=== PATIENT | female | born 1960 | race Caucasian/White ===

== ENCOUNTER 2020-04-16 09:00 | Outpatient (REF) | payer OTHER, SELFPAY ==
[2020-04-16 11:20] LABS: MANUAL DIFF FLAG NO
[2020-04-16 11:26] LABS: Basophils Absolute Auto 0.1 X10*3/uL (0.0-0.2); Basophils Percent Auto 0.8 % (0-2); Eosinophils Absolute Auto 0.2 X10*3/uL (0.0-0.4); Eosinophils Percent Auto 2.2 % (0-4); Hematocrit 44.3 % (37-47); Hemoglobin 14.2 g/dl (12.0-16.0); Imm Gran Abs Auto 0.04 X10*3/uL (0.00-0.03); Imm Gran Pct Auto 0.4 % (0.0-0.4); Lymphocytes Absolute Auto 2.7 X10*3/uL (1.2-4.9); Lymphocytes Percent Auto 29.3 % (20-40); Mean Corpuscular HGB Conc 32.1 g/dl (31.0-35.0); Mean Corpuscular Hemoglobin 29.4 pg (27.0-33.0); Mean Corpuscular Volume 91.7 fL (80-98); Mean Platelet Volume 10.3 fL (9.4-12.3); Monocytes Absolute Auto 0.6 X10*3/uL (0.1-1.2); Monocytes Percent Auto 6.7 % (2-11); Neutrophils Absolute Auto 5.5 X10*3/uL (2.0-8.3); Neutrophils Percent Auto 60.6 % (45-73); Platelet Count 295 X10*3/uL (160-400); Red Blood Count 4.83 X10*6/uL (4.20-5.50); Red Cell Distribution Width 12.7 % (11.0-16.0); White Blood Count 9.1 X10*3/uL (4.8-10.8)
[2020-04-16 11:48] LABS: Alanine Aminotransferase 23 U/L (0-31); Albumin Level 4.2 g/dL (3.5-5.0); Alkaline Phosphatase 85 U/L (39-117); Anion Gap 10 (12-20); Aspartate Amino Transferase 25 U/L (5-31); Bilirubin Total 0.2 mg/dL (0.0-1.0); Blood Urea Nitrogen 17 mg/dL (9-16); Calcium 8.9 mg/dL (8.4-10.2); Carbon Dioxide 33 mmol/L (22-29); Chloride 103 mmol/L (96-108); Estimated Glomerular Filt Rate > 60; Glucose Fasting 92 mg/dL (60-99); Potassium 5.5 mmol/l (3.3-5.1); Sodium 140 mmol/L (135-145); Total Protein 6.7 g/dL (6.5-8.0)
[2020-04-16 12:11] LABS: TSH reflex Free T4 2.29 mIU/mL (0.32-4.0); Vitamin D 25-OH Total 18.3 ng/mL (>30)
[2020-04-16 12:23] LABS: Folate 6.9 ng/mL (> or = 4.0); Vitamin B12 798 pg/mL (200-900)
== END 2020-04-16 09:01 | disposition home or self-care (01) ==
LOC: HO.HMGCLDS 09:00
PROVIDERS: Absent Provider Internal Medicine; PCP Internal Medicine; Visit Provider Internal Medicine
DX: Z20.828 Contact with and (suspected) exposure to other viral communicable diseases (principal); F32.9 Major depressive disorder, single episode, unspecified; R44.0 Auditory hallucinations
CPT/HCPCS: 36415; 80053; 82306; 82607; 82746; 84443; 85025; C9803; U0003

== ENCOUNTER 2020-04-30 11:16 | Outpatient (REF) | payer OTHER, SELFPAY ==
--- NOTE | 2020-04-30 11:53 | MM_ITS ---
EXAMINATION: MM SCREENING DIGITAL BREAST TOMOSYNTHESIS, BILATERAL CLINICAL INFORMATION: Screening. Asymptomatic. The lifetime risk of breast cancer based on the Tyrer-Cuzick Model is 4%. COMPARISON: Mammography: 02/27/2019, 04/15/2017 TECHNIQUE: Digital breast tomosynthesis is performed in both the craniocaudal and mediolateral oblique views along with computer-aided detection (CAD). Synthesized 2D images are generated from the tomosynthesis. FINDINGS: There are scattered areas of fibroglandular density (ACR BI-RADS breast composition Category b). There are no significant masses, abnormal calcifications, or other abnormalities. No significant changes. Small dermal lesion posterior inferior right breast. MM/MM tomosynthesis screening BI IMPRESSION: No significant changes from prior exams. ASSESSMENT: BI-RADS 1: Negative RECOMMENDATION: Routine annual mammography screening. This patient's information was entered into a reminder system with a target due date for their next mammogram.
[2020-04-30 14:20] LABS: Anion Gap 14 (12-20); Carbon Dioxide 26 mmol/L (22-29); Chloride 103 mmol/L (96-108); Potassium 4.5 mmol/l (3.3-5.1); Sodium 138 mmol/L (135-145)
[2020-04-30 15:01] LABS: Vitamin B12 679 pg/mL (200-900)
[2020-05-05 13:38] LABS: Vitamin D 25-OH, D2 <4 ng/mL; Vitamin D 25-OH, D3 53 ng/mL; Vitamin D 25-OH, Total 53 ng/mL (30-100)
== END 2020-04-30 11:17 | disposition home or self-care (01) ==
LOC: HO.MAMMO 11:16
PROVIDERS: PCP Internal Medicine; Visit Provider Internal Medicine
DX: E87.5 Hyperkalemia (principal); R53.83 Other fatigue; Z78.0 Asymptomatic menopausal state; E55.9 Vitamin D deficiency, unspecified
CPT/HCPCS: 77063; 77067; 80051; 82306; 82607

== ENCOUNTER 2020-05-13 15:29 | Outpatient (REF) | payer OTHER, SELFPAY ==
--- NOTE | 2020-05-13 16:00 | MR_ITS ---
EXAMINATION: MR BRAIN WITHOUT CONTRAST CLINICAL INFORMATION: Encephalopathy COMPARISON: None. TECHNIQUE: MRI of the brain was obtained using routine sequences without contrast. FINDINGS: Posterior fossa structures are normal. The craniocervical junction is normal. Midline structures including the posterior pituitary bright spot are normal. There is no intracranial mass, mass effect, or shift of midline structures. No abnormal extra axial fluid collection. The lateral and third ventricles are normal and proportionate to the subarachnoid spaces and there is no evidence of hydrocephalus. There is no acute ischemia. Scattered foci of T2 prolongation present throughout the subcortical and periventricular white matter. No pathological magnetic susceptibility artifact is demonstrated. The intracranial vascular flow voids including the major dural venous sinuses are preserved. Mastoid air cells are clear. Mild mucosal thickening throughout the ethmoid air cells. Globes and orbits are symmetric. MR/MR head/brain wo con IMPRESSION: * No acute or subacute intracranial pathology. * There are scattered nonspecific foci of white matter signal abnormality. 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
== END 2020-05-13 15:30 | disposition home or self-care (01) ==
LOC: HO.MRI 15:29
PROVIDERS: Visit Provider Psychiatry & Neurology Neurology
DX: G93.40 Encephalopathy, unspecified (principal)
CPT/HCPCS: 70551

== ENCOUNTER 2020-07-11 16:22 | Outpatient (REF) | payer OTHER, SELFPAY | END 2020-07-11 16:23 | disposition home or self-care (01) | LOC: HO.LNP 16:22 | PROVIDERS: Visit Provider Hospitalist | DX: J45.21 Mild intermittent asthma with (acute) exacerbation (principal); Z20.822 Contact with and (suspected) exposure to COVID-19 | CPT/HCPCS: U0003; U0005 ==

== ENCOUNTER 2020-07-22 10:01 | Emergency (ER) | payer OTHER, SELFPAY ==
[2020-07-22 10:47] VITALS: PULSE 78; RESP 18; O2SAT 98; BMI 26.2
== END 2020-07-22 14:38 | disposition left against medical advice (07) ==
PROVIDERS: Emergency Provider Emergency Medicine; PCP Internal Medicine
DX: R10.9 Unspecified abdominal pain (principal); R11.0 Nausea
CPT/HCPCS: 99282

== ENCOUNTER 2020-08-26 13:56 | Outpatient (REF) | payer OTHER, SELFPAY ==
[2020-08-26 16:28] LABS: MANUAL DIFF FLAG NO
[2020-08-26 16:34] LABS: Basophils Absolute Auto 0.1 X10*3/uL (0.0-0.2); Basophils Percent Auto 0.9 % (0-2); Eosinophils Absolute Auto 0.1 X10*3/uL (0.0-0.4); Eosinophils Percent Auto 1.5 % (0-4); Hemoglobin 14.4 g/dl (12.0-16.0); Imm Gran Abs Auto 0.03 X10*3/uL (0.00-0.03); Imm Gran Pct Auto 0.4 % (0.0-0.4); Lymphocytes Absolute Auto 2.4 X10*3/uL (1.2-4.9); Lymphocytes Percent Auto 30.5 % (20-40); Mean Corpuscular Hemoglobin 29.3 pg (27.0-33.0); Mean Corpuscular Volume 91.5 fL (80-98); Mean Platelet Volume 10.6 fL (9.4-12.3); Monocytes Absolute Auto 0.5 X10*3/uL (0.1-1.2); Monocytes Percent Auto 5.8 % (2-11); Neutrophils Absolute Auto 4.8 X10*3/uL (2.0-8.3); Neutrophils Percent Auto 60.9 % (45-73); Platelet Count 293 X10*3/uL (160-400); Red Blood Count 4.92 X10*6/uL (4.20-5.50); White Blood Count 7.9 X10*3/uL (4.8-10.8)
[2020-08-26 17:26] LABS: Alanine Aminotransferase 34 U/L (0-31); Anion Gap 15 (12-20); Aspartate Amino Transferase 29 U/L (5-31); Blood Urea Nitrogen 21 mg/dL (9-16); Calcium 9.3 mg/dL (8.4-10.2); Carbon Dioxide 27 mmol/L (22-29); Chloride 101 mmol/L (96-108); Cholesterol 266 mg/dL; Estimated Glomerular Filt Rate > 60; Glucose Fasting 86 mg/dL (60-99); HDL Cholesterol 78 mg/dL; LDL Cholesterol Calculated 166 mg/dl; Potassium 4.1 mmol/L (3.3-5.1); Sodium 139 mmol/L (135-145); Triglycerides 110 mg/dL
[2020-08-26 17:50] LABS: Vitamin D 25-OH Total 34.2 ng/mL (>30)
[2020-08-29 09:01] LABS: HPV 16 RNA NOT DETECTED (NOT DETECTED); HPV mRNA E6/E7 rflx Detected (Not Detected)
== END 2020-08-26 13:57 | disposition home or self-care (01) ==
LOC: HO.HMGCLDS 13:56
PROVIDERS: PCP Internal Medicine; Visit Provider Internal Medicine
DX: Z00.01 Encounter for general adult medical examination with abnormal findings (principal); Z12.4 Encounter for screening for malignant neoplasm of cervix; Z11.51 Encounter for screening for human papillomavirus (HPV); E78.5 Hyperlipidemia, unspecified; F32.9 Major depressive disorder, single episode, unspecified; I10 Essential (primary) hypertension
CPT/HCPCS: 36415; 80048; 80061; 82306; 84450; 84460; 85025; 87624; 87625; 88141; 88142

== ENCOUNTER 2020-11-12 17:13 | Outpatient (REF) | payer OTHER, SELFPAY | END 2020-11-12 17:14 | disposition home or self-care (01) | LOC: HO.LAB 17:13 | PROVIDERS: Visit Provider Nurse Practitioner Family | DX: R05 Cough (principal); Z20.822 Contact with and (suspected) exposure to COVID-19 | CPT/HCPCS: U0003; U0005 ==

== ENCOUNTER 2020-11-13 11:43 | Outpatient (REF) | payer OTHER, SELFPAY ==
--- NOTE | ~2020-11-13 | XR_ITS ---
EXAMINATION: XR CHEST CLINICAL INFORMATION: Cough. COMPARISON: None TECHNIQUE: 2 views of the chest were obtained. FINDINGS: No significant abnormality is noted involving the heart, lungs, mediastinum, bony thorax or soft tissues. XR/XR chest 2V IMPRESSION: Unremarkable chest examination.
== END 2020-11-13 11:44 | disposition home or self-care (01) ==
LOC: HO.HMGCX 11:43
PROVIDERS: PCP Internal Medicine; Visit Provider Internal Medicine
DX: R05 Cough (principal)
CPT/HCPCS: 71046

== ENCOUNTER → 2020-11-28 09:21 | Outpatient (BNVA) | payer OTHER, SELFPAY | PROVIDERS: PCP Internal Medicine; Referring Provider Internal Medicine; Visit Provider Surgery | DX: L72.3 Sebaceous cyst (principal) | CPT/HCPCS: 99202 ==

== ENCOUNTER 2020-12-06 13:40 | Outpatient (REF) | payer OTHER, SELFPAY ==
[2020-12-06 13:44] VITALS: BP 133/75; PULSE 79; RESP 17; TEMP 36.7; O2SAT 98; BMI 27.8
--- NOTE | 2020-12-06 15:29 | P.OP_ITS ---
Operative Note Operative Note Date of Service: 12/06/20 Narrative: Preoperative diagnosis: epidermal inclusion cyst times 4 posterior neck Postoperative diagnosis: same Procedure: excision of epidermal inclusion cyst x4 posterior neck Surgeon: Troy Macias MD Senior Piping Designer: no physician Anesthesia: local Indications for procedure: 60-year-old female with previous history of infected cyst of the posterior neck now presenting with 4 irritating epidermal inclusion cyst of the posterior neck below the hairline. To her located adjacent to each other to the right of midline and 2 are located lateral in the left neck. Operative findings: Epidermal inclusion cyst x4 posterior neck Specimen: epidermal inclusion cyst x4 posterior neck Estimated blood loss: 5 mL Complications: none Procedure details: patient was brought to the minor surgery suite and placed in a prone position. The site of surgery was confirmed by the patient and informed consent confirmed. The patient's neck was prepped with Betadine and draped in a sterile fashion. Local anesthesia consisting of 1% lidocaine with epinephrine was infiltrated around each of the epidermal inclusion cyst. It should be noted that 2 Of the lesions located to the right of midline were directly adjacent to each other were excised with 1 incision. beginning with the 2 lesions on the right neck elliptical incision was created oriented transversely to include both cyst. This was carried out through subcutaneous tissue and around the cyst wall. Sharp dissection was used to excise the cyst completely. This was sent to pathology for further examination. Dermis was reapproximated using interrupted 3-0 Polysorb sutures. Skin was then closed using interrupted 4-0 nylon sutures. Attention was then directed to the medial left neck lesion were again local anesthesia was infiltrated around the lesion and an elliptical incision created with a scalpel. This was carried out through subcutaneous tissue and around the cyst wall. The lesion was excised and sent to pathology for further examination. Skin was then closed using interrupted 4-0 nylon sutures . Attention was then directed to the lateral left neck lesion were again additional local was infiltrated surrounding the lesion. An elliptical incision created in a transverse fashion was then made with a 15 blade. This was carried out through subcutaneous tissue and around the cyst wall. The lesion was completely excised and sent toPathology for further examination. Skin was then closed using interrupted 4-0 nylon sutures. Sterile dressings and paper tape were then applied. The patient tolerated the procedure well. She was discharged to home in stable condition.
== END 2020-12-06 13:41 | disposition home or self-care (01) ==
LOC: HO.MS 13:40
PROVIDERS: PCP Internal Medicine; Visit Provider Surgery
PROC: (CPT 11422; principal; 2020-12-06 13:50)
DX: L72.0 Epidermal cyst (principal); F32.9 Major depressive disorder, single episode, unspecified; Z79.899 Other long term (current) drug therapy
CPT/HCPCS: 11422 ×3; 12041; 88304

== ENCOUNTER → 2020-12-13 10:04 | Outpatient (BNVA) | payer OTHER, SELFPAY | PROVIDERS: PCP Internal Medicine; Referring Provider Internal Medicine; Visit Provider Surgery | DX: Z48.817 Encounter for surgical aftercare following surgery on the skin and subcutaneous tissue (principal); Z87.2 Personal history of diseases of the skin and subcutaneous tissue | CPT/HCPCS: 99212 ==

== ENCOUNTER 2021-07-09 10:44 | Outpatient (REF) | payer OTHER, SELFPAY ==
--- NOTE | ~2021-07-09 | CT_ITS ---
EXAMINATION: CT CHEST SCREENING CLINICAL INFORMATION: Current smoker. 46 pack year history. COMPARISON: Previous chest CT November 2019 TECHNIQUE: Multidetector volumetric CT imaging of the chest is performed without contrast using low dose technique. Additional 2D coronal and sagittal reformatted images and axial 3D maximum intensity projection (MIP) images are generated on the CT workstation. This CT examination was performed using dose optimization techniques as appropriate, variously including the following: *Automated exposure control *Adjustment of mA and/or kV according to patient size (this includes techniques or standardized protocols for targeted exams where dose is matched to indication/reason for exam; i.e. extremities or head) *Use of iterative reconstruction technique DLP: 46 mGy-cm FINDINGS: LUNGS: There is evidence of emphysema. There are 2 new heterogeneous or semisolid left lower lobe nodules measuring 5 mm axial image 384 and 389 series 5. Pulmonary nodules are otherwise stable. The largest previously identified pulmonary nodule is a 4 mm heterogeneous or semisolid right upper lobe nodule axial image 98 series 5. No endobronchial or endotracheal lesion. MEDIASTINUM: The mediastinum is normal. PLEURA: There is no pleural effusion. No pleural mass or thickening. AXILLA: No lymphadenopathy. UPPER ABDOMEN: There is a 1.8 x 2.6 cm low-attenuation lesion in the right lobe of the liver that is stable. OSSEOUS STRUCTURES: There are degenerative changes of the spine.. CT/CT lung screening IMPRESSION: Emphysema. 2 new 5 mm heterogeneous or semisolid left lobe lower lobe nodules. Otherwise pulmonary nodules are stable. ASSESSMENT: Lung-RADS category 2: Benign RECOMMENDATION: Annual low-dose chest CT follow-up recommended.
== END 2021-07-09 10:45 | disposition home or self-care (01) ==
LOC: HO.CT 10:44
PROVIDERS: PCP Internal Medicine; Visit Provider Physician Assistant Medical
DX: Z12.2 Encounter for screening for malignant neoplasm of respiratory organs (principal); F17.200 Nicotine dependence, unspecified, uncomplicated
CPT/HCPCS: 71271

== ENCOUNTER → 2021-09-30 09:59 | Outpatient (BNVA) | payer OTHER, SELFPAY | PROVIDERS: PCP Internal Medicine; Referring Provider Internal Medicine; Visit Provider Surgery | DX: L72.3 Sebaceous cyst (principal) | CPT/HCPCS: 99212 ==

== ENCOUNTER 2021-10-24 | Outpatient (REF) | payer MEDICAID, SELFPAY ==
[2021-10-24 11:13] VITALS: BP 114/63; PULSE 90; RESP 16; TEMP 36.6; O2SAT 95
[2021-10-24 11:22] VITALS: BMI 29.2
--- NOTE | 2021-10-24 12:30 | W.PM.OPN ---
Operative Note Operative Note Date of Service: 10/24/21 Narrative: Preoperative diagnosis:Epidermal inclusion cyst x4 posterior neck, x1 left axilla, x1 left chest Postoperative diagnosis: same Procedure: excision of epidermal inclusion cyst x4 posterior neck, x1 left axilla, x1 left chest Surgeon: Troy Macias MD Director General: none Anesthesia: local Indications for procedure: 60-year-old female with history of multiple infected skin cyst presenting for excision of previously infected skin cyst of the posterior neck, left axilla, and left chest Operative findings: multiple skin cysts including posterior neck measuring 0.5, 1 cm, 0.5, 0.75 cm in diameter; left axilla measuring 1 cm diameter, left chest measuring 1 cm diameter Specimen: epidermal inclusion cyst as noted above Estimated blood loss: 2 mL Complications: none Procedure details: patient was brought to the minor surgery suite and placed in a prone position. The site of surgery was identified by the patient including 4 cysts located in the posterior neck, located in the left axilla, and 1 located below the left breast the left chest. After assuring informed consent the skin was prepped with Betadine and draped in a sterile fashion. Local anesthesia consisting of 1% lidocaine with epinephrine was then infiltrated around each of the 4 cysts. The 4 inclusion cyst of the posterior neck were excised using a 15 blade scalpel, creating an elliptical incision oriented transversely to excise the entire cyst down into the subcutaneous tissue. Each lesion was then passed off table and sent to pathology for further examination. The skin incisions were then closed using interrupted 4-0 nylon sutures. Sterile dressings consisting of 4 x 4 gauze and paper tape were then applied. Attention was then directed to the left axilla. She was placed in a supine position. Left arm was placed over her head. Skin was then prepped with Betadine and draped in a sterile fashion. Local anesthesia was then infiltrated around the cyst as previously marked. Elliptical incision was then made with a scalpel carried out through subcutaneous tissue and around the cyst wall. Cyst was then excised and sent to pathology for further examination. Skin was then closed using interrupted 4-0 nylon sutures. 2 x 2 gauze and Paper tape were then applied. Attention was then directed to the left chest cyst. This was an obviously infected cyst in could not be excised. The skin was prepped with Betadine and draped in a sterile fashion. Local anesthesia consisting of 1% lidocaine with epinephrine was then infiltrated surrounding the wound. This was then incised drained of a small purulent collection. The cyst wall was then excised with a scalpel. Wounds were then irrigated with saline solution. Wounds were then covered with dry sterile dressing and paper tape.
== END 2021-10-24 00:01 | disposition home or self-care (01) ==
LOC: HO.MS
PROVIDERS: PCP Internal Medicine; Visit Provider Surgery
PROC: (CPT 11423; principal; 2021-10-24 11:00)
DX: L72.0 Epidermal cyst (principal)
CPT/HCPCS: 11423; 11401 ×2; 88304

== ENCOUNTER → 2021-11-04 10:56 | Outpatient (BNVA) | payer MEDICARE, MEDICAID, SELFPAY | PROVIDERS: PCP Internal Medicine; Referring Provider Internal Medicine; Visit Provider Surgery | DX: Z13.89 Encounter for screening for other disorder (principal) ==

== ENCOUNTER 2021-12-10 07:34 | Outpatient (REF) | payer MEDICARE, MEDICAID, SELFPAY ==
--- NOTE | 2021-12-09 09:40 | P.CONAN_ITS ---
Documented by User: Tory Corona NP 12/09/21 09:41 HPI - Anesthesia Eval Consult details Narrative: 61yo F for Bilateral Excision Multiple Cyst groin and buttocks PMFSH Active Problems Active Problems: All Active Problems (Updated 10/24/21 @ 12:28 by Troy Macias MD) Folliculitis barbae (Acute) Hemorrhoids (Acute) Depression, major, recurrent (Acute) COVID-19 vaccination declined (Acute) Sebaceous cyst (Acute) Dyslipidemia (Acute) Vitamin D deficiency (Acute) Menopause (Acute) Refused influenza vaccine (Acute) Past Medical History Medical History Auditory hallucinations COVID-19 vaccination declined Depression, major, recurrent Dyslipidemia Refused influenza vaccine Family History Family History Father Substance use disorder Mother Lung cancer Substance use disorder Maternal Grandmother Diabetes mellitus Brother Lung cancer Substance use disorder Mental health disorder Brother Substance use disorder Brother Substance use disorder Brother Substance use disorder Brother Substance use disorder Sister Substance use disorder Mental health disorder Son No problems noted. Surgical History Surgical History H/O oophorectomy History of excision of epidermal inclusion cyst (10/24/21) Social History Social History Housing: Condominium Alcohol intake: current Alcohol intake frequency: does not drink Patient Tobacco Use Status: Current everyday Tobacco user e-Cigarette/Vaping Use: Never Used Are you DNR?: No Advance Directives: No Advance Directives Information Provided: Yes Recently lost weight without trying: No Nutrition Risks: No Nutritional Risk Patient : No service: No Current occupational status: unemployed Cognitive needs: No Hearing needs: No Vision needs: No Meds Allergies Allergy/AdvReac Type Severity Reaction Status Date / Time adhesive tape Allergy Intermediate BLISTER Verified 11/04/21 11:06 eggs Allergy Unknown nausea Verified 11/04/21 11:06 lorazepam AdvReac Unknown increased Verified 11/04/21 11:06 anxiety & anger Home Medications Medication Instructions Recorded Confirmed Last Taken Type atomoxetine 100 mg capsule 100 mg PO DAILY 08/27/21 11/04/21 12/10/21 History Exam Exam Date and Time: December 09, 2021 0940 Assessment and Plan Assessment Anesthesia Assessment: Chart Reviewed Documented by User: Annabel Fairchild MD 12/10/21 09:34 [facility] Past Medical History Medical History Auditory hallucinations COVID-19 vaccination declined Depression, major, recurrent Dyslipidemia Refused influenza vaccine Functional capacity: independent ambulation Patient : No Family History Family History Father Substance use disorder Mother Lung cancer Substance use disorder Maternal Grandmother Diabetes mellitus Brother Lung cancer Substance use disorder Mental health disorder Brother Substance use disorder Brother Substance use disorder Brother Substance use disorder Brother Substance use disorder Sister Substance use disorder Mental health disorder Son No problems noted. Family history of problems with anesthesia: No Surgical History Surgical History H/O oophorectomy History of excision of epidermal inclusion cyst (10/24/21) History of Problems with Anesthesia: No Social History Social History Housing: Condominium Alcohol intake: current Alcohol intake frequency: does not drink Patient Tobacco Use Status: Current everyday Tobacco user e-Cigarette/Vaping Use: Never Used Are you DNR?: No Advance Directives: No Advance Directives Information Provided: Yes Recently lost weight without trying: No Nutrition Risks: No Nutritional Risk Patient : No service: No Current occupational status: unemployed Cognitive needs: No Hearing needs: No Vision needs: No Meds Allergies Allergy/AdvReac Type Severity Reaction Status Date / Time adhesive tape Allergy Intermediate BLISTER Verified 11/04/21 11:06 eggs Allergy Unknown nausea Verified 11/04/21 11:06 lorazepam AdvReac Unknown increased Verified 11/04/21 11:06 anxiety & anger Home Medications Medication Instructions Recorded Confirmed Last Taken Type atomoxetine 100 mg capsule 100 mg PO DAILY 08/27/21 11/04/21 12/10/21 History Exam Airway Mallampati Class: II TM Dist: >3cm Neck ROM: Full Heart: RRR Lungs: CTA Assessment and Plan Final Anesthetic Review Family History of Problems with Anesthesia: No History of Problems with Anesthesia: No ASA Class: II Final Preanesthetic Review: No Changes in Pt Med Stat, Meds/Allgs Chart Reviewed, Consent Obtained/Reviewed and Anes Risks/Benef Reviewed Patient Risk: Low Procedure Risk: Low Anesthetic Plan Anesthetic Plan: GA Disposition: Standard PACU
[2021-12-10] VITALS (7 sets, daily range): BP systolic 103–130; BP diastolic 44–77; PULSE 71–88; RESP 16–18; TEMP 36.4–36.6; O2SAT 94–97; BMI 29.0
[2021-12-10] MEDS: Lactated Ringers 1,000 ML 100 ML IVCONT (07:59)
--- NOTE | 2021-12-10 08:54 | MHC.SHP ---
Pre-Procedural Eval Section A Date of Service: 12/10/21 The patient is an INPATIENT: No Changes since office visit: Yes Patient answered all questions; No Cold of Flu in the past 2 weeks, No New Medical Problems and No Changes in Medication The History & Physical has been completed within 30 days and I have reviewed it.: Yes Section B Chief Complaint: Other specified follicular disorders Allergies: Allergies Allergy/AdvReac Type Severity Reaction Status Date / Time adhesive tape Allergy Intermediate BLISTER Verified 11/04/21 11:06 eggs Allergy Unknown nausea Verified 11/04/21 11:06 lorazepam AdvReac Unknown increased Verified 11/04/21 11:06 anxiety & anger Plan Diagnosis/Plan: Unchanged I have reviewed the history and physical and performed a pertinent physical examination on my patient. No changes have occurred unless specified.
--- NOTE | 2021-12-10 10:14 | P.OP_ITS ---
Operative Note Operative Note Date of Service: 12/10/21 Narrative: Preoperative diagnosis: Bilateral groin cyst x3, left buttock cyst Postoperative diagnosis: same Procedure: excision of bilateral groin cyst 3 left buttock cyst 1 Surgeon: Troy Macias MD Taxation Accountant: no physician Anesthesia: general Indications for procedure: 61 old female with a previous history skin cyst with chronic infection presenting with 3 chronically draining cyst located in the pubis as well as the left buttock Operative findings: chronically inflamed draining epidermal inclusion cysts involving bilateral groins including 1 on the right 2 on left and 1 on the left buttock near the perianal skin each measures 1.5 cm in diameter. Lesions extend approximately 1.5 cm into the subcutaneous tissue. No abscess was encountered any of the cysts. Specimen: epidermal inclusion cyst x3 groins, x1 of buttock Estimated blood loss: 5 mL Complications: none Procedure details: patient was brought to the OR placed in a supine position. After administering general anesthesia she was placed in a frogleg position. A surgical time-out was called the consent confirmed. Patient received preoperative antibiotics and Venodyne boots were in place. Beginning on the right groin elliptical incision was made around the previously not cyst. This was carried out through subcutaneous tissue purulent trocars then used to dissect the lesion off the subcutaneous tissue. This was passed off the table and sent to pathology for further examination. Skin was then closed using interrupted 3-0 nylon sutures. Attention was then directed to the left groin where 2 cysts were identified 1 in the upper and the 2nd in the lower groin. Both lesions were X size with an elliptical incision down to subcutaneous tissue. Lesion with as excised off the subcutaneous tissue with electrocautery. Hemostasis was assured using electrocautery. Both lesions were then closed using interrupted 3-0 nylon sutures. Attention was then directed to the left buttock wound which was also reached 3 frog-leg position. Elliptical incision was made around this lesion and carried out through subcutaneous tissue. Lesion was excised using electrocautery. All 4 lesions were sent to pathology for further examination. Skin was closed using interrupted 3-0 nylon sutures. Sterile dressings consisting of fluff gauze were then applied. The patient tolerated the procedure well. Sponge, instrument, and needle counts reported as correct. The patient was transferred to PACU in stable condition.
[2021-12-10] MEDS: Acetaminophen 325 MG TABLET 975 MG PO (11:12)
--- NOTE | 2021-12-10 14:23 | HO.POSTANES ---
Post Anesthesia Evaluation Post Anesthesia Evaluation Vital Signs: Vital Signs Temp Pulse Resp BP Pulse Ox O2 Del Method O2 Flow Rate 12/10/21 11:12 97.9 F 83 16 107/58 L 95 Room Air 12/10/21 10:57 75 16 120/44 L 95 Room Air 12/10/21 10:42 76 16 114/45 L 94 Room Air 12/10/21 10:37 71 16 119/63 94 Room Air 12/10/21 10:32 72 16 113/77 94 Room Air 12/10/21 10:27 97.6 F 79 16 103/44 L 96 Nasal Cannula 2 12/10/21 07:40 98 F 88 18 130/75 97 Room Air Anesthesia: General LMA and General Mental Status: Awake Pain Control: Satisfactory Nausea/Vomiting: None Hydration: Adequate Anesthesia-Related Issues: No Anes. Related Issues
== END 2021-12-10 11:55 | disposition home or self-care (01) ==
LOC: HO.MS 07:34
PROVIDERS: PCP Internal Medicine; Visit Provider Surgery
PROC: (CPT 11402; principal; 2021-12-10 09:10)
DX: L72.0 Epidermal cyst (principal); L82.1 Other seborrheic keratosis
CPT/HCPCS: 11402 ×3; 88305; J0690; J1100; J2250; J2405; J2795; J3010

== ENCOUNTER → 2022-01-06 10:02 | Outpatient (BNVA) | payer MEDICARE, MEDICAID, SELFPAY | PROVIDERS: PCP Internal Medicine; Visit Provider Surgery | DX: L72.3 Sebaceous cyst (principal); Z79.899 Other long term (current) drug therapy | CPT/HCPCS: 99212 ==

== ENCOUNTER 2022-01-12 11:48 | Outpatient (REF) | payer MEDICARE, MEDICAID, SELFPAY ==
[2022-01-12 12:18] LABS: MANUAL DIFF FLAG NO
[2022-01-12 12:47] LABS: Basophils Absolute Auto 0.1 X10*3/uL (0.0-0.2); Eosinophils Absolute Auto 0.2 X10*3/uL (0.0-0.4); Eosinophils Percent Auto 2.4 % (0-4); Hematocrit 41.6 % (37.0-47.0); Hemoglobin 13.7 g/dl (12.0-16.0); Imm Gran Abs Auto 0.02 X10*3/uL (0.00-0.03); Imm Gran Pct Auto 0.3 % (0.0-0.4); Lymphocytes Absolute Auto 2.6 X10*3/uL (1.2-4.9); Lymphocytes Percent Auto 36.7 % (20-40); Mean Corpuscular HGB Conc 32.9 g/dl (31.0-35.0); Mean Corpuscular Hemoglobin 28.9 pg (27.0-33.0); Mean Corpuscular Volume 87.8 fL (80.0-98.0); Monocytes Absolute Auto 0.5 X10*3/uL (0.1-1.2); Monocytes Percent Auto 7.6 % (2-11); Neutrophils Absolute Auto 3.7 x10*3/uL (2.0-8.3); Platelet Count 288 X10*3/uL (160-400); Red Blood Count 4.74 X10*6/uL (4.20-5.50); Red Cell Distribution Width 12.7 % (11.0-16.0); White Blood Count 7.1 X10*3/uL (4.8-10.8)
[2022-01-12 13:09] LABS: Alanine Aminotransferase 28 U/L (0-31); Albumin Level 4.2 g/dL (3.5-5.0); Alkaline Phosphatase 89 U/L (39-117); Anion Gap 13 (12-20); Aspartate Amino Transferase 23 U/L (5-31); Bilirubin Total 0.3 mg/dL (0.0-1.0); Blood Urea Nitrogen 11 mg/dL (9-16); Calcium 9.2 mg/dL (8.4-10.2); Carbon Dioxide 29 mmol/L (22-29); Chloride 102 mmol/L (96-108); Cholesterol 243 mg/dL; Estimated Glomerular Filt Rate > 60; Glucose Random 83 mg/dL (60-115); HDL Cholesterol 57 mg/dL; LDL Cholesterol Calculated 165 mg/dl; Potassium 5.2 mmol/L (3.3-5.1); Sodium 139 mmol/L (135-145); Total Protein 6.9 g/dL (6.5-8.0); Triglycerides 109 mg/dL
[2022-01-12 13:31] LABS: TSH reflex Free T4 2.82 uIU/mL (0.32-4.0); Vitamin D 25-OH Total 29.7 ng/mL (>30)
[2022-01-13 04:57] LABS: CT PCR NOT DETECTED (Not Detect.); NG PCR NOT DETECTED (Not Detect.)
[2022-01-17 06:12] LABS: HPV mRNA E6/E7 rflx Not Detected (Not Detected)
== END 2022-01-12 11:49 | disposition home or self-care (01) ==
LOC: HO.LAB 11:48
PROVIDERS: PCP Internal Medicine; Visit Provider Advanced Practice Midwife
DX: Z01.419 Encounter for gynecological examination (general) (routine) without abnormal findings (principal); E87.5 Hyperkalemia; K52.9 Noninfective gastroenteritis and colitis, unspecified; E78.5 Hyperlipidemia, unspecified; E55.9 Vitamin D deficiency, unspecified; F32.9 Major depressive disorder, single episode, unspecified; Z78.0 Asymptomatic menopausal state; Z11.3 Encounter for screening for infections with a predominantly sexual mode of transmission; Z11.51 Encounter for screening for human papillomavirus (HPV)
CPT/HCPCS: 36415; 80053; 80061; 82306; 84443; 85025; 87491; 87591; 87624; 88142

== ENCOUNTER 2022-01-13 12:25 | Outpatient (REF) | payer MEDICARE, MEDICAID, SELFPAY ==
[2022-01-13 17:34] LABS: E. coli EAEC Not Detected (Not Detect.); E. coli EPEC Not Detected (Not Detect.); E. coli ETEC Not Detected (Not Detect.); Plesiomonas shigelloides Not Detected (Not Detect.); Salmonella Not Detected (Not Detect.); Vibrio Not Detected (Not Detect.); Vibrio Cholerae Not Detected (Not Detect.); Yersinia enterocolitica Not Detected (Not Detect.)
[2022-01-13 17:35] LABS: Adenovirus F 40/41 Not Detected (Not Detect.); Astrovirus Not Detected (Not Detect.); Cryptosporidium Not Detected (Not Detect.); Cyclospora cayetanensis Not Detected (Not Detect.); E. coli STEC Not Detected (Not Detect.); Entamoeba histolytica Not Detected (Not Detect.); Giardia lamblia Not Detected (Not Detect.); Norovirus GI/GII Not Detected (Not Detect.); Rotavirus A Not Detected (Not Detect.); Sapovirus Not Detected (Not Detect.); Shigella sp./EIEC Not Detected (Not Detect.)
[2022-01-13 17:39] LABS: Campylobacter Detected (Not Detect.)
== END 2022-01-13 12:26 | disposition home or self-care (01) ==
LOC: HO.HMGCLDS 12:25
PROVIDERS: PCP Internal Medicine; Visit Provider Internal Medicine
DX: K52.9 Noninfective gastroenteritis and colitis, unspecified (principal)
CPT/HCPCS: 36415; 87177; 87209; 87507

== ENCOUNTER 2022-02-10 10:51 | Outpatient (REF) | payer MEDICARE, MEDICAID, SELFPAY ==
[2022-02-10 11:00] VITALS: BP 131/65; PULSE 89; RESP 18; TEMP 36.7; O2SAT 99
--- NOTE | 2022-02-10 12:17 | W.PM.OPN ---
Operative Note Operative Note Date of Service: 02/10/22 Narrative: Preoperative diagnosis: Epidermal inclusion cyst right axilla and right breast Postoperative diagnosis: Same Procedure: Excision of epidermal inclusion cyst right axilla and right breast Surgeon: Troy Macias MD Supercalender Operator Helper: No physician Anesthesia: Local 2% lidocaine with epinephrine Indications for procedure: Painful epidermal inclusion cyst of right axilla and right breast Operative findings: Right axillary epidermal inclusion cyst measuring approximately 2 cm in diameter. Epidermal inclusion cyst of the right breast in the nipple-areolar complex measuring approximately 1 cm in diameter Specimen: Epidermal inclusion cyst right axilla and right breast Estimated blood loss: 2 mL Complications: None Procedure details: Patient was brought to the minor surgery suite and placed in a supine position. Site of surgery was confirmed by the patient. After assuring informed consent the skin was prepped with Betadine and draped in a sterile fashion. Local anesthesia was infiltrated around both lesions. Starting in the axilla an elliptical incision was created oriented in a transverse fashion around the palpable cyst. This was carried out through subcutaneous tissue around the cyst wall. This was passed off the table and sent to pathology for further examination. After assuring adequate hemostasis with light pressure the skin was closed using interrupted 4-0 nylon sutures. Attention was then directed to the right breast with lesion located in the 2 o'clock position in the nipple-areolar complex was also anesthetized with local anesthesia. Elliptical incision was then created in a radial fashion from the nipple. This was carried out through subcutaneous tissue and around the cyst wall. Once again this was passed off the table and sent to pathology for further examination. Skin was then closed using interrupted 4-0 nylon sutures. Sterile dressings consisting of 2 x 2 gauze and Tegaderm were then applied. The patient tolerated the procedure well. Sponge, instrument, and needle counts reported as correct. The patient was transferred to PACU in stable condition.
== END 2022-02-10 10:52 | disposition home or self-care (01) ==
LOC: HO.MS 10:51
PROVIDERS: PCP Internal Medicine; Visit Provider Surgery
PROC: (CPT 11602; principal; 2022-02-10 11:00)
PROC: (CPT 11602; 2022-02-10 11:00)
DX: C44.521 Squamous cell carcinoma of skin of breast (principal)
CPT/HCPCS: 11602; 11601; 88304; 88305

== ENCOUNTER → 2022-02-17 14:00 | Outpatient (BNVA) | payer MEDICARE, MEDICAID, SELFPAY | PROVIDERS: PCP Internal Medicine; Referring Provider Internal Medicine; Visit Provider Surgery | DX: Z08 Encounter for follow-up examination after completed treatment for malignant neoplasm (principal); C44.521 Squamous cell carcinoma of skin of breast; L72.3 Sebaceous cyst | CPT/HCPCS: 99212 ==

== ENCOUNTER 2022-03-02 14:23 | Outpatient (REF) | payer OTHER, SELFPAY ==
--- NOTE | ~2022-03-02 | MM_ITS ---
EXAMINATION: MM SCREENING DIGITAL BREAST TOMOSYNTHESIS, BILATERAL CLINICAL INFORMATION: Screening. Asymptomatic. History squamous cell cancer right areola border. The lifetime risk of breast cancer based on the Tyrer-Cuzick Model is 4%. COMPARISON: Mammography: 04/30/2020, 02/27/2019, 04/15/2017 TECHNIQUE: Digital breast tomosynthesis is performed in both the craniocaudal and mediolateral oblique views along with computer-aided detection (CAD). Synthesized 2D images are generated from the tomosynthesis. FINDINGS: There are scattered areas of fibroglandular density (ACR BI-RADS breast composition Category b). There are no significant masses, abnormal calcifications, or other abnormalities. Parenchymal pattern is similar to prior studies. There is no developing density or architectural abnormality. The axilla and skin contours are unremarkable. No significant changes. MM/MM tomosynthesis screening BI IMPRESSION: No mammographic evidence of malignancy. ASSESSMENT: BI-RADS 1: Negative RECOMMENDATION: Routine annual mammography screening. This patient's information was entered into a reminder system with a target due date for their next mammogram.
== END 2022-03-02 14:24 | disposition home or self-care (01) ==
LOC: HO.MAMMO 14:23
PROVIDERS: PCP Internal Medicine; Visit Provider Advanced Practice Midwife
DX: Z12.31 Encounter for screening mammogram for malignant neoplasm of breast (principal)
CPT/HCPCS: 77063; 77067

== ENCOUNTER 2022-09-02 12:31 | Outpatient (AMB) | payer OTHER, SELFPAY ==
--- OUTSIDE RECORDS SUMMARY | 2022-09-02 12:33 | XMS_ITS | Continuity of Care Document ---
Author Name Unknown Organization [facility] Address [address] [place] [address]- Care Team Providers Care Human Services Manager Name Role Phone Mikaela NASH, Leda Lee Primary Care Physician [place] [facility] [place] - 02/06/[address] [address]- Encounter Diagnosis Major depressive disorder, recurrent, moderate(Final) - Discharge Disposition: A-D/C Home Attending Physician: Sincere Perry MD Admitting Physician: Sincere Perry MD Referring Physician: Not on Staff, Referring MD Allergies, Adverse Reactions, Alerts No Known Medication Allergies Immunizations Not Given Vaccine Date Status Refusal Reason pneumococcal 23-valent vaccine 07/10/14 Not Given Patient Refuses influenza virus vaccine, inactivated 07/10/14 Not Given Patient Refuses Medications duloxetine 20 mg oral enteric coated capsule See Instructions, 1 capsule By Mouth for 5 days then 1 cap bid for 5 days then 2 caps qam, 1 cap qhs, # 30 capsule, 0 Refills, Maintenance, 05/20/20 12:56:00 EST, [facility]/pharmacy #[id number], Partial fill upon patient request if the prescription is for a sched... Start Date: 05/20/20 Status: Ordered hydrOXYzine hydrochloride 10 mg oral tablet 2 tablet = 20 mg, By Mouth, 4 times a day, PRN for anxiety, 0 Refills, Maintenance, 05/07/20 15:24:00 EST, Tablet, Partial fill upon patient request if the prescription is for a schedule II opioid drug. Start Date: 05/07/20 Status: Ordered SEROquel 25 mg oral tablet 25 mg, 1, tablet, By Mouth, Daily at bedtime, Refills 0, Maintenance, 05/07/20 15:21:00 EST, Partial fill upon patient request if the prescription is for a schedule II opioid drug. Start Date: 05/07/20 Status: Ordered sertraline 100 mg oral tablet 2 tablet = 200 mg, By Mouth, Daily, # 90 tablet, 0 Refills, Maintenance, 05/07/20 15:22:00 EST, Tablet, Partial fill upon patient request if the prescription is for a schedule II opioid drug. Start Date: 05/07/20 Status: Ordered traZODone 50 mg oral tablet 50 mg, 1, tablet, By Mouth, Daily at bedtime, Refills 0, Maintenance, 05/07/20 15:22:00 EST, Partial fill upon patient request if the prescription is for a schedule II opioid drug. Start Date: 05/07/20 Status: Ordered Problem List Condition Effective Dates Status Health Status Inform ant Anxiety(Confirmed) Active H/O osteomyelitis(Confirmed) Active H/O hidradenitis suppurativa(Confirmed) Active C6-C7 Cervical disc herniation(Confirmed) Active Social History Social History Type Response Smoking Status Former smoker; Tobac co user in household: No; Type: Cigarettes entered on: 07/09/14 Sex
[2022-09-02 12:55] VITALS: BP 100/70; PULSE 79; O2SAT 98; BMI 28.4
--- NOTE | 2022-09-02 12:55 | MHC.PC.OV ---
Vital Signs 09/02/22 12:55 Height 5 ft 2 in Weight 155 lb 6 oz BMI 28.4 BP 100/70 Blood Pressure Location Lt brachial Position Sitting Pulse 79 Pulse Source Pulse Oximeter Pulse Oximetry (%) 98 Oxygen Delivery Method Room Air Intake Visit Reasons: PE Intake Note: Pt is here today for PE Allergies adhesive tape Allergy (Intermediate, Verified 05/02/23 23:58) Blister egg Allergy (Unknown, Verified 05/02/23 23:58) Nausea lorazepam Adverse Reaction (Unknown, Verified 05/02/23 23:58) increased anxiety & anger Medication List - Last Reconciled 09/02/22 by Leda Al MD albuterol sulfate 90 mcg/actuation (ProAir HFA) 2 puffs inhalation Q4-6H PRN atomoxetine 100 mg PO DAILY clonazepam 0.25 mg PO DAILY PRN omega 1-vch-pgk-fish oil 1,000 mg (120 mg-180 mg) (Fish Oil) 1 cap PO DAILY quetiapine 25 mg PO BID Tobacco use date assessed: 09/02/22 HPI PE HPI Details 61-year-old lady here today for physical exam. Currently being seen by Psychiatry for treatment of depression/anxiety, ADD, currently doing well on present treatment> she is currently up-to-date with her cervical cancer screening and breast cancer screening, sees [facility] [place] [facility]. She had a screening colonoscopy done [address] Duffy, which only showed presence of hemorrhoids. She however has been complaining of feeling that something is present in her rectal area, interferes with her defecation, and notices occasional blood tinged stool. [facility] Medical History (Updated 04/29/23 @ 15:24 by Leda Al MD) Cough due to bronchospasm No vaccination-pt refuse Hemorrhoids with complication Erythema intertrigo Hemorrhoid thrombosis Anxiety ADHD Depression, major, recurrent COVID-19 vaccination declined Dyslipidemia Refused influenza vaccine Auditory hallucinations Surgical History History of hemorrhoidectomy History of excision of epidermal inclusion cyst (10/24/21) H/O oophorectomy Family History Father Substance use disorder Mother Lung cancer Substance use disorder Maternal Grandmother Diabetes mellitus Brother Lung cancer Substance use disorder Mental health disorder Brother Substance use disorder Brother Substance use disorder Brother Substance use disorder Brother Substance use disorder Sister Substance use disorder Mental health disorder Son No problems noted. Social History Housing: Condominium Alcohol intake: current Alcohol intake frequency: holidays/special occasions only Patient Tobacco Use Status: Current everyday Tobacco user Tobacco use type: Cigarette Cigarette Packs Per Day: 0.5 Cigarettes Per Day: 7 e-Cigarette/Vaping Use: Never Used Second Hand Smoke Exposure: No service: No Current occupational status: unemployed Cognitive needs: No Hearing needs: No Vision needs: No Female Reproductive History Menstrual Age of Menarche: 16 Questionnaire PHQ-9 Over the last 2 weeks, how often have you been bothered by any of the following problems? 1. Little interest or pleasure in doing things: several days 2. Feeling down, depressed, or hopeless: several days 3. Trouble falling or staying asleep, or sleeping too much: several days 4. Feeling tired or having little energy: several days 5. Poor appetite or overeating: several days 6. Feeling bad about yourself - or that you are a failure or have let yourself or your family down: more than half the days 7. Trouble concentrating on things, such as reading the newspaper or watching television: nearly every day 8. Moving or speaking so slowly that other people could have noticed. Or the opposite - being so fidgety or restless that you have been moving around a lot more than usual: several days Depression Screening Interpretation: Positive Depression Screening Follow-up: Existing condition, In treatment and Community Mental Health Worker F/U (Followed by psychiatry) 87157 - PHQ-9 Billing: Yes Source: Developed by Drs. Bahman Titus, Gena Martinez, Sergio Ching and colleagues, with an educational radha from [employer]. Thrive Questionnaire Declines Thrive assessment: No Date Thrive assessed: 09/02/22 I am a: Patient What is your living situation today?: I have a steady place to live Within the past 12 months, did the food you bought not last and you didn't have the money to get more?: Never true Within the past 12 months, did you worry whether your food would run out before you got money to buy more?: Never true Do you have trouble getting transportation to medical appointments?: No Do you have trouble with day-to-day activities such as bathing, preparing meals, shopping, managing finances, etc.?: No Are you currently unemployed and looking for a job?: Yes Are you interested in more education?: Yes Please select the resources that you would like help with: Job search/training and Education AUDIT C Alcohol Use Questionnaire (AUDIT-C) 1. How often do you have a drink containing alcohol?: Never Total Score: 0 ARCELIA-7 AMB Questionnaire ARCELIA-7 Date ARCELIA - 7 assessed: 09/02/22 Feeling nervous, anxious, or on edge: 1 = Several days Not being able to stop or control worryin = Several days Worrying too much about different things: 1 = Several days Trouble relaxin = Several days Being so restless that it is hard to sit still: 1 = Several days Becoming easily annoyed or irritable: 1 = Several days Feeling afraid as if something awful might happen: 1 = Several days Total ARCELIA-7 score (0-4 normal; 5-9 mild; 10-14 moderate; 15-21 severe): 7 Source: Developed by Drs. Bahman Titus, Gena Martinez, Sergio Ching and colleagues, with an educational radha from [employer]. ARCELIA-7 Assessment Billing ARCELIA-7 Assessment Tool: ARCELIA-7 Assessment 45783 Review of Systems Const Denies chills and Denies fever(s) Eyes Denies change in vision ENT Reports no additional complaints Card Denies chest pain, Denies dyspnea and Denies dyspnea on exertion Resp Denies cough, Denies dyspnea and Denies dyspnea on exertion GI Reports as per HPI, Denies hematochezia and Denies change in bowel habits Denies hematuria, Denies difficulty voiding, Denies urinary incontinence, Denies urinary hesitancy, Denies urinary urgency and Denies vaginal discharge Musc Denies back pain and Denies limited range of motion Skin/Breast Denies breast pain and Denies breast mass Neuro Denies focal weakness and Denies convulsions Psych Denies depression and Denies mood swings Endo Reports no additional complaints Lefty/Lymph Reports no additional complaints Aller/Immun Reports no additional complaints Physical exam (Primary Care) Vital Signs: Last Vital Signs Pulse 79 09/02/22 12:55 BP 100/70 09/02/22 12:55 Pulse Ox 98 09/02/22 12:55 Oxygen Delivery Method Room Air 09/02/22 12:55 BMI result Body Mass Index 28.4 Tobacco/Smoking Status: Tobacco use Status Tobacco use date assessed 09/02/22 09/02/22 13:12 Patient Tobacco Use Status Current everyday Tobacco 09/02/22 13:12 e-Cigarette/Vaping Use Never Used 09/02/22 13:12 Are you ready to quit: No Depression Screening Interpretation: Positive Depression Screening Follow-up: Existing condition, In treatment and Community Mental Health Worker F/U (Followed by psychiatry) Thrive Assessment: Date of Thrive Assessment Date Thrive assessed 09/02/22 09/02/22 13:12 Const Other: Alert oriented x3, no acute distress noted, normal gait Orientation/consciousness: patient oriented x3 HENMT Head: Yes normocephalic and Yes atraumatic Ears: hearing grossly normal bilaterally, TM's normal bilaterally and EAC's normal General nose exam: Normal external nose present and No nasal discharge present Face and sinus: Yes face symmetric Mouth: Normal oral and palatal mucosa present and moist mucous membranes Eyes General: appearance normal, both eyes and all related structures Neck Neck: Yes full ROM, Yes no lymphadenopathy and Yes supple Chest Breast/axilla palpation: normal palpation of the breasts Resp Auscultation: clear to auscultation bilaterally Cardio Rate: regular rate Rhythm: regular rhythm Heart sounds: S1 normal heart sound present and S2 normal heart sound present GI Palpation (GI): Soft to palpation, nontender, no guarding and no masses Rectal Exam - Female: hemorrhoids (Thrombosed, no active bleeding) Back/Spine/Pelvis Back: No back tenderness Skin Other: hyper pigmentation noted under both breasts and axillary area Neuro General: patient oriented x3, gait normal, moves all extremities, Normal light touch and pain sensation, no focal motor deficits and CN's II-XI intact bilaterally Extrem General: Yes full ROM, Yes no joint enlargement, Yes no pedal edema and Yes normal gait Psych Appearance: grossly normal Mental Status: mental status grossly normal Speech and movement: Normal speech and movement present Affect: normal affect Attitude: cooperative Thought process: Normal thought process present Thought content: Normal thought content present Assessment and Plan Assessment & Plan (1) Annual visit for general adult medical examination with abnormal findings: Code(s): Z00.01 - Encounter for general adult medical examination with abnormal findings Plan: Will check appropriate labs. Recommended dental visit every 6 months and regular eye exams, at least every 2 years. Take adequate calcium in diet and vitamin-D 3 at 2000 IU per cap once a day, in addition to weight-bearing exercises to help maintain good muscle tone and weight control. Instructed to do self-breast exam, and can not to get yearly mammogram. Up-to-date with her cervical cancer screening, goes to [facility] [place] [facility] for her routine Pap and pelvic exam. Up-to-date with her screening colonoscopy, but declines getting any vaccines (2) Dyslipidemia: Code(s): E78.5 - Hyperlipidemia, unspecified Plan: fasting lipid profile ordered . Continue with taking Crane 3 fatty acid supplements , in addition to adherence to low-cholesterol diet and regular exercise, at least 30 minutes 3 to 4 times a week. Advised patient to make healthy food choices, eat more fruits, vegetables, whole grains, wild caught fish and low-fat dairy. Limit amount of meat and fried or fatty food products, as well as processed foods and fast foods. (3) Hemorrhoid thrombosis: Code(s): K64.5 - Perianal venous thrombosis Plan: Surgical consult ordered (4) COVID-19 vaccination declined: Code(s): Z28.21 - Immunization not carried out because of patient refusal (5) Depression, major, recurrent: Code(s): F33.9 - Major depressive disorder, recurrent, unspecified Plan: Currently followed by psychiatry (6) Refused influenza vaccine: Code(s): Z28.21 - Immunization not carried out because of patient refusal (7) Erythema intertrigo: Code(s): L30.4 - Erythema intertrigo Plan: Prescription sent for nystatin , with directions on a proper use. Keep areas under breasts dry and clean at all time Orders: Orders Alanine Aminotransferase 09/02/22 Z00.01 - Encounter for general adult medical examination with abnormal findings, Z78.0 - Asymptomatic menopausal state, E55.9 - Vitamin D deficiency, unspecified, E78.5 - Hyperlipidemia, unspecified Complete Blood Count Auto Diff 09/02/22 Z00. - Encounter for general adult medical examination with abnormal findings, K64.5 - Perianal venous thrombosis Aspartate Amino Transferase 09/02/22 Z00.01 - Encounter for general adult medical examination with abnormal findings, Z78.0 - Asymptomatic menopausal state, E55.9 - Vitamin D deficiency, unspecified, E78.5 - Hyperlipidemia, unspecified Lipid Panel 09/02/22 Z00.01 - Encounter for general adult medical examination with abnormal findings, Z78.0 - Asymptomatic menopausal state, E55.9 - Vitamin D deficiency, unspecified, E78.5 - Hyperlipidemia, unspecified Vitamin D 25-OH Total 09/02/22 Z00.01 - Encounter for general adult medical examination with abnormal findings, Z78.0 - Asymptomatic menopausal state, E55.9 - Vitamin D deficiency, unspecified, E78.5 - Hyperlipidemia, unspecified Referrals General Surgery Referral K64.5 - Perianal venous thrombosis Medications: New nystatin 1 appl topical BID PRN 30 grams 3RF rash Coding Level of Care Code Est Pt Prev Care 40-64y(80848) Diagnoses Annual visit for general adult medical examination with abnormal findings Z00.01 Dyslipidemia E78.5 Hemorrhoid thrombosis K64.5 COVID-19 vaccination declined Z28.21 Depression, major, recurrent F33.9 Refused influenza vaccine Z28.21 Erythema intertrigo L30.4 Additional Codes ARCELIA-7 Assessment Billing - ARCELIA-7 Assessment Tool: ARCELIA-7 Assessment [id number] ([id number])
== END 2022-09-02 14:21 | disposition home or self-care (01) ==
LOC: HO.HMGC 12:31
PROVIDERS: PCP Internal Medicine; Visit Provider Internal Medicine
DX: Z00.01 Encounter for general adult medical examination with abnormal findings (principal); E78.5 Hyperlipidemia, unspecified; K64.5 Perianal venous thrombosis; F33.9 Major depressive disorder, recurrent, unspecified; Z28.21 Immunization not carried out because of patient refusal; L30.4 Erythema intertrigo
CPT/HCPCS: 99396

== ENCOUNTER 2022-09-02 13:53 | Outpatient (REF) | payer OTHER, SELFPAY ==
[2022-09-02 17:00] LABS: MANUAL DIFF FLAG NO
[2022-09-02 17:17] LABS: Basophils Absolute Auto 0.1 X10*3/uL (0.0-0.2); Basophils Percent Auto 1.1 % (0-2); Eosinophils Absolute Auto 0.2 X10*3/uL (0.0-0.4); Eosinophils Percent Auto 2.6 % (0-4); Hematocrit 42.8 % (37.0-47.0); Hemoglobin 14.1 g/dl (12.0-16.0); Imm Gran Abs Auto 0.04 X10*3/uL (0.00-0.03); Imm Gran Pct Auto 0.6 % (0.0-0.4); Lymphocytes Absolute Auto 2.5 X10*3/uL (1.2-4.9); Lymphocytes Percent Auto 38.2 % (20-40); Mean Corpuscular HGB Conc 32.9 g/dl (31.0-35.0); Mean Corpuscular Hemoglobin 29.8 pg (27.0-33.0); Mean Corpuscular Volume 90.5 fL (80.0-98.0); Mean Platelet Volume 10.4 fL (9.4-12.3); Monocytes Absolute Auto 0.5 X10*3/uL (0.1-1.2); Neutrophils Absolute Auto 3.3 x10*3/uL (2.0-8.3); Neutrophils Percent Auto 49.5 % (45-73); Platelet Count 277 X10*3/uL (160-400); Red Blood Count 4.73 X10*6/uL (4.20-5.50); Red Cell Distribution Width 13.1 % (11.0-16.0); White Blood Count 6.7 X10*3/uL (4.8-10.8)
[2022-09-02 17:32] LABS: Alanine Aminotransferase 32 U/L (0-31); Aspartate Amino Transferase 26 U/L (5-31); Cholesterol 254 mg/dL; HDL Cholesterol 63 mg/dL; LDL Cholesterol Calculated 172 mg/dl; Triglycerides 96 mg/dL
[2022-09-02 17:46] LABS: Vitamin D 25-OH Total 29.3 ng/mL (>30)
== END 2022-09-02 13:54 | disposition home or self-care (01) ==
LOC: HO.HMGCLDS 13:53
PROVIDERS: PCP Internal Medicine; Visit Provider Internal Medicine
DX: Z00.01 Encounter for general adult medical examination with abnormal findings (principal); E55.9 Vitamin D deficiency, unspecified; E78.5 Hyperlipidemia, unspecified; K64.5 Perianal venous thrombosis; Z78.0 Asymptomatic menopausal state
CPT/HCPCS: 36415; 80061; 82306; 84450; 84460; 85025

== ENCOUNTER 2022-09-03 09:16 | Outpatient (REF) | payer OTHER, SELFPAY ==
--- NOTE | ~2022-09-03 | CT_ITS ---
EXAMINATION: CT CHEST SCREENING CLINICAL INFORMATION: 46 pack year history. Current smoker. COMPARISON: Previous CT scans most recent July 2021 TECHNIQUE: Multidetector volumetric CT imaging of the chest is performed without contrast using low dose technique. Additional 2D coronal and sagittal reformatted images and axial 3D maximum intensity projection (MIP) images are generated on the CT workstation. This CT examination was performed using dose optimization techniques as appropriate, variously including the following: *Automated exposure control *Adjustment of mA and/or kV according to patient size (this includes techniques or standardized protocols for targeted exams where dose is matched to indication/reason for exam; i.e. extremities or head) *Use of iterative reconstruction technique DLP: 45 mGy-cm FINDINGS: LUNGS: Mild paraseptal emphysema. The two 5 mm semisolid left lower lobe pulmonary nodules that were new on July 2021 exam are no longer seen. Small pulmonary nodules are otherwise stable. MEDIASTINUM: The mediastinum is normal. CORONARY ARTERY CALCIFICATION: None visualized on this study. PLEURA: There is no pleural effusion. No pleural mass or thickening. AXILLA: No lymphadenopathy. UPPER ABDOMEN: Stable low-attenuation liver and right renal lesions probably representing cysts. Stable low-attenuation left adrenal lesion suggestive of a benign lipid rich adenoma. OSSEOUS STRUCTURES: Degenerative changes of the spine. CT/CT lung screening IMPRESSION: Emphysema. Previously identified 5 mm semisolid left lower lobe nodules that were new on July 2021 exam no longer seen. Otherwise pulmonary nodules are stable. ASSESSMENT: Lung-RADS category 2: Benign RECOMMENDATION: Annual low-dose chest CT follow-up recommended
== END 2022-09-03 09:17 | disposition home or self-care (01) ==
LOC: HO.CT 09:16
PROVIDERS: PCP Internal Medicine; Visit Provider Physician Assistant Medical
DX: Z12.2 Encounter for screening for malignant neoplasm of respiratory organs (principal); F17.210 Nicotine dependence, cigarettes, uncomplicated
CPT/HCPCS: 71271

== ENCOUNTER → 2022-09-17 11:31 | Outpatient (BNVA) | payer OTHER, SELFPAY | PROVIDERS: PCP Internal Medicine; Referring Provider Internal Medicine; Visit Provider Surgery | DX: K64.8 Other hemorrhoids (principal) | CPT/HCPCS: 46600; 99212 ==

== ENCOUNTER 2022-10-20 06:44 | Day surgery (SDC) | payer OTHER, SELFPAY ==
[2022-10-20] VITALS (7 sets, daily range): BP systolic 108–139; BP diastolic 56–89; PULSE 83–91; RESP 16–18; TEMP 36.2–36.8; O2SAT 94–99; BMI 28.2
[2022-10-20] MEDS: Lactated Ringers 1,000 ML 100 ML IVCONT (07:45)
--- NOTE | 2022-10-20 08:03 | MHC.SHP ---
Pre-Procedural Eval Section A Date of Service: 10/20/22 Section B Chief Complaint: Other hemorrhoids Details of Present Illness: Has history of perianal comfort, along with chronic pain and discomfort with her hemorrhoids Relevant Family History (Specify if Yes): No Relevant Social History: None Present Medications: see Short Stay Collaborative assessment Medical History: Significant History ( depression, vitamin-D deficiency) Allergies: Allergies Allergy/AdvReac Type Severity Reaction Status Date / Time adhesive tape Allergy Intermediate Blister Verified 09/17/22 11:38 egg Allergy Unknown Nausea Verified 09/17/22 11:38 lorazepam AdvReac Unknown increased Verified 09/17/22 11:38 anxiety & anger Review of Systems Sugical H&P ROS: Negative: Constitution, Cardiovascular, Respiratory, Neurological, Psychiatric, Hem-Onc, Allergic/Immunologic, Gastrointestinal, Genitourinary, Musculoskeletal, Integumentary, Endocrine and Eyes/Ears/Nose/Throat Exam Surgical H&P Exam: Normal: HEENT, Normal: Heart, Normal: Lungs, Normal: Extremities, Normal: Abdomen, Normal: Skin and Normal: Neurological Plan Diagnosis/Plan: Unchanged I have reviewed the history and physical and performed a pertinent physical examination on my patient. No changes have occurred unless specified. Time Spent With Patient Time: Total time managing care of this patient today ____ minutes.
--- NOTE | 2022-10-20 08:20 | HO.ANESPROP2 ---
Documented by User: Tory Corona NP 10/19/22 10:25 HPI - Anesthesia Eval Consult details Narrative: 61yo F for EUA,Hemorrhoidectomy s/p cyst excision 11/2021 with GA-LMA 4 PMFSH Active Problems Active Problems: All Active Problems (Updated 09/17/22 @ 12:02 by Robbie Rai MD) Hemorrhoids with complication (Acute) Erythema intertrigo (Acute) Hemorrhoid thrombosis (Acute) Squamous cell carcinoma of right breast (Acute) Depression, major, recurrent (Acute) COVID-19 vaccination declined (Acute) Dyslipidemia (Acute) Vitamin D deficiency (Acute) Menopause (Acute) Refused influenza vaccine (Acute) Past Medical History Medical History ADHD Anxiety Auditory hallucinations COVID-19 vaccination declined Depression, major, recurrent Dyslipidemia Erythema intertrigo Hemorrhoid thrombosis Hemorrhoids with complication Refused influenza vaccine Family History Family History Father Substance use disorder Mother Lung cancer Substance use disorder Maternal Grandmother Diabetes mellitus Brother Lung cancer Substance use disorder Mental health disorder Brother Substance use disorder Brother Substance use disorder Brother Substance use disorder Brother Substance use disorder Sister Substance use disorder Mental health disorder Son No problems noted. Family history of problems with anesthesia: No Surgical History Surgical History H/O oophorectomy History of excision of epidermal inclusion cyst (10/24/21) History of Problems with Anesthesia: No Social History Social History Housing: Condominium Alcohol intake: current Alcohol intake frequency: holidays/special occasions only Patient Tobacco Use Status: Current everyday Tobacco user Tobacco use type: Cigarette Cigarette Packs Per Day: 0.5 Cigarettes Per Day: 10.0 e-Cigarette/Vaping Use: Never Used Second Hand Smoke Exposure: No Use of substances other than those prescribed or required for medical reasons: No Are you DNR?: No Advance Directives: No Advance Directives Information Provided: Yes Advance Directives on File: No service: No Current occupational status: unemployed Cognitive needs: No Hearing needs: No Vision needs: No Meds Allergies Allergy/AdvReac Type Severity Reaction Status Date / Time adhesive tape Allergy Intermediate Blister Verified 09/17/22 11:38 egg Allergy Unknown Nausea Verified 09/17/22 11:38 lorazepam AdvReac Unknown increased Verified 09/17/22 11:38 anxiety & anger Home Medications Medication Instructions Recorded Confirmed Last Taken Type atomoxetine 100 mg capsule 100 mg PO DAILY 08/27/21 09/17/22 12/10/21 History clonazepam 0.5 mg tablet 0.25 mg PO DAILY PRN 09/02/22 09/17/22 Unknown History omega 3-lho-kbw-fish oil 1,000 mg 1 cap PO DAILY 09/02/22 09/17/22 Unknown History (120 mg-180 mg) capsule (Fish Oil) quetiapine 25 mg tablet 25 mg PO BID 09/02/22 09/17/22 Unknown History Exam Exam Date and Time: October 19, 2022 1023 Pertinent Lab Results Pertinent Lab Results: Laboratory Tests 09/02/22 13:57 WBC 6.7 Hgb 14.1 Hct 42.8 Plt Count 277 Assessment and Plan Assessment Anesthesia Assessment: Chart Reviewed Final Anesthetic Review Family History of Problems with Anesthesia: No History of Problems with Anesthesia: No Documented by User: Aby Beach DO 10/20/22 08:20 [facility] Past Medical History Medical History ADHD Anxiety Auditory hallucinations COVID-19 vaccination declined Depression, major, recurrent Dyslipidemia Erythema intertrigo Hemorrhoid thrombosis Hemorrhoids with complication Refused influenza vaccine Family History Family History Father Substance use disorder Mother Lung cancer Substance use disorder Maternal Grandmother Diabetes mellitus Brother Lung cancer Substance use disorder Mental health disorder Brother Substance use disorder Brother Substance use disorder Brother Substance use disorder Brother Substance use disorder Sister Substance use disorder Mental health disorder Son No problems noted. Family history of problems with anesthesia: No Surgical History Surgical History H/O oophorectomy History of excision of epidermal inclusion cyst (10/24/21) History of Problems with Anesthesia: No Social History Social History Housing: Condominium Alcohol intake: current Alcohol intake frequency: holidays/special occasions only Patient Tobacco Use Status: Current everyday Tobacco user Tobacco use type: Cigarette Cigarette Packs Per Day: 0.5 Cigarettes Per Day: 10.0 e-Cigarette/Vaping Use: Never Used Second Hand Smoke Exposure: No Use of substances other than those prescribed or required for medical reasons: No Are you DNR?: No Advance Directives: No Advance Directives Information Provided: Yes Advance Directives on File: No service: No Current occupational status: unemployed Cognitive needs: No Hearing needs: No Vision needs: No Meds Allergies Allergy/AdvReac Type Severity Reaction Status Date / Time adhesive tape Allergy Intermediate Blister Verified 09/17/22 11:38 egg Allergy Unknown Nausea Verified 09/17/22 11:38 lorazepam AdvReac Unknown increased Verified 09/17/22 11:38 anxiety & anger Home Medications Medication Instructions Recorded Confirmed Last Taken Type atomoxetine 100 mg capsule 100 mg PO DAILY 08/27/21 09/17/22 12/10/21 History clonazepam 0.5 mg tablet 0.25 mg PO DAILY PRN 09/02/22 09/17/22 Unknown History omega 0-keu-vzy-fish oil 1,000 mg 1 cap PO DAILY 09/02/22 09/17/22 Unknown History (120 mg-180 mg) capsule (Fish Oil) quetiapine 25 mg tablet 25 mg PO BID 09/02/22 09/17/22 Unknown History Exam Exam Date and Time: October 20, 2022 0815 Height,Weight and Vital Signs: Vital Signs Temperature 98.2 F 10/20/22 07:43 Pulse Rate 87 10/20/22 07:43 Respiratory Rate 18 10/20/22 07:43 Blood Pressure 126/73 10/20/22 07:43 Pulse Oximetry 97 10/20/22 07:43 Oxygen Delivery Method Room Air 10/20/22 07:43 Temperature 98.2 F 10/20/22 07:43 Pulse Rate 87 10/20/22 07:43 Respiratory Rate 18 10/20/22 07:43 Blood Pressure 126/73 10/20/22 07:43 Pulse Oximetry 97 10/20/22 07:43 Oxygen Delivery Method Room Air 10/20/22 07:43 Height 5 ft 2 in Weight 69.853 kg Airway Mallampati Class: I TM Dist: >3cm Neck ROM: Full Loose/Missing/Broken Teeth: No Heart: S1S2 Lungs: CTAB Assessment and Plan Assessment Anesthesia Assessment: Anesthesia Plan Discussed and Chart Reviewed Final Anesthetic Review Family History of Problems with Anesthesia: No History of Problems with Anesthesia: No NPO: Yes ASA Class: II Final Preanesthetic Review: No Changes in Pt Med Stat, Meds/Allgs Chart Reviewed, Consent Obtained/Reviewed and Anes Risks/Benef Reviewed Patient Risk: Low Procedure Risk: Low Anesthetic Plan Anesthetic Plan: GA and Agree w/ Assess. and Plan Disposition: Standard PACU
[2022-10-20 08:26] LABS: Anion Gap 13 (12-20); Blood Urea Nitrogen 17 mg/dL (9-16); Calcium 8.7 mg/dL (8.4-10.2); Carbon Dioxide 26 mmol/L (22-29); Chloride 109 mmol/L (96-108); Creatinine Clr Calc Pharmacy 86.6; Estimated Glomerular Filt Rate > 60; Glucose Fasting 92 mg/dL (60-99); Potassium 4.1 mmol/L (3.3-5.1); Sodium 144 mmol/L (135-145)
--- NOTE | 2022-10-20 09:23 | W.PM.OPN ---
Operative Note Operative Note Date of Service: 10/20/22 Narrative: Preop diagnosis: Hemorrhoids with pain and discomfort Postop exam diagnosis: Internal and external hemorrhoids with pain and discomfort Procedure: Exam under anesthesia,hemorrhoidectomy x2 columns Surgeon: Robbie Rai MD The patient is a 61 year old female with a long history of pain and discomfort with her hemorrhoids. She wanted to proceed with hemorrhoidectomy. She understood the technique of hemorrhoidectomy. She was aware of the risks, benefits, and alternatives. She was brought to the operating room. She was placed in prone best-knife position under general anesthesia via endotracheal tube. The buttocks were retracted with wide tape laterally. The perianal area was prepped and draped in the usual sterile fashion. A surgical time-out was done. The patient received Cefotan 2 g IV preoperatively Examination of the anal orifice revealed scattered discoloration with hyper pigmentation of the skin. There were external hemorrhoids on the right anterior at the left lateral areas . I inserted the Fortino Hapr retractor and examined the anal canal circumferentially. These hemorrhoidal columns were seen and were a mix of internal external. There were no lesions. There was no fissure. There were no ulcers in the anal canal. I applied a Patino grasper on the hemorrhoidal column on the right anterior. I made a figure of 8 stitch at its pedicle just proximal to the dentate line using a chromic 3-0. I made an incision around this hemorrhoidal column to the perianal skin using blade 15. I included hyperpigmented skin with the specimen. I excised this hemorrhoidal column above the plane of the sphincters using scissors. I closed the incision with a running chromic 3-0 stitch. I placed additional hemostatic [id number] sutures for oozing areas. I proceeded to repeat this procedure on the hemorrhoidal column on the left. This was retracted with Patino graspers. I excise this about the plane sphincters using blade 15. And scissors. The incision was closed with a running chromic 3-0 stitch with additional hemostatic sutures being placed. I then observed for hemostasis. Once hemostasis was confirmed, I proceeded to then position a rolled Gelfoam into the anal canal for additional postop hemostasis. I infiltrated the perianal area with Marcaine 0.5% for postop analgesia. The procedures was then completed. The patient tolerated the procedure well. There were no immediate complications. Initial and final counts of sponges and instruments were correct. Estimated blood loss about 20 cc. The patient was extubated without difficulty and transferred to the recovery room with stable vital signs.
[2022-10-20] MEDS: Acetaminophen 325 MG TABLET 650 MG PO (10:01)
[2022-10-20] MEDS: oxyCODONE HCl Immed Release 5 MG TABLET PO (10:01)
== END 2022-10-20 10:47 | disposition home or self-care (01) ==
PROVIDERS: Nurse Practitioner; PCP Internal Medicine; Visit Provider Surgery
PROC: (CPT 46260; principal; 2022-10-20 08:30)
DX: K64.8 Other hemorrhoids (principal); K64.4 Residual hemorrhoidal skin tags; E78.5 Hyperlipidemia, unspecified; F90.9 Attention-deficit hyperactivity disorder, unspecified type; F33.9 Major depressive disorder, recurrent, unspecified; F41.1 Generalized anxiety disorder; R44.0 Auditory hallucinations; L30.4 Erythema intertrigo; L23.1 Allergic contact dermatitis due to adhesives; Z79.899 Other long term (current) drug therapy; Z88.8 Allergy status to other drugs, medicaments and biological substances; F17.210 Nicotine dependence, cigarettes, uncomplicated
CPT/HCPCS: 46260; 36415; 80048; 88304; J0330; J2250; J2795; J3010

== ENCOUNTER → 2022-11-02 14:17 | Outpatient (BNVA) | payer OTHER, SELFPAY | PROVIDERS: PCP Internal Medicine; Visit Provider Surgery | DX: Z48.815 Encounter for surgical aftercare following surgery on the digestive system (principal); Z87.19 Personal history of other diseases of the digestive system | CPT/HCPCS: 99212 ==

== ENCOUNTER 2022-12-17 10:48 | Outpatient (AMB) | payer OTHER, SELFPAY ==
--- NOTE | 2022-12-17 10:49 | A.OFFVIS_ITS ---
Intake Vital Signs 12/17/22 10:53 BP 134/76 Blood Pressure Location Rt brachial Position Sitting Pulse 92 Intake Visit Reasons: 1 mth follow up hemorrhoidectomy Intake Note: This patient presents for a one month follow-up assessment status post hemorrhoidectomy. Patient denies complaints at this time. 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 She says she feels well and denies any significant complaints. She is happy with the outcome. [facility] Medical History ADHD Anxiety Auditory hallucinations COVID-19 vaccination declined Depression, major, recurrent Dyslipidemia Erythema intertrigo Hemorrhoid thrombosis Hemorrhoids with complication Refused influenza vaccine Surgical History H/O oophorectomy History of excision of epidermal inclusion cyst (10/24/21) History of hemorrhoidectomy Family History Father Substance use disorder Mother Lung cancer Substance use disorder Maternal Grandmother Diabetes mellitus Brother Lung cancer Substance use disorder Mental health disorder Brother Substance use disorder Brother Substance use disorder Brother Substance use disorder Brother Substance use disorder Sister Substance use disorder Mental health disorder Son No problems noted. Social History Housing: Condominium Alcohol intake: current Alcohol intake frequency: holidays/special occasions only Patient Tobacco Use Status: Current everyday Tobacco user Tobacco use type: Cigarette Cigarette Packs Per Day: 0.5 Cigarettes Per Day: 10.0 e-Cigarette/Vaping Use: Never Used Second Hand Smoke Exposure: No service: No Current occupational status: unemployed Cognitive needs: No Hearing needs: No Vision needs: No Female Reproductive History Menstrual Age of Menarche: 16 Review of Systems Const Denies chills and Denies fever(s) GI Denies abdominal pain and Denies hematochezia Physical Exam Vital Signs: Last Vital Signs Pulse 92 12/17/22 10:53 BP 134/76 12/17/22 10:53 Const General: comfortable and no acute distress GI Other: Rectal exam shows the hemorrhoidectomy sites to be well healed, nontender, non indurated, no discharge Assessment & Plan Assessment & Plan (1) Hemorrhoids with complication: Code(s): K64.8 - Other hemorrhoids Plan: Status post hemorrhoidectomy. Her hemorrhoidectomy sites are well healed. She feels well and is happy with the outcome. She can therefore follow up on a p.r.n. basis. Coding Level of Care Code Global (48219) Diagnoses Hemorrhoids with complication K64.8
[2022-12-17 10:53] VITALS: BP 134/76; PULSE 92
== END 2022-12-17 10:58 | disposition home or self-care (01) ==
PROVIDERS: PCP Internal Medicine; Visit Provider Surgery
DX: K64.8 Other hemorrhoids (principal)
CPT/HCPCS: 99024

== ENCOUNTER → 2022-12-17 10:48 | Outpatient (BNVA) | payer OTHER, SELFPAY | PROVIDERS: PCP Internal Medicine; Visit Provider Surgery ==

== ENCOUNTER 2023-03-08 08:17 | Outpatient (AMB) | payer OTHER, SELFPAY ==
--- NOTE | 2023-03-08 08:29 | A.OFFPC_ITS ---
Vital Signs 03/08/23 08:30 Height 5 ft 2 in Weight 164 lb BMI 30.0 BP 132/86 Blood Pressure Location Rt brachial Position Sitting Pulse 81 Pulse Source Pulse Oximeter Temp 98.2 F Temp Source Oral Pulse Oximetry (%) 98 Oxygen Delivery Method Room Air Intake Visit Reasons: ?Sinus Infection (masked) Intake Note: Pt is here today c/o Rt side of sinus area pain x2days Allergies adhesive tape Allergy (Intermediate, Verified 07/13/23 10:55) Blister egg Allergy (Unknown, Verified 07/13/23 10:55) Nausea lorazepam Adverse Reaction (Unknown, Verified 07/13/23 10:55) increased anxiety & anger Medication List - Last Reconciled 03/08/23 by Leda Al MD albuterol sulfate 90 mcg/actuation (ProAir HFA) 2 puffs inhalation Q4-6H PRN cariprazine (Vraylar) 1.5 mg PO DAILY clonazepam 0.25 mg PO DAILY PRN doxepin 10 mg PO BEDTIME mupirocin 2% 1 appl topical BID 5 days nystatin 1 appl topical BID PRN Tobacco use date assessed: 03/08/23 Dental Screening Dental Screen Date: 03/08/23 Did you have a dental visit in the last 12 months?: Yes Did you have a dental problem in the last 6 months where you did not have access to dental care?: No Was dental information given to patient?: Patient has dentist HPI ?Sinus Infection (masked) HPI Details 63-year-old lady here today complaining of frontal headache and facial pain , nasal congestion and nasal discharge consisting of purulent yellow-green fluid, present for the last 2-3 days. Denies any accompanying fever but complains of generalized fatigue and malaise has been taking [id number] cough and cold medication which has not afforded any relief. [facility] Medical History (Updated 07/13/23 @ 14:42 by Leda Al MD) Generalized anxiety disorder Cigarette smoker motivated to quit Hidradenitis suppurativa of multiple sites Hx of major depression Cough due to bronchospasm No vaccination-pt refuse Hemorrhoids with complication Erythema intertrigo Hemorrhoid thrombosis ADHD Depression, major, recurrent COVID-19 vaccination declined Dyslipidemia Refused influenza vaccine Auditory hallucinations Surgical History History of hemorrhoidectomy History of excision of epidermal inclusion cyst (10/24/21) H/O oophorectomy Family History Father Substance use disorder Mother Lung cancer Substance use disorder Maternal Grandmother Diabetes mellitus Brother Lung cancer Substance use disorder Mental health disorder Brother Substance use disorder Brother Substance use disorder Brother Substance use disorder Brother Substance use disorder Sister Substance use disorder Mental health disorder Son No problems noted. Social History Housing: Condominium Alcohol intake: current Alcohol intake frequency: holidays/special occasions only Patient Tobacco Use Status: Current everyday Tobacco user Tobacco use type: Cigarette Cigarette Packs Per Day: 0.5 Cigarettes Per Day: 7 e-Cigarette/Vaping Use: Never Used Second Hand Smoke Exposure: No service: No Current occupational status: unemployed Cognitive needs: No Hearing needs: No Vision needs: No Female Reproductive History Menstrual Age of Menarche: 16 Questionnaire Thrive Questionnaire Date Thrive assessed: 09/02/22 ARCELIA-7 AMB Questionnaire ARCELIA-7 Date ARCELIA - 7 assessed: 09/02/22 Source: Developed by Drs. Bahman Titus, Gena Martinez, Sergio Ching and colleagues, with an educational radha from [employer]. Review of Systems Const All systems reviewed & are unremarkable except as noted in HPI and below Physical exam (Primary Care) Vital Signs: Last Vital Signs Temp 98.2 F 03/08/23 08:30 Pulse 81 03/08/23 08:30 BP 132/86 03/08/23 08:30 Pulse Ox 98 03/08/23 08:30 Oxygen Delivery Method Room Air 03/08/23 08:30 BMI result Body Mass Index 30.0 Tobacco/Smoking Status: Tobacco use Status Tobacco use date assessed 03/08/23 03/08/23 08:36 Patient Tobacco Use Status Current everyday Tobacco 03/08/23 08:36 Tobacco use type Cigarette 03/08/23 08:36 e-Cigarette/Vaping Use Never Used 03/08/23 08:36 Are you ready to quit: No Thrive Assessment: Date of Thrive Assessment Date Thrive assessed 09/02/22 03/08/23 08:36 Const Other: Alert oriented x3, no acute distress noted, normal gait Orientation/consciousness: patient oriented x3 HENMT Head: Yes normocephalic Ears: hearing grossly normal bilaterally, TM's normal bilaterally and EAC's normal General nose exam: Abnormal mucous membranes and turbinates present erythematous Face and sinus: Yes face symmetric and Yes sinus tenderness (left maxillary) Mouth: Normal oral and palatal mucosa present and moist mucous membranes Eyes General: appearance normal, both eyes and all related structures Neck Neck: Yes full ROM, Yes no lymphadenopathy and Yes supple Resp Auscultation: clear to auscultation bilaterally Cardio Rate: regular rate Rhythm: regular rhythm Heart sounds: S1 normal heart sound present and S2 normal heart sound present Skin Other: hyper pigmentation noted under both breasts and axillary area Neuro General: patient oriented x3, gait normal, moves all extremities, Normal light touch and pain sensation, no focal motor deficits and CN's II-XI intact bilaterally Assessment and Plan Assessment & Plan (1) Acute sinusitis: Code(s): J01.90 - Acute sinusitis, unspecified (2) Fatigue: Code(s): R53.83 - Other fatigue Qualifiers: Fatigue type: chronic, unspecified Qualified Code(s): R53.82 - Chronic fatigue, unspecified (3) No vaccination-pt refuse: Code(s): Z28.21 - Immunization not carried out because of patient refusal Plan Prescription sent for amoxicillin 875 mg per tablet to take 1 every 12 hours for 10 days. Labs ordered to check CBC with differential, B12 folate level vitamin- D level and TSH with reflex free T4 with results still pending Orders: Orders Complete Blood Count Auto Diff 03/08/23 R53.83 - Other fatigue, E55.9 - Vitamin D deficiency, unspecified, Z78.0 - Asymptomatic menopausal state Vitamin B12 and Folate 03/08/23 R53.83 - Other fatigue, E55.9 - Vitamin D deficiency, unspecified, Z78.0 - Asymptomatic menopausal state Vitamin D 25-OH Total 03/08/23 R53.83 - Other fatigue, E55.9 - Vitamin D deficiency, unspecified, Z78.0 - Asymptomatic menopausal state TSH reflex Free T4 03/08/23 R53.83 - Other fatigue, E55.9 - Vitamin D deficiency, unspecified, Z78.0 - Asymptomatic menopausal state Medications: New amoxicillin 875 mg PO Q12H 20 tabs 0RF Coding Level of Care Code Est Pt Level 3 (79364) Diagnoses Acute sinusitis J01.90 Chronic fatigue R53.82 Fatigue type: chronic, unspecified No vaccination-pt refuse Z28.21
[2023-03-08 08:30] VITALS: BP 132/86; PULSE 81; TEMP 36.8; O2SAT 98
== END 2023-03-08 09:34 | disposition home or self-care (01) ==
LOC: HO.HMGC 08:17
PROVIDERS: PCP Internal Medicine; Visit Provider Internal Medicine
DX: J01.90 Acute sinusitis, unspecified (principal); R53.82 Chronic fatigue, unspecified; Z28.21 Immunization not carried out because of patient refusal
CPT/HCPCS: 99499

== ENCOUNTER 2023-03-08 08:51 | Outpatient (REF) | payer OTHER, SELFPAY ==
[2023-03-08 10:54] LABS: MANUAL DIFF FLAG NO
[2023-03-08 11:05] LABS: Basophils Absolute Auto 0.1 X10*3/uL (0.0-0.2); Basophils Percent Auto 1.3 % (0-2); Eosinophils Absolute Auto 0.3 X10*3/uL (0.0-0.4); Eosinophils Percent Auto 3.1 % (0-4); Hematocrit 42.8 % (37.0-47.0); Hemoglobin 14.3 g/dl (12.0-16.0); Imm Gran Abs Auto 0.03 X10*3/uL (0.00-0.03); Imm Gran Pct Auto 0.4 % (0.0-0.4); Lymphocytes Absolute Auto 2.5 X10*3/uL (1.2-4.9); Lymphocytes Percent Auto 31.3 % (20-40); Mean Corpuscular HGB Conc 33.4 g/dl (31.0-35.0); Mean Corpuscular Hemoglobin 29.7 pg (27.0-33.0); Mean Platelet Volume 10.6 fL (9.4-12.3); Monocytes Absolute Auto 0.6 X10*3/uL (0.1-1.2); Monocytes Percent Auto 7.3 % (2-11); Neutrophils Absolute Auto 4.5 x10*3/uL (2.0-8.3); Neutrophils Percent Auto 56.6 % (45-73); Platelet Count 311 X10*3/uL (160-400); Red Blood Count 4.81 X10*6/uL (4.20-5.50); Red Cell Distribution Width 13.4 % (11.0-16.0)
== END 2023-03-08 08:52 | disposition home or self-care (01) ==
LOC: HO.HMGCLDS 08:51
PROVIDERS: PCP Internal Medicine; Visit Provider Internal Medicine
DX: R53.83 Other fatigue (principal); E55.9 Vitamin D deficiency, unspecified; Z78.0 Asymptomatic menopausal state
CPT/HCPCS: 36415; 82306; 82607; 82746; 84443; 85025

== ENCOUNTER 2023-04-19 16:00 | Outpatient (AMB) | payer OTHER, SELFPAY ==
--- NOTE | 2023-04-19 16:29 | AM.OFFWIN_ITS ---
Intake Vital Signs 04/19/23 16:30 Height 5 ft 2 in Weight 165 lb BMI 30.2 BP 124/70 Blood Pressure Location Rt brachial Position Sitting Pulse 87 Pulse Source Pulse Oximeter Temp 98.2 F Temp Source Temporal Artery Scan Pulse Oximetry (%) 97 Intake Visit Reasons: EP, cough, congestion (masked) Intake Note: pt is here for c/o cough, congestion Patient Tobacco Use Status: Current everyday Tobacco user Allergies adhesive tape Allergy (Intermediate, Verified 04/22/23 16:48) Blister egg Allergy (Unknown, Verified 04/22/23 16:48) Nausea lorazepam Adverse Reaction (Unknown, Verified 04/22/23 16:48) increased anxiety & anger Do you need a note to return to daycare/school/sports/work: Yes HPI EP, cough, congestion (masked) HPI Details 62-year-old female presents to [facility] for a sick visit. Reporting symptoms of sinus congestion, sore throat and difficulty swallowing. Low-grade fever. No family member is sick. No recent travel. Patient reports symptoms of malaise and fatigue. [facility] Medical History No vaccination-pt refuse Hemorrhoids with complication Erythema intertrigo Hemorrhoid thrombosis Anxiety ADHD Depression, major, recurrent COVID-19 vaccination declined Dyslipidemia Refused influenza vaccine Auditory hallucinations Surgical History History of hemorrhoidectomy History of excision of epidermal inclusion cyst (10/24/21) H/O oophorectomy Family History Father Substance use disorder Mother Lung cancer Substance use disorder Maternal Grandmother Diabetes mellitus Brother Lung cancer Substance use disorder Mental health disorder Brother Substance use disorder Brother Substance use disorder Brother Substance use disorder Brother Substance use disorder Sister Substance use disorder Mental health disorder Son No problems noted. Housing: Condominium Alcohol intake: current Alcohol intake frequency: holidays/special occasions only Patient Tobacco Use Status: Current everyday Tobacco user Tobacco use type: Cigarette Cigarette Packs Per Day: 0.5 Cigarettes Per Day: 10.0 e-Cigarette/Vaping Use: Never Used Second Hand Smoke Exposure: No service: No Current occupational status: unemployed Cognitive needs: No Hearing needs: No Vision needs: No Female Reproductive History Menstrual Age of Menarche: 16 Physical Exam Vital Signs: Last Vital Signs Temp 98.2 F 04/19/23 16:30 Pulse 87 04/19/23 16:30 BP 124/70 04/19/23 16:30 Pulse Ox 97 04/19/23 16:30 BMI result Body Mass Index 30.2 Const General: cooperative and healthy appearing Nutritional Appearance: well nourished Orientation/consciousness: patient oriented x3 Limitations: no limitations HEENT Head: Yes normal to inspection Eyes General: appearance normal, both eyes and all related structures Neck Neck: Yes normal visual inspection Chest Chest palpation & inspection: normal palpation of entire chest wall Resp Effort & Inspection: normal respiratory effort Neuro General: patient oriented x3 Assessment & Plan Assessment & Plan (1) Upper respiratory tract infection: Code(s): J06.9 - Acute upper respiratory infection, unspecified Plan: Antibiotics ordered. Increase fluid intake. Tylenol for aches and pains. If symptoms worsen, follow-up here for a recheck. Medications: New azithromycin take 500 mg today (day 1), then 250 mg for 4 days (days 2-5) PO 6 tabs 0RF prednisone 60 mg (3 x 20 mg) PO DAILY 9 tabs 0RF Coding Level of Care Code Est Pt Level 3 (85753) Diagnoses Upper respiratory tract infection J06.9
[2023-04-19 16:30] VITALS: BP 124/70; PULSE 87; TEMP 36.8; O2SAT 97; BMI 30.2
== END 2023-04-20 11:26 | disposition home or self-care (01) ==
PROVIDERS: PCP Internal Medicine; Visit Provider Internal Medicine
DX: J06.9 Acute upper respiratory infection, unspecified (principal)
CPT/HCPCS: 99213

== ENCOUNTER 2023-04-29 14:39 | Outpatient (AMB) | payer OTHER, SELFPAY ==
--- NOTE | 2023-04-29 14:43 | A.OFFPC_ITS ---
<Statement entered by Leda Al MD - 07/01/25 23:43> This note has been administratively?closed. Vital Signs 04/29/23 14:45 Height 5 ft 2 in Weight 165 lb BMI 30.2 BP 110/70 Blood Pressure Location Rt brachial Position Sitting Pulse 124 H Pulse Source Pulse Oximeter Pulse Oximetry (%) 95 Oxygen Delivery Method Room Air Intake Visit Reasons: Leg weakness Intake Note: Pt is here for leg weakness and Sob pt was seen for a sinus infection and felt better and pt says she now that she stopped the antibiotics and steroids she has Sob and leg weakness and she thinks it may be her psych meds her psych MD told her to see her PCP Allergies adhesive tape Allergy (Intermediate, Verified 06/27/25 13:29) Blister egg Allergy (Mild, Verified 06/27/25 13:29) Nausea lorazepam Adverse Reaction (Intermediate, Verified 06/27/25 13:29) increased anxiety & anger Tobacco use date assessed: 04/29/23 Dental Screening Did you have a dental visit in the last 12 months?: Yes Did you have a dental problem in the last 6 months where you did not have access to dental care?: No Was dental information given to patient?: Patient has dentist [facility] Medical History Costochondritis Depression Nicotine dependence, cigarettes, uncomplicated Mixed urge and stress incontinence Generalized anxiety disorder Hidradenitis suppurativa of multiple sites ADHD Dyslipidemia Surgical History History of excision of epidermal inclusion cyst (12/25/24) Hx of excision of epidermal inclusion cyst (09/19/24) History of excision of epidermal inclusion cyst (07/24/24) H/O Spinal surgery History of hemorrhoidectomy History of excision of epidermal inclusion cyst (10/24/21) H/O oophorectomy Family History Father Substance use disorder Mother Lung cancer Substance use disorder Maternal Grandmother Diabetes mellitus Brother Lung cancer Substance use disorder Mental health disorder Brother Substance use disorder Brother Substance use disorder Brother Substance use disorder Brother Substance use disorder Sister Substance use disorder Mental health disorder Son No problems noted. Social History Housing: Condominium Are you a primary wound care coordinator to a significant other at home: No Do you presently have visiting nurse or other home services: No Alcohol intake: current Alcohol intake frequency: does not drink Patient Tobacco Use Status: Current everyday Tobacco user Tobacco use type: Cigarette Cigarette Packs Per Day: 0.5 Cigarettes Per Day: 7 e-Cigarette/Vaping Use: Never Used Second Hand Smoke Exposure: No service: No Current occupational status: unemployed Cognitive needs: No Hearing needs: No Vision needs: No Female Reproductive History Menstrual Age of Menarche: 16 Questionnaire Thrive Questionnaire Date Thrive assessed: 09/02/22 ARCELIA-7 AMB Questionnaire ARCELIA-7 Date ARCELIA - 7 assessed: 09/02/22 Source: Developed by Drs. Bahman Titus, Gena Martinez, Sergio Ching and colleagues, with an educational radha from [employer]. Physical exam (Primary Care) Vital Signs: Last Vital Signs Pulse 124 H 04/29/23 14:45 BP 110/70 04/29/23 14:45 Pulse Ox 95 04/29/23 14:45 Oxygen Delivery Method Room Air 04/29/23 14:45 BMI result Body Mass Index 30.2 Tobacco/Smoking Status: Tobacco use Status Tobacco use date assessed 04/29/23 04/29/23 14:58 Patient Tobacco Use Status Current everyday Tobacco 04/29/23 14:44 Tobacco use type Cigarette 04/29/23 14:44 e-Cigarette/Vaping Use Never Used 04/29/23 14:44 Thrive Assessment: Date of Thrive Assessment Date Thrive assessed 09/02/22 04/29/23 14:44 Coding Level of Care Code Admin Sign Off/No Billing Diagnoses Palpitations R00.2
[2023-04-29 14:45] VITALS: BP 110/70; PULSE 124; O2SAT 95; BMI 30.2
== END 2023-04-29 15:50 | disposition home or self-care (01) ==
PROVIDERS: PCP Internal Medicine; Visit Provider Internal Medicine
DX: R00.2 Palpitations (principal)
CPT/HCPCS: 99499

== ENCOUNTER 2023-07-13 10:41 | Outpatient (AMB) | payer OTHER, SELFPAY ==
--- NOTE | 2023-07-13 10:41 | MHC.PC.OV ---
Intake Visit Reasons: f/u smoking cessation I phone [phone] Allergies adhesive tape Allergy (Intermediate, Verified 07/13/23 10:55) Blister egg Allergy (Unknown, Verified 07/13/23 10:55) Nausea lorazepam Adverse Reaction (Unknown, Verified 07/13/23 10:55) increased anxiety & anger Medication List - Last Reconciled 07/13/23 by Leda Al MD albuterol sulfate 90 mcg/actuation (ProAir HFA) 2 puffs inhalation Q4-6H PRN clonazepam 0.25 mg PO DAILY PRN fluticasone propionate 110 mcg/actuation (Flovent HFA) 1 puff inhalation Q12H hydrocortisone-pramoxine 1-1 % 1 appl SD QID PRN mupirocin 2% 1 appl topical BID 5 days nicotine 1 patch transdermal DAILY nystatin 1 appl topical BID PRN Tobacco use date assessed: 07/13/23 Dental Screening Dental Screen Date: 07/13/23 Did you have a dental visit in the last 12 months?: Yes Did you have a dental problem in the last 6 months where you did not have access to dental care?: No Was dental information given to patient?: Patient has dentist HPI f/u smoking cessation I phone [phone] HPI Details Tele Health visit made with 8-year-old lady here today for follow-up regarding smoking cessation. Started on nicotine patch 28 mg per patch 4 weeks ago. Patient states that it has been cutting her cravings for nicotine but there are times that she still lytes of a cigarette every now and then, does not finish to stick. She states that she has cut down to about 3-4 cigarettes a day and removes the patch when she smokes. Has not had any adverse effects from it. Would like to continue. She just needs something to occupy her mouth with not smoking. She also has been noticing recurrences of raced nodular mass appearing in her armpits, groin area which has started to become a little painful. No active drainage, no fever, reported [facility] Medical History (Updated 07/13/23 @ 14:42 by Leda Al MD) Generalized anxiety disorder Cigarette smoker motivated to quit Hidradenitis suppurativa of multiple sites Hx of major depression Cough due to bronchospasm No vaccination-pt refuse Hemorrhoids with complication Erythema intertrigo Hemorrhoid thrombosis ADHD Depression, major, recurrent COVID-19 vaccination declined Dyslipidemia Refused influenza vaccine Auditory hallucinations Surgical History History of hemorrhoidectomy History of excision of epidermal inclusion cyst (10/24/21) H/O oophorectomy Family History Father Substance use disorder Mother Lung cancer Substance use disorder Maternal Grandmother Diabetes mellitus Brother Lung cancer Substance use disorder Mental health disorder Brother Substance use disorder Brother Substance use disorder Brother Substance use disorder Brother Substance use disorder Sister Substance use disorder Mental health disorder Son No problems noted. Social History Housing: Condominium Alcohol intake: current Alcohol intake frequency: holidays/special occasions only Patient Tobacco Use Status: Current everyday Tobacco user Tobacco use type: Cigarette Cigarette Packs Per Day: 0.5 Cigarettes Per Day: 7 e-Cigarette/Vaping Use: Never Used Second Hand Smoke Exposure: No service: No Current occupational status: unemployed Cognitive needs: No Hearing needs: No Vision needs: No Female Reproductive History Menstrual Age of Menarche: 16 Questionnaire PHQ-9 Over the last 2 weeks, how often have you been bothered by any of the following problems? 1. Little interest or pleasure in doing things: several days 2. Feeling down, depressed, or hopeless: several days 3. Trouble falling or staying asleep, or sleeping too much: not at all 4. Feeling tired or having little energy: not at all 5. Poor appetite or overeating: not at all 6. Feeling bad about yourself - or that you are a failure or have let yourself or your family down: not at all 7. Trouble concentrating on things, such as reading the newspaper or watching television: not at all 8. Moving or speaking so slowly that other people could have noticed. Or the opposite - being so fidgety or restless that you have been moving around a lot more than usual: not at all 9. Thoughts that you would be better off or of hurting yourself in some way: not at all Total score: 2 Depression Screening Interpretation: Positive (Currently followed by Suzan Whitehead, patient however stop taking her medications as it was just make her more depressed) Depression Screening Follow-up: Existing condition, In treatment and Community Mental Health Worker F/U Depression Screening Done: Yes Source: Developed by Drs. Bahman Titus, Sergio Devi and colleagues, with an educational radha from [employer]. Thrive Questionnaire Date Thrive assessed: 07/13/23 I am a: Patient What is your living situation today?: I have a steady place to live Within the past 12 months, did the food you bought not last and you didn't have the money to get more?: Never true Within the past 12 months, did you worry whether your food would run out before you got money to buy more?: Never true Do you have trouble paying for medicines?: No Do you have trouble getting transportation to medical appointments?: No Do you have trouble paying your heating and electricity bill?: No Do you have trouble taking care of your child, family member or friend?: No Do you have trouble with day-to-day activities such as bathing, preparing meals, shopping, managing finances, etc.?: No Are you currently unemployed and looking for a job?: No Are you interested in more education?: No THRIVE Score: 0 AUDIT C Alcohol Use Questionnaire (AUDIT-C) 1. How often do you have a drink containing alcohol?: Never Total Score: 0 ARCELIA-7 AMB Questionnaire ARCELIA-7 Date ARCELIA - 7 assessed: 09/02/22 Feeling nervous, anxious, or on edge: 1 = Several days Not being able to stop or control worryin = Several days Worrying too much about different things: 0 = Not at all Trouble relaxin = Several days Being so restless that it is hard to sit still: 1 = Several days Becoming easily annoyed or irritable: 3 = Nearly every day Feeling afraid as if something awful might happen: 1 = Several days Total ARCELIA-7 score (0-4 normal; 5-9 mild; 10-14 moderate; 15-21 severe): 8 Source: Developed by Drs. Bahman Titus, Gena Martinez, Sergio Ching and colleagues, with an educational radha from [employer]. ARCELIA-7 Assessment Billing ARCELIA-7 Assessment Tool: ARCELIA-7 Assessment 48525 Review of Systems Const Denies body aches, Denies chills, Denies fatigue, Denies fever(s), Denies headache(s) and Denies poor appetite ENT Reports no additional complaints and Denies headache(s) Card Denies chest pain, Denies chest pain with activity, Denies rapid heart rate, Denies pedal edema and Denies dyspnea Resp Denies cough and Denies dyspnea GI Reports no additional complaints Musc Reports as per HPI Neuro Denies headache(s) Endo Denies fatigue Physical exam (Primary Care) Tobacco/Smoking Status: Tobacco use Status Tobacco use date assessed 07/13/23 07/13/23 10:46 Patient Tobacco Use Status Current everyday Tobacco 07/13/23 10:46 Tobacco use type Cigarette 07/13/23 10:46 e-Cigarette/Vaping Use Never Used 07/13/23 10:46 PHQ-9: PHQ-9 Score PHQ-9: Total score 2 07/13/23 10:54 Depression Screening Interpretation: Positive (Currently followed by Suzan Whitehead, patient however stop taking her medications as it was just make her more depressed) Depression Screening Follow-up: Existing condition, In treatment and Community Mental Health Worker F/U Thrive Assessment: Date of Thrive Assessment Date Thrive assessed 07/13/23 07/13/23 10:46 Telehealth Telehealth Location of provider rendering services: practice address Location of patient: address on file Patient Identification confirmed using: Name, : Yes Telehealth method: video Patient verbally consented to treatment: Yes Patient verbally consented to billing insurance company: Yes Patient informed of any privacy concerns related to visit: Yes Minutes spent on Phone/Video with Pt.: 15 Assessment and Plan Assessment & Plan (1) Hidradenitis suppurativa of multiple sites: Code(s): L73.2 - Hidradenitis suppurativa Plan: Prescription sent for cephalexin 500 mg per capsule to take 1 every 8 hours for 10 days if symptoms persists ordered lesions do not improve, will refer to surgery for further evaluation refill prescription sent for mupirocin 2% nasal ointment use as directed (2) Cigarette smoker motivated to quit: Code(s): F17.210 - Nicotine dependence, cigarettes, uncomplicated Plan: Patient motivated to quit, will continue on same dose of nicotine patch 21 mg/patch , and again reminded patient that she cannot smoke when using the patch. Remind patient to take patch off at night before sleeping. Continue cutting back on her use of cigarettes, try BP monitor cook occupied by chewing nuts, celery sticks, carrot sticks. See her back for follow-up in 4 weeks Medications: New cephalexin 500 mg PO Q8H 10 days 30 caps 0RF Refilled mupirocin 2% 1 appl topical BID 5 days 22 grams 1RF nicotine 1 patch transdermal DAILY 28 ea 0RF Coding Level of Care Code Tele Est Pt Level 3 (19548) Diagnoses Hidradenitis suppurativa of multiple sites L73.2 Cigarette smoker motivated to quit F17.210 Additional Codes ARCELIA-7 Assessment Billing - ARCELIA-7 Assessment Tool: ARCELIA-7 Assessment 70417 ([id number])
== END 2023-07-13 11:09 | disposition home or self-care (01) ==
LOC: HO.HMGC 10:41
PROVIDERS: PCP Internal Medicine; Visit Provider Internal Medicine
DX: L73.2 Hidradenitis suppurativa (principal); F17.210 Nicotine dependence, cigarettes, uncomplicated
CPT/HCPCS: 99213

== ENCOUNTER 2023-09-10 13:39 | Outpatient (REF) | payer OTHER, SELFPAY ==
--- NOTE | ~2023-09-10 | CT_ITS ---
EXAMINATION: CT LUNG SCREENING CLINICAL INFORMATION: Nicotine dependence. Quit smoking one year ago. Smoked one pack of cigarettes per day for 46 years. COMPARISON: CT lung screening 09/03/2022. TECHNIQUE: Multidetector volumetric CT imaging of the chest is performed without contrast using low dose technique. Additional 2D coronal and sagittal reformatted images and axial 3D maximum intensity projection (MIP) images are generated on the CT workstation. This CT examination was performed using dose optimization techniques as appropriate, variously including the following: *Automated exposure control *Adjustment of mA and/or kV according to patient size (this includes techniques or standardized protocols for targeted exams where dose is matched to indication/reason for exam; i.e. extremities or head) *Use of iterative reconstruction technique DLP: 45 mGy-cm. FINDINGS: LUNGS: Some small pulmonary nodules are unchanged includin mm subpleural right upper lobe nodule (5:65 compare prior 5:54). 3 mm subpleural right upper lobe nodule (5:105 compare prior 5:103). Wilson images of all have been saved. Mild emphysematous changes and mild bronchial thickening are again noted. MEDIASTINUM: The mediastinum is normal. CORONARY ARTERY CALCIFICATION: None visualized on this study. PLEURA: There is no pleural effusion. No pleural mass or thickening. AXILLA: No lymphadenopathy. UPPER ABDOMEN: Benign hepatic cyst is seen. A water density benign right renal cyst is partially imaged, which needs no additional imaging or follow-up. Fat density small left adrenal nodule, unchanged, consistent with a benign adenoma. OSSEOUS STRUCTURES: Unremarkable. CT/CT lung screening IMPRESSION: No evidence of malignancy. Emphysema and some nonsuspicious lung nodules, unchanged. ASSESSMENT: Lung-RADS category 2: Benign. RECOMMENDATION: Routine annual low-dose CT screening in 12 months.
== END 2023-09-10 13:40 | disposition home or self-care (01) ==
LOC: HO.CT 13:39
PROVIDERS: PCP Internal Medicine; Visit Provider Nurse Practitioner Family
DX: Z12.2 Encounter for screening for malignant neoplasm of respiratory organs (principal); F17.210 Nicotine dependence, cigarettes, uncomplicated
CPT/HCPCS: 71271

== ENCOUNTER 2023-12-13 12:31 | Outpatient (AMB) | payer OTHER, SELFPAY ==
--- NOTE | 2023-12-13 12:49 | A.OFFPC_ITS ---
Vital Signs 12/13/23 12:50 Height 5 ft 2 in Weight 158 lb BMI 28.9 BP 110/70 Blood Pressure Location Lt brachial Position Sitting Pulse 93 Pulse Source Pulse Oximeter Pulse Oximetry (%) 96 Oxygen Delivery Method Room Air Intake Visit Reasons: PE Intake Note: Patient here for physical exam. pt would like to discuss the following issues: SOB,coughing ear wax, bladder issues and bowel issues and would like to talk about possibly getting on a antidepressant again. Allergies adhesive tape Allergy (Intermediate, Verified 12/13/23 13:15) Blister egg Allergy (Unknown, Verified 12/13/23 13:15) Nausea lorazepam Adverse Reaction (Unknown, Verified 12/13/23 13:15) increased anxiety & anger Medication List - Last Reconciled 12/13/23 by Leda Al MD albuterol sulfate 90 mcg/actuation (ProAir HFA) 2 puffs inhalation Q4-6H PRN ascorbate calcium (vitamin C) 500 mg PO DAILY clonazepam 0.25 mg PO DAILY PRN fluticasone propionate 110 mcg/actuation 1 puff inhalation Q12H hydrocortisone-pramoxine 1-1 % 1 appl NM QID PRN magnesium 200 mg PO DAILY mupirocin 2% 1 appl topical BID 5 days nicotine 1 patch transdermal DAILY nystatin 1 appl topical BID PRN Tobacco use date assessed: 07/13/23 Dental Screening Dental Screen Date: 07/13/23 HPI PE HPI Details 63-year-old lady here today for physical exam time. She is up-to-date with her screening for cervical cancer, last Pap smear was done in 2021 showed atrophic vaginal mucosa with no intraepithelial lesion or malignancy seen. She is overdue for her screening mammogram, last done in 2021. Last screening colonoscopy was done by Dr. Duffy in 2014 which showed only presence of hemorrhoids and diverticulosis, due again in 2024. She goes yearly for low-dose CT scan screening, recently done which showed no evidence of malignancy but did show emphysematous changes in both lung. [facility] Medical History (Updated 12/13/23 @ 13:37 by Leda Al MD) Mixed urge and stress incontinence Generalized anxiety disorder Cigarette smoker motivated to quit Hidradenitis suppurativa of multiple sites Hx of major depression Cough due to bronchospasm No vaccination-pt refuse Hemorrhoids with complication Erythema intertrigo Hemorrhoid thrombosis ADHD Depression, major, recurrent COVID-19 vaccination declined Dyslipidemia Refused influenza vaccine Auditory hallucinations Surgical History History of hemorrhoidectomy History of excision of epidermal inclusion cyst (10/24/21) H/O oophorectomy Family History Father Substance use disorder Mother Lung cancer Substance use disorder Maternal Grandmother Diabetes mellitus Brother Lung cancer Substance use disorder Mental health disorder Brother Substance use disorder Brother Substance use disorder Brother Substance use disorder Brother Substance use disorder Sister Substance use disorder Mental health disorder Son No problems noted. Social History Housing: Condominium Alcohol intake: current Alcohol intake frequency: holidays/special occasions only Patient Tobacco Use Status: Current everyday Tobacco user Tobacco use type: Cigarette Cigarette Packs Per Day: 0.5 Cigarettes Per Day: 7 e-Cigarette/Vaping Use: Never Used Second Hand Smoke Exposure: No service: No Current occupational status: unemployed Cognitive needs: No Hearing needs: No Vision needs: No Female Reproductive History Menstrual Age of Menarche: 16 Questionnaire PHQ-9 Over the last 2 weeks, how often have you been bothered by any of the following problems? 1. Little interest or pleasure in doing things: not at all 2. Feeling down, depressed, or hopeless: not at all 3. Trouble falling or staying asleep, or sleeping too much: several days 4. Feeling tired or having little energy: several days 5. Poor appetite or overeating: not at all 6. Feeling bad about yourself - or that you are a failure or have let yourself or your family down: not at all 7. Trouble concentrating on things, such as reading the newspaper or watching television: not at all 8. Moving or speaking so slowly that other people could have noticed. Or the opposite - being so fidgety or restless that you have been moving around a lot more than usual: not at all 9. Thoughts that you would be better off or of hurting yourself in some way: not at all Total score: 2 Depression Screening Interpretation: Negative Depression Screening Done: Yes 79626 - PHQ-9 Billing: Yes Source: Developed by Drs. Bahman Titus, Gena Martinez, Sergio Ching and colleagues, with an educational radha from [employer]. Thrive Questionnaire Date Thrive assessed: 07/13/23 I am a: Patient What is your living situation today?: I have a steady place to live Within the past 12 months, did the food you bought not last and you didn't have the money to get more?: Never true Within the past 12 months, did you worry whether your food would run out before you got money to buy more?: Never true Do you have trouble paying for medicines?: No Do you have trouble getting transportation to medical appointments?: No Do you have trouble paying your heating and electricity bill?: No Do you have trouble taking care of your child, family member or friend?: No Do you have trouble with day-to-day activities such as bathing, preparing meals, shopping, managing finances, etc.?: No Are you currently unemployed and looking for a job?: No Are you interested in more education?: Yes Please select the resources that you would like help with: Housing/Penitentiary Currently or been in a relationship where the following occur: No concerns reported THRIVE Score: 0 AUDIT C Alcohol Use Questionnaire (AUDIT-C) 1. How often do you have a drink containing alcohol?: Never Total Score: 0 ARCELIA-7 AMB Questionnaire ARCELIA-7 Date ARCELIA - 7 assessed: 09/02/22 Feeling nervous, anxious, or on edge: 2 = More than half the days Not being able to stop or control worryin = More than half the days Worrying too much about different things: 2 = More than half the days Trouble relaxin = More than half the days Being so restless that it is hard to sit still: 1 = Several days Becoming easily annoyed or irritable: 1 = Several days Feeling afraid as if something awful might happen: 1 = Several days Total ARCELIA-7 score (0-4 normal; 5-9 mild; 10-14 moderate; 15-21 severe): 11 Source: Developed by Drs. Bahman Titus, Sergio Devi and colleagues, with an educational radha from [employer]. ARCELIA-7 Assessment Billing ARCELIA-7 Assessment Tool: ARCELIA-7 Assessment 32759 Review of Systems Const Denies body aches, Denies chills, Denies fatigue, Denies fever(s), Denies headache(s) and Denies poor appetite Eyes Denies change in vision ENT Reports no additional complaints and Denies headache(s) Card Denies chest pain, Denies chest pain with activity, Denies rapid heart rate, Denies pedal edema and Denies dyspnea Resp Denies cough and Denies dyspnea GI Reports no additional complaints Reports nocturia, Denies dysuria, Reports urinary incontinence and Reports urinary urgency Musc Reports as per HPI Skin/Breast Denies breast pain, Denies breast mass and Denies rash Neuro Denies headache(s) Psych Reports as per HPI Endo Denies fatigue Lefty/Lymph Reports no additional complaints Aller/Immun Reports no additional complaints Physical exam (Primary Care) Vital Signs: Last Vital Signs Pulse 93 12/13/23 12:50 BP 110/70 12/13/23 12:50 Pulse Ox 96 12/13/23 12:50 Oxygen Delivery Method Room Air 12/13/23 12:50 BMI result Body Mass Index 28.9 Tobacco/Smoking Status: Tobacco use Status Tobacco use date assessed 07/13/23 12/13/23 12:52 Patient Tobacco Use Status Current everyday Tobacco 12/13/23 12:52 Tobacco use type Cigarette 12/13/23 12:52 e-Cigarette/Vaping Use Never Used 12/13/23 12:52 Are you ready to quit: No PHQ-9: PHQ-9 Score PHQ-9: Total score 2 12/13/23 13:16 Depression Screening Interpretation: Negative Thrive Assessment: Date of Thrive Assessment Date Thrive assessed 07/13/23 12/13/23 12:52 Currently or been in a relationship where the following occur: No concerns reported Const Other: Alert oriented x3, no acute distress noted, normal gait Orientation/consciousness: patient oriented x3 HENMT Head: Yes normocephalic Ears: TM's normal bilaterally and EAC's normal Face and sinus: Yes face symmetric Mouth: Normal oral and palatal mucosa present and moist mucous membranes Eyes General: appearance normal, both eyes and all related structures Neck Neck: Yes full ROM, Yes no lymphadenopathy and Yes supple Chest Chest palpation & inspection: normal inspection of the chest Breast/axilla palpation: normal palpation of the breasts Resp Auscultation: clear to auscultation bilaterally Cardio Rate: regular rate Rhythm: regular rhythm Heart sounds: S1 normal heart sound present and S2 normal heart sound present GI Palpation (GI): Soft to palpation, nontender, no guarding and no masses Auscultation: normal bowel sounds General: Yes no CVA tenderness Back/Spine/Pelvis Back: no CVA tenderness and No back tenderness Skin General skin exam: no rashes or lesions noted Neuro General: patient oriented x3, gait normal, moves all extremities, Normal light touch and pain sensation, no focal motor deficits and CN's II-XI intact bilaterally Extrem General: Yes full ROM, Yes no joint enlargement, Yes no clubbing, cyanosis or edema and Yes normal gait Psych Appearance: grossly normal and well kempt Mental Status: mental status grossly normal Speech and movement: Normal speech and movement present Affect: Sad affect present Thought process: Normal thought process present Thought content: Normal thought content present Assessment and Plan Assessment & Plan (1) Annual visit for general adult medical examination with abnormal findings: Code(s): Z00.01 - Encounter for general adult medical examination with abnormal findings Plan: Will check appropriate labs. Continue regular dental visit every 6 months and regular eye exams, at least every 2 years. Take adequate calcium in diet and vitamin-D 3 at 2000 IU per cap once a day, in addition to weight-bearing exercises to help maintain good muscle tone and weight control. Instructed to do self-breast exam, and recommended to get yearly mammogram, ordered. Up-to-date with her cervical cancer screening [place] last done in 2021 which showed atrophic vaginal mucosa. Up-to-date with her screening colonoscopy done by Dr. Duffy, due again in 2024 Patient does not want to get any vaccines. (2) Vitamin D deficiency: Code(s): E55.9 - Vitamin D deficiency, unspecified Plan: Will check vitamin-D level (3) Dyslipidemia: Code(s): E78.5 - Hyperlipidemia, unspecified Plan: Fasting lipid panel ordered. (4) Cigarette smoker motivated to quit: Code(s): F17.210 - Nicotine dependence, cigarettes, uncomplicated Plan: Discussed options for smoking cessation with medications. Pt wishes to try Nicotine patch. Pt advised to apply the nicotine patch as directed on cigarette quit day. Remove patch at night before sleeping. Discussed common side effects and strongly advised not to smoke while using the patch. If developes any adverse effects please call office. Follow up in office 4-weeks .Discussed side effects including but not limited to local erythema, rash, diarrhea, and insomnia., , (5) Generalized anxiety disorder: Code(s): F41.1 - Generalized anxiety disorder Plan: Will start her on sertraline 50 mg per tablet to take once a day. Start initially with half a tablet or 25 mg once a day for the 1st week and then increase it to 50 mg once a day if needed. Will see her back for follow-up week of December (6) Mixed urge and stress incontinence: Code(s): N39.46 - Mixed incontinence Plan: Prescription sent for mirabegron ER 25 mg per tablet take once a day Orders: Orders Aspartate Amino Transferase 12/13/23 E55.9 - Vitamin D deficiency, unspecified, E78.5 - Hyperlipidemia, unspecified, F17.210 - Nicotine dependence, cigarettes, uncomplicated, F41.1 - Generalized anxiety disorder, Z00.01 - Encounter for general adult medical examination with abnormal findings Basic Metabolic Panel Fasting 12/13/23 E55.9 - Vitamin D deficiency, unspecified, E78.5 - Hyperlipidemia, unspecified, F17.210 - Nicotine dependence, cigarettes, uncomplicated, F41.1 - Generalized anxiety disorder, Z00.01 - Encounter for general adult medical examination with abnormal findings Vitamin B12 and Folate 12/13/23 E55.9 - Vitamin D deficiency, unspecified, E78.5 - Hyperlipidemia, unspecified, F17.210 - Nicotine dependence, cigarettes, uncomplicated, F41.1 - Generalized anxiety disorder, Z00.01 - Encounter for [facility] adult medical examination with abnormal findings TSH reflex Free T4 12/13/23 E55.9 - Vitamin D deficiency, unspecified, E78.5 - Hyperlipidemia, unspecified, F17.210 - Nicotine dependence, cigarettes, uncomplicated, F41.1 - Generalized anxiety disorder, Z00.01 - Encounter for general adult medical examination with abnormal findings MM tomosynthesis screening BI 12/13/23 Z12.31 - Encounter for screening mammogram for malignant neoplasm of breast Alanine Aminotransferase 12/13/23 E55.9 - Vitamin D deficiency, unspecified, E78.5 - Hyperlipidemia, unspecified, F17.210 - Nicotine dependence, cigarettes, uncomplicated, F41.1 - Generalized anxiety disorder, Z00.01 - Encounter for general adult medical examination with abnormal findings Lipid Panel 12/13/23 E55.9 - Vitamin D deficiency, unspecified, E78.5 - Hyperlipidemia, unspecified, F17.210 - Nicotine dependence, cigarettes, unco mplicated, F41.1 - Generalized anxiety disorder, Z00.01 - Encounter for general adult medical examination with abnormal findings Vitamin D 25-OH Total 12/13/23 E55.9 - Vitamin D deficiency, unspecified, E78.5 - Hyperlipidemia, unspecified, F17.210 - Nicotine dependence, cigarettes, uncomplicated, F41.1 - Generalized anxiety disorder, Z00.01 - Encounter for general adult medical examination with abnormal findings Medications: New sertraline 50 mg PO DAILY 30 tabs 1RF mirabegron ER (Myrbetriq) 25 mg PO DAILY 30 tabs 0RF N39.46 - Mixed incontinence Refilled nicotine 1 patch transdermal DAILY 28 ea 0RF Coding Level of Care Code Est Pt Prev Care 40-64y(64699) Diagnoses Annual visit for general adult medical examination with abnormal findings Z00.01 Vitamin D deficiency E55.9 Dyslipidemia E78.5 Cigarette smoker motivated to quit F17.210 Generalized anxiety disorder F41.1 Mixed urge and stress incontinence N39.46 Additional Codes ARCELIA-7 Assessment Billing - ARCELIA-7 Assessment Tool: ARCELIA-7 Assessment 61377 ([id number])
[2023-12-13 12:50] VITALS: BP 110/70; PULSE 93; O2SAT 96; BMI 28.9
== END 2023-12-13 14:03 | disposition home or self-care (01) ==
PROVIDERS: PCP Internal Medicine; Visit Provider Internal Medicine
DX: Z00.00 Encounter for general adult medical examination without abnormal findings (principal); E55.9 Vitamin D deficiency, unspecified; E78.5 Hyperlipidemia, unspecified; F17.210 Nicotine dependence, cigarettes, uncomplicated; F41.1 Generalized anxiety disorder; N39.46 Mixed incontinence
CPT/HCPCS: 96127; 99213; 99396

== ENCOUNTER 2023-12-20 07:39 | Outpatient (REF) | payer OTHER, SELFPAY ==
[2023-12-20 10:48] LABS: Alanine Aminotransferase 21 U/L (0-31); Anion Gap 13 (12-20); Aspartate Amino Transferase 20 U/L (5-31); Blood Urea Nitrogen 11 mg/dL (9-16); Calcium 9.8 mg/dL (8.4-10.2); Carbon Dioxide 29 mmol/L (22-29); Chloride 105 mmol/L (96-108); Cholesterol 258 mg/dL (<200); Estimated Glomerular Filt Rate > 60; Glucose Fasting 98 mg/dL (60-99); HDL Cholesterol 53 mg/dL (>40); LDL Cholesterol Calculated 183 mg/dL (<100); Potassium 3.8 mmol/L (3.3-5.1); Sodium 143 mmol/L (135-145); Triglycerides 113 mg/dL (<150)
[2023-12-20 10:49] LABS: TSH reflex Free T4 3.22 uIU/mL (0.32-4.0); Vitamin D 25-OH Total 44.5 ng/mL (>30)
[2023-12-20 13:15] LABS: Folate 9.8 ng/mL (> or = 4.0); Vitamin B12 705 pg/mL (200-900)
== END 2023-12-20 07:40 | disposition home or self-care (01) ==
LOC: HO.HMGCLDS 07:39
PROVIDERS: PCP Internal Medicine; Visit Provider Internal Medicine
DX: Z00.01 Encounter for general adult medical examination with abnormal findings (principal); F41.1 Generalized anxiety disorder; F17.210 Nicotine dependence, cigarettes, uncomplicated; E78.5 Hyperlipidemia, unspecified; E55.9 Vitamin D deficiency, unspecified
CPT/HCPCS: 36415; 80048; 80061; 82306; 82607; 82746; 84443; 84450; 84460

== ENCOUNTER 2023-12-28 11:39 | Outpatient (REF) | payer OTHER, SELFPAY | END 2023-12-28 11:40 | disposition home or self-care (01) | LOC: HO.MAMMO 11:39 | PROVIDERS: PCP Internal Medicine; Visit Provider Internal Medicine | DX: Z12.31 Encounter for screening mammogram for malignant neoplasm of breast (principal) | CPT/HCPCS: 77063; 77067 ==

== ENCOUNTER → 2023-12-28 11:45 | Outpatient (BNV) | payer OTHER, SELFPAY | PROVIDERS: PCP Internal Medicine; Visit Provider Radiology Diagnostic Radiology | DX: Z12.31 Encounter for screening mammogram for malignant neoplasm of breast (principal) | CPT/HCPCS: 77063; 77067 ==

== ENCOUNTER 2024-01-07 08:28 | Outpatient (AMB) | payer OTHER, SELFPAY ==
--- NOTE | 2024-01-07 08:36 | A.OFFPC_ITS ---
Intake Visit Reasons: 3WK TH per AE Allergies adhesive tape Allergy (Intermediate, Verified 01/07/24 09:03) Blister egg Allergy (Unknown, Verified 01/07/24 09:03) Nausea lorazepam Adverse Reaction (Unknown, Verified 01/07/24 09:03) increased anxiety & anger Medication List - Last Reconciled 01/07/24 by Leda Al MD albuterol sulfate 90 mcg/actuation (ProAir HFA) 2 puffs inhalation Q4-6H PRN ascorbate calcium (vitamin C) 500 mg PO DAILY clonazepam 0.25 mg PO DAILY PRN fluticasone propionate 110 mcg/actuation 1 puff inhalation Q12H hydrocortisone-pramoxine 1-1 % 1 appl MI QID PRN mirabegron ER (Myrbetriq) 25 mg PO DAILY mupirocin 2% 1 appl topical BID 5 days nicotine 1 patch transdermal DAILY nystatin 1 appl topical BID PRN sertraline 50 mg PO DAILY Tobacco use date assessed: 07/13/23 Dental Screening Dental Screen Date: 07/13/23 HPI 3WK TH per AE HPI Details Karli is here for follow-up on her anxiety disorder, started on sertraline on last visit, has been taking 25 mg once a day, which she states has been taking the edge off her anxiety but will be starting to increase the dose now to 50 mg starting tomorrow. Denies any other side effects from the medication. She also was started on nicotine patch 21 mg, has been using it as directed but would sometimes take it off and have a cigarette every now and then, as she still gets occasional cravings for smoking. Would like to continue on the same dose. Started Myrbetriq 25 mg taken once a day which has been helping with her urinary incontinence , denies any side effects from medications . Recent fasting labs showed high LDL cholesterol at 183 mg/dL, has been progressively increasing compared to previous lab . Has been compliant with the low-cholesterol diet but just started walking for exercise [facility] Medical History (Updated 01/07/24 @ 09:23 by Leda Al MD) Mixed urge and stress incontinence Generalized anxiety disorder Cigarette smoker motivated to quit Hidradenitis suppurativa of multiple sites Hx of major depression No vaccination-pt refuse Hemorrhoids with complication Erythema intertrigo Hemorrhoid thrombosis ADHD Depression, major, recurrent COVID-19 vaccination declined Dyslipidemia Refused influenza vaccine Auditory hallucinations Surgical History History of hemorrhoidectomy History of excision of epidermal inclusion cyst (10/24/21) H/O oophorectomy Family History Father Substance use disorder Mother Lung cancer Substance use disorder Maternal Grandmother Diabetes mellitus Brother Lung cancer Substance use disorder Mental health disorder Brother Substance use disorder Brother Substance use disorder Brother Substance use disorder Brother Substance use disorder Sister Substance use disorder Mental health disorder Son No problems noted. Social History Housing: Condominium Alcohol intake: current Alcohol intake frequency: holidays/special occasions only Patient Tobacco Use Status: Current someday Tobacco user Tobacco use type: Cigarette Cigarette Packs Per Day: 0.5 Cigarettes Per Day: 7 e-Cigarette/Vaping Use: Never Used Second Hand Smoke Exposure: No service: No Current occupational status: unemployed Cognitive needs: No Hearing needs: No Vision needs: No Female Reproductive History Menstrual Age of Menarche: 16 Questionnaire PHQ-9 Over the last 2 weeks, how often have you been bothered by any of the following problems? 1. Little interest or pleasure in doing things: not at all 2. Feeling down, depressed, or hopeless: not at all 3. Trouble falling or staying asleep, or sleeping too much: several days 4. Feeling tired or having little energy: several days 5. Poor appetite or overeating: not at all 6. Feeling bad about yourself - or that you are a failure or have let yourself or your family down: not at all 7. Trouble concentrating on things, such as reading the newspaper or watching television: not at all 8. Moving or speaking so slowly that other people could have noticed. Or the opposite - being so fidgety or restless that you have been moving around a lot more than usual: not at all 9. Thoughts that you would be better off or of hurting yourself in some way: not at all Total score: 2 Depression Screening Interpretation: Negative Depression Screening Done: Yes 80487 - PHQ-9 Billing: Yes Source: Developed by Drs. Bahman Titus, Sergio Devi and colleagues, with an educational radha from [employer]. Thrive Questionnaire Date Thrive assessed: 07/13/23 I am a: Patient What is your living situation today?: I have a steady place to live Within the past 12 months, did the food you bought not last and you didn't have the money to get more?: Never true Within the past 12 months, did you worry whether your food would run out before you got money to buy more?: Never true Do you have trouble paying for medicines?: No Do you have trouble getting transportation to medical appointments?: No Do you have trouble paying your heating and electricity bill?: No Do you have trouble taking care of your child, family member or friend?: No Do you have trouble with day-to-day activities such as bathing, preparing meals, shopping, managing finances, etc.?: No Are you currently unemployed and looking for a job?: No Are you interested in more education?: Yes Please select the resources that you would like help with: Housing/Senior Care Currently or been in a relationship where the following occur: No concerns reported THRIVE Score: 0 AUDIT C Alcohol Use Questionnaire (AUDIT-C) 1. How often do you have a drink containing alcohol?: Never 3. How often do you have six or more drinks on one occasion?: Never Total Score: 0 Score Reviewed/Action Taken: Yes ARCELIA-7 AMB Questionnaire ARCELIA-7 Date ARCELIA - 7 assessed: 01/07/24 Feeling nervous, anxious, or on edge: 1 = Several days Not being able to stop or control worryin = Not at all Worrying too much about different things: 1 = Several days Trouble relaxin = Not at all Being so restless that it is hard to sit still: 0 = Not at all Becoming easily annoyed or irritable: 0 = Not at all Feeling afraid as if something awful might happen: 0 = Not at all Total ARCELIA-7 score (0-4 normal; 5-9 mild; 10-14 moderate; 15-21 severe): 2 Source: Developed by Drs. Bahman Titus, Sergio Devi and colleagues, with an educational radha from [employer]. ARCELIA-7 Assessment Billing ARCELIA-7 Assessment Tool: ARCELIA-7 Assessment 44125 Review of Systems Const Denies body aches, Denies chills, Denies fever(s) and Denies poor appetite Eyes Denies change in vision ENT Reports no additional complaints Card Denies chest pain, Denies chest pain with activity, Denies rapid heart rate and Denies dyspnea Resp Denies cough and Denies dyspnea GI Reports no additional complaints Denies dysuria, Denies urinary incontinence, Denies urinary hesitancy and Denies urinary urgency Musc Reports no additional complaints Neuro Reports no additional complaints Psych Reports as per HPI Endo Reports no additional complaints Lefty/Lymph Reports no additional complaints Aller/Immun Reports no additional complaints Physical exam (Primary Care) Tobacco/Smoking Status: Tobacco use Status Tobacco use date assessed 07/13/23 01/07/24 08:38 Patient Tobacco Use Status Current someday Tobacco 01/07/24 09:11 Tobacco use type Cigarette 01/07/24 08:38 e-Cigarette/Vaping Use Never Used 01/07/24 08:38 PHQ-9: PHQ-9 Score PHQ-9: Total score 2 01/07/24 09:11 Depression Screening Interpretation: Negative Thrive Assessment: Date of Thrive Assessment Date Thrive assessed 07/13/23 01/07/24 08:38 Currently or been in a relationship where the following occur: No concerns reported Telehealth Telehealth Telehealth Platform: [facility] Location of provider rendering services: practice address Location of patient: address on file Patient Identification confirmed using: Name, : Yes Telehealth method: video Patient verbally consented to treatment: Yes Patient verbally consented to billing insurance company: Yes Patient informed of any privacy concerns related to visit: Yes Minutes spent on Phone/Video with Pt.: 25 Results Reviewed Results Reviewed: Name: Karli Victor Age/Sex: 63/F : 1960 Unit#: [id number] Attend Dr: Leda Al MD Re12/20/23 Status: DEP REF [facility] Disch: SPEC : [id number] BERTRAM: 12/20/23-0757 STATUS: COMP REQ : [id number] RECD: 12/20/23-[address]: Leda Al MD COMP: 12/20/23-1049 ENTERED: 12/20/230756 [facility] DR: ORDERED: Met Prof Fast, AST, ALT, Lipid Panel, Vitamin D 25-OH, TSH Rflx Test Result Flag Reference Sodium 143 135-145 mmol/L Potassium 3.8 3.3-5.1 mmol/L CL 105 96-108 mmol/L CO2 29 22-29 mmol/L Gap 13 12-20 BUN 11 9-16 mg/dL Creat 0.70 0.5-1.4 mg/dL EGFR > 60 NOTE: For -[place] individuals, multiply the result by 1.210. Chronic Kidney Disease: Estimated GFR < 60 mL/min/1.73m2 Severe Kidney Disease: Estimated GFR < 15 mL/min/1.73m2 FBS 98 60-99 mg/dL CA 9.8 # 8.4-10.2 mg/dL AST (GOT) 20 5-31 U/L ALT (GPT) 21 0-31 U/L Triglyceride 113 <150 mg/dL Desirable Triglyceride: less than 150 mg/dL Borderline High Triglyceride 150-199 mg/dL High Triglyceride: 200-499 mg/dL Very High Triglyceride: greater than or equal to 5OO mg/dL Cholesterol 258 H <200 mg/dL Desirable Cholesterol: less than 200 mg/dL Borderline High Cholesterol: 200-239 mg/dL High Cholesterol: greater than 239 mg/dL LDL Calculated 183 H <100 mg/dL Desirable LDL: less than 100 mg/dL Near Optimal/Above Optimal LDL: 110-129 mg/dL Borderline High LDL: 130-159 mg/dL High LDL: 160-189 mg/dL Very High LDL: greater than or equal to 190 mg/dL HDL 53 >40 mg/dL Desirable HDL: greater than 40 mg/dL Note: This HDL assay may give artificially low results in patients with liver disease. Vit D 25-OH Tot 44.5 >30 ng/mL Health Based Reference Values* < 20 ng/mL Deficient 20-30 ng/mL Insufficient > 30 ng/mL Sufficient *Shannon MENDEZ. N Engl J Med. 2007;357:266-280 Care must be taken in interpreting Vitamin D results from different laboratories and methodologies. Published data demonstrated that results from patients undergoing hemodialysis may show a negative bias when tested with various automated 25-OH vitamin D assays when compared to LC-MS/MS. When testing samples from patients whose predominant form of Vitamin D is Vitamin D2, such as patients receiving Vitamin D2 supplementation, results that are subtherapeutic should be confirmed with another method such as LC-MS/MS. TSH 3.22 0.32-4.0 uIU/mL Assessment and Plan Assessment & Plan (1) Dyslipidemia: Code(s): E78.5 - Hyperlipidemia, unspecified Plan: Will start on rosuvastatin 5 mg per tablet to take 1 tablet 3 times a week, advised to take it with Co Q10 100 mg capsule . Reinforced importance of following low-cholesterol diet and getting regular exercise. We will repeat another fasting lipid panel in 3 months (2) Generalized anxiety disorder: Code(s): F41.1 - Generalized anxiety disorder Plan: Doing better on sertraline, will continue on 50 mg tablet taken once a day. Pre scription sent for 90 tablets with 1 refill will see her back for follow-up in 1 month (3) Mixed urge and stress incontinence: Code(s): N39.46 - Mixed incontinence Plan: Incontinence controlled now wears mirabegron ER 25 mg taken once a day. Will continue on present dose (4) Cigarette smoker motivated to quit: Code(s): F17.210 - Nicotine dependence, cigarettes, uncomplicated Plan: Reinforced importance of stopping smoking, will continue on nicotine patch 21 mg, apply as directed remove at bedtime, do not smoke while using the patch. See her back for follow-up in 1 month Orders: Orders Lipid Panel 3 Months E78.5 - Hyperlipidemia, unspecified Aspartate Amino Transferase 3 Months E78.5 - Hyperlipidemia, unspecified Alanine Aminotransferase 3 Months E78.5 - Hyperlipidemia, unspecified Medications: New rosuvastatin 5 mg PO 3XW 39 tabs 1RF 3 months E78.5 - Hyperlipidemia, unspecified Refilled nicotine 1 patch transdermal DAILY 28 ea 0RF sertraline 50 mg PO DAILY 90 tabs 1RF mirabegron ER (Myrbetriq) 25 mg PO DAILY 30 tabs 5RF N39.46 - Mixed incontinence Coding Level of Care Code Tele Est Pt Level 4 (75631) Diagnoses Dyslipidemia E78.5 Generalized anxiety disorder F41.1 Mixed urge and stress incontinence N39.46 Cigarette smoker motivated to quit F17.210 Additional Codes ARCELIA-7 Assessment Billing - ARCELIA-7 Assessment Tool: ARCELIA-7 Assessment 19269 ([id number])
== END 2024-01-07 13:29 | disposition home or self-care (01) ==
LOC: HO.HMGC 08:28
PROVIDERS: PCP Internal Medicine; Visit Provider Internal Medicine
DX: E78.5 Hyperlipidemia, unspecified (principal); F41.1 Generalized anxiety disorder; N39.46 Mixed incontinence; F17.210 Nicotine dependence, cigarettes, uncomplicated
CPT/HCPCS: 99214

== ENCOUNTER 2024-02-04 08:55 | Outpatient (AMB) | payer OTHER, SELFPAY ==
--- NOTE | 2024-02-04 08:51 | MHC.PC.OV ---
Intake Visit Reasons: 1 month follow up Allergies adhesive tape Allergy (Intermediate, Verified 02/04/24 09:14) Blister egg Allergy (Unknown, Verified 02/04/24 09:14) Nausea lorazepam Adverse Reaction (Unknown, Verified 02/04/24 09:14) increased anxiety & anger Medication List - Last Reconciled 02/04/24 by Leda Al MD albuterol sulfate 90 mcg/actuation (ProAir HFA) 2 puffs inhalation Q4-6H PRN ascorbate calcium (vitamin C) 500 mg PO DAILY clonazepam 0.25 mg PO DAILY PRN fluticasone propionate 110 mcg/actuation 1 puff inhalation Q12H hydrocortisone-pramoxine 1-1 % 1 appl HI QID PRN mupirocin 2% 1 appl topical BID 5 days nicotine 1 patch transdermal DAILY nystatin 1 appl topical BID PRN rosuvastatin 5 mg PO 3XW 3 months sertraline 50 mg PO DAILY Tobacco use date assessed: 02/04/24 Dental Screening Dental Screen Date: 02/04/24 Did you have a dental visit in the last 12 months?: Yes Did you have a dental problem in the last 6 months where you did not have access to dental care?: No Was dental information given to patient?: Patient has dentist HPI 1 month follow up HPI Details 63-year-old lady here today for follow-up on her smoking cessation. She has been started on nicotine patch 21 mg per patch, and has been able to successfully stop smoking after using it for the last 4 weeks. Denies any adverse effects from the medication. Still however gets cravings for nicotine which she tries to suppress sucking on a straw. Would like to continue with the nicotine patch at the same dose, not ready to go down to the 14 mg patch Generalized anxiety disorder is stable controlled on sertraline and has clonazepam to take only as needed for acute anxiety attacks currently being followed Psychiatry. She has hyperlipidemia, started on rosuvastatin 5 mg taken 1 tablet 3 times a week, which has been able to tolerate, denies any muscle pain or weakness since starting the medication, has been trying to adhere to a low-cholesterol diet and incorporating more exercise in her day. [facility] Medical History Mixed urge and stress incontinence Generalized anxiety disorder Cigarette smoker motivated to quit Hidradenitis suppurativa of multiple sites Hx of major depression No vaccination-pt refuse Hemorrhoids with complication Erythema intertrigo Hemorrhoid thrombosis ADHD Depression, major, recurrent COVID-19 vaccination declined Dyslipidemia Refused influenza vaccine Auditory hallucinations Surgical History History of hemorrhoidectomy History of excision of epidermal inclusion cyst (10/24/21) H/O oophorectomy Family History Father Substance use disorder Mother Lung cancer Substance use disorder Maternal Grandmother Diabetes mellitus Brother Lung cancer Substance use disorder Mental health disorder Brother Substance use disorder Brother Substance use disorder Brother Substance use disorder Brother Substance use disorder Sister Substance use disorder Mental health disorder Son No problems noted. Social History Housing: Condominium Alcohol intake: current Alcohol intake frequency: holidays/special occasions only Patient Tobacco Use Status: Former Tobacco user Tobacco use type: Cigarette Cigarette Packs Per Day: 0.5 Cigarettes Per Day: 7 e-Cigarette/Vaping Use: Never Used Second Hand Smoke Exposure: No service: No Current occupational status: unemployed Cognitive needs: No Hearing needs: No Vision needs: No Female Reproductive History Menstrual Age of Menarche: 16 Questionnaire Thrive Questionnaire Date Thrive assessed: 07/13/23 ARCELIA-7 AMB Questionnaire ARCELIA-7 Date ARCELIA - 7 assessed: 01/07/24 Source: Developed by Drs. Bahman Titus, Gena Martinez, Sergio Ching and colleagues, with an educational radha from [employer]. Review of Systems Const Denies body aches, Denies chills, Denies fever(s) and Denies poor appetite Eyes Denies change in vision ENT Reports no additional complaints Card Denies chest pain, Denies chest pain with activity, Denies rapid heart rate and Denies dyspnea Resp Denies cough and Denies dyspnea GI Reports no additional complaints Denies dysuria, Denies urinary incontinence, Denies urinary hesitancy and Denies urinary urgency Musc Reports no additional complaints Neuro Reports no additional complaints Psych Reports as per HPI Endo Reports no additional complaints Lefty/Lymph Reports no additional complaints Aller/Immun Reports no additional complaints Physical exam (Primary Care) Tobacco/Smoking Status: Tobacco use Status Tobacco use date assessed 02/04/24 02/04/24 08:53 Patient Tobacco Use Status Former Tobacco user 02/04/24 08:53 Tobacco use type Cigarette 02/04/24 08:53 e-Cigarette/Vaping Use Never Used 02/04/24 08:53 Thrive Assessment: Date of Thrive Assessment Date Thrive assessed 07/13/23 02/04/24 08:53 [facility]health [facility] Location of provider rendering services: practice address Location of patient: address on file Patient Identification confirmed using: Name, : Yes Telehealth method: video Patient verbally consented to treatment: Yes Patient verbally consented to billing insurance company: Yes Patient informed of any privacy concerns related to visit: Yes Minutes spent on Phone/Video with Pt.: 15 Results Reviewed Results Reviewed: Name: Karli Victor Age/Sex: 63/F : 1960 Unit#: [id number] Attend Dr: Leda Al MD Re12/20/23 Status: DEP [facility] Dis[facility]: SPEC : [id number] BERTRAM: 12/20/23-756 STATUS: COMP REQ : [id number] RECD: 12/20/23-[address]: Leda lA MD COMP: 12/20/23-1049 ENTERED: 12/20/23-[address]: ORDERED: Met Prof Fast, AST, ALT, Lipid Panel, Vitamin D 25-OH, TSH Rflx Test Result Flag Reference Sodium 143 135-145 mmol/L Potassium 3.8 3.3-5.1 mmol/L CL 105 96-108 mmol/L CO2 29 22-29 mmol/L Gap 13 12-20 BUN 11 9-16 mg/dL Creat 0.70 0.5-1.4 mg/dL EGFR > 60 NOTE: For -[place] individuals, multiply the result by 1.210. Chronic Kidney Disease: Estimated GFR < 60 mL/min/1.73m2 Severe Kidney Disease: Estimated GFR < 15 mL/min/1.73m2 FBS 98 60-99 mg/dL CA 9.8 # 8.4-10.2 mg/dL AST (GOT) 20 5-31 U/L ALT (GPT) 21 0-31 U/L Triglyceride 113 <150 mg/dL Desirable Triglyceride: less than 150 mg/dL Borderline High Triglyceride 150-199 mg/dL High Triglyceride: 200-499 mg/dL Very High Triglyceride: greater than or equal to 5OO mg/dL Cholesterol 258 H <200 mg/dL Desirable Cholesterol: less than 200 mg/dL Borderline High Cholesterol: 200-239 mg/dL High Cholesterol: greater than 239 mg/dL LDL Calculated 183 H <100 mg/dL Desirable LDL: less than 100 mg/dL Near Optimal/Above Optimal LDL: 110-129 mg/dL Borderline High LDL: 130-159 mg/dL High LDL: 160-189 mg/dL Very High LDL: greater than or equal to 190 mg/dL HDL 53 >40 mg/dL Desirable HDL: greater than 40 mg/dL Note: This HDL assay may give artificially low results in patients with liver disease. Vit D 25-OH Tot 44.5 >30 ng/mL Health Based Reference Values* < 20 ng/mL Deficient 20-30 ng/mL Insufficient > 30 ng/mL Sufficient *Shannon MENDEZ. N Engl J Med. 2007;357:266-280 Care must be taken in interpreting Vitamin D results from different laboratories and methodologies. Published data demonstrated that results from patients undergoing hemodialysis may show a negative bias when tested with various automated 25-OH vitamin D assays when compared to LC-MS/MS. When testing samples from patients whose predominant form of Vitamin D is Vitamin D2, such as patients receiving Vitamin D2 supplementation, results that are subtherapeutic should be confirmed with another method such as LC-MS/MS. TSH 3.22 0.32-4.0 uIU/mL Assessment and Plan Assessment & Plan (1) Cigarette smoker motivated to quit: Code(s): F17.210 - Nicotine dependence, cigarettes, uncomplicated Plan: Has been able to quit cigarettes since starting the nicotine patch, but still has been getting cravings. No smoking now for the last 2-3 weeks. Would like to continue still with the higher dose patch. Tolerating medication well, with no adverse effects reported. Will continue on another month of 21 mg nicotine patch, to be used as directed, will see her back in 4 weeks for follow-up. (2) Dyslipidemia: Code(s): E78.5 - Hyperlipidemia, unspecified Plan: Has been taking rosuvastatin 5 mg 1 tablet 3 times a week, with no significant muscle pain reported since starting the medication. Reinforced importance of following low-cholesterol diet and getting regular exercise. Will continue on current dose of rosuvastatin, and repeat another fasting lipid panel 03/2025. (3) Generalized anxiety disorder: Code(s): F41.1 - Generalized anxiety disorder Plan: Sertraline 50 mg once daily and takes clonazepam as needed for acute anxiety attacks. Currently followed by psychiatry Medications: Refilled nicotine 1 patch transdermal DAILY 28 ea 0RF Coding Level of Care Code Est Pt Level 4 (81802) Complex EM visit Add On G2211 Diagnoses Cigarette smoker motivated to quit F17.210 Dyslipidemia E78.5 Generalized anxiety disorder F41.1
== END 2024-02-04 09:42 | disposition home or self-care (01) ==
LOC: HO.HMGC 08:55
PROVIDERS: PCP Internal Medicine; Visit Provider Internal Medicine
DX: F17.210 Nicotine dependence, cigarettes, uncomplicated (principal); E78.5 Hyperlipidemia, unspecified; F41.1 Generalized anxiety disorder
CPT/HCPCS: 99214; G2211

== ENCOUNTER 2024-04-04 14:36 | Outpatient (REF) | payer OTHER, SELFPAY ==
[2024-04-04 16:46] LABS: Alanine Aminotransferase 20 U/L (0-31); Aspartate Amino Transferase 26 U/L (5-31); Cholesterol 204 mg/dL (<200); HDL Cholesterol 60 mg/dL (>40); LDL Cholesterol Calculated 122 mg/dL (<100); Triglycerides 111 mg/dL (<150)
== END 2024-04-04 14:37 | disposition home or self-care (01) ==
LOC: HO.HMGCLDS 14:36
PROVIDERS: PCP Internal Medicine; Visit Provider Internal Medicine
DX: E78.5 Hyperlipidemia, unspecified (principal)
CPT/HCPCS: 36415; 80061; 84450; 84460

== ENCOUNTER 2024-04-07 09:08 | Outpatient (AMB) | payer OTHER, SELFPAY ==
--- NOTE | 2024-04-07 09:06 | MHC.PC.OV ---
Intake Visit Reasons: smoking cessation/ labs iphone [phone] Allergies adhesive tape Allergy (Intermediate, Verified 04/07/24 09:10) Blister egg Allergy (Unknown, Verified 04/07/24 09:10) Nausea lorazepam Adverse Reaction (Unknown, Verified 04/07/24 09:10) increased anxiety & anger Medication List - Last Reconciled 04/07/24 by Leda Al MD albuterol sulfate 90 mcg/actuation (ProAir HFA) 2 puffs inhalation Q4-6H PRN ascorbate calcium (vitamin C) 500 mg PO DAILY clonazepam 0.25 mg PO DAILY PRN fluticasone propionate 110 mcg/actuation 1 puff inhalation Q12H hydrocortisone-pramoxine 1-1 % 1 appl [place] QID PRN mupirocin 2% 1 appl topical BID 5 days nicotine 1 patch transdermal DAILY nystatin 1 appl topical BID PRN rosuvastatin 5 mg PO 3XW 3 months sertraline 50 mg PO DAILY Tobacco use date assessed: 04/07/24 Dental Screening Dental Screen Date: 04/07/24 Did you have a dental visit in the last 12 months?: Yes Did you have a dental problem in the last 6 months where you did not have access to dental care?: No Was dental information given to patient?: Patient has dentist HPI smoking cessation/ labs iphone [phone] HPI Details 63-year-old lady here today for follow-up on her smoking cessation . Has been using the patch every now and then, last prescription was sent in 01/18/2024. Patient states that she sometimes which heat and not wear the patch but when she is using it she is able to not smoke. Currently on nicotine patch 21 mg. Would like to continue She is also here for follow-up on her elevated cholesterol levels. Currently taking rosuvastatin 5 mg 3 times a week for the last 3 months. Recent fasting labs showed marked improvement in her lipid levels now with LDL cholesterol at 122 mg as compared to 183 mg/dL 3 months ago. [facility] Medical History Mixed urge and stress incontinence Generalized anxiety disorder Cigarette smoker motivated to quit Hidradenitis suppurativa of multiple sites Hx of major depression No vaccination-pt refuse Hemorrhoids with complication Erythema intertrigo Hemorrhoid thrombosis ADHD Depression, major, recurrent COVID-19 vaccination declined Dyslipidemia Refused influenza vaccine Auditory hallucinations Surgical History History of hemorrhoidectomy History of excision of epidermal inclusion cyst (10/24/21) H/O oophorectomy Family History Father Substance use disorder Mother Lung cancer Substance use disorder Maternal Grandmother Diabetes mellitus Brother Lung cancer Substance use disorder Mental health disorder Brother Substance use disorder Brother Substance use disorder Brother Substance use disorder Brother Substance use disorder Sister Substance use disorder Mental health disorder Son No problems noted. Social History Housing: Condominium Alcohol intake: current Alcohol intake frequency: holidays/special occasions only Patient Tobacco Use Status: Former Tobacco user Tobacco use type: Cigarette Cigarette Packs Per Day: 0.5 Cigarettes Per Day: 7 e-Cigarette/Vaping Use: Never Used Second Hand Smoke Exposure: No service: No Current occupational status: unemployed Cognitive needs: No Hearing needs: No Vision needs: No Female Reproductive History Menstrual Age of Menarche: 16 Questionnaire Thrive Questionnaire Date Thrive assessed: 07/13/23 ARCELIA-7 AMB Questionnaire ARCELIA-7 Date ARCELIA - 7 assessed: 01/07/24 Source: Developed by Drs. Bahman Titus, Gena Martinez, Sergio Ching and colleagues, with an educational radha from [employer]. Review of Systems Const Denies body aches, Denies chills, Denies fever(s) and Denies poor appetite Eyes Denies change in vision ENT Reports no additional complaints Card Denies chest pain, Denies chest pain with activity, Denies rapid heart rate and Denies dyspnea Resp Denies cough and Denies dyspnea GI Reports no additional complaints Denies dysuria, Denies urinary incontinence, Denies urinary hesitancy and Denies urinary urgency Musc Reports no additional complaints Skin/Breast Denies lesions and Denies rash Neuro Reports no additional complaints Psych Reports as per HPI Endo Reports no additional complaints Lefty/Lymph Reports no additional complaints Aller/Immun Reports no additional complaints Physical exam (Primary Care) Tobacco/Smoking Status: Tobacco use Status Tobacco use date assessed 04/07/24 04/07/24 09:08 Patient Tobacco Use Status Former Tobacco user 04/07/24 09:08 Tobacco use type Cigarette 04/07/24 09:08 e-Cigarette/Vaping Use Never Used 04/07/24 09:08 Thrive Assessment: Date of Thrive Assessment Date Thrive assessed 07/13/23 04/07/24 09:08 Telehealth [facility] services: practice address Location of patient: address on file Patient Identification confirmed using: Name, : Yes Telehealth method: video Patient verbally consented to treatment: Yes Patient verbally consented to billing insurance company: Yes Patient informed of any privacy concerns related to visit: Yes Minutes spent on Phone/Video with Pt.: 15 Results Reviewed Results Reviewed: Name: Karli Victor Age/Sex: 63/F : 1960 Unit#: [id number] Attend Dr: Leda Al MD Re04/04/24 Status: DEP [facility] Disch: SPEC : [id number] BERTRAM: 04/04/24 STATUS: COMP REQ : [id number] RECD: 04/04/24-[address]: Leda Al MD COMP: 04/04/24-1645 ENTERED: 04/04/24-[address] [facility] [address]: ORDERED: AST, ALT, Lipid Panel Test Result Flag Reference AST (GOT) 26 5-31 U/L ALT (GPT) 20 0-31 U/L Triglyceride 111 <150 mg/dL Desirable Triglyceride: less than 150 mg/dL Borderline High Triglyceride 150-199 mg/dL High Triglyceride: 200-499 mg/dL Very High Triglyceride: greater than or equal to 5OO mg/dL Cholesterol 204 H <200 mg/dL Desirable Cholesterol: less than 200 mg/dL Borderline High Cholesterol: 200-239 mg/dL High Cholesterol: greater than 239 mg/dL LDL Calculated 122 H <100 mg/dL Desirable LDL: less than 100 mg/dL Near Optimal/Above Optimal LDL: 110-129 mg/dL Borderline High LDL: 130-159 mg/dL High LDL: 160-189 mg/dL Very High LDL: greater than or equal to 190 mg/dL HDL 60 >40 mg/dL Desirable HDL: greater than 40 mg/dL Note: This HDL assay may give artificially low results in patients with liver disease. Coding Level of Care Code Tele Est Pt Level 4 (63380) Complex EM visit Add On G2211 Diagnoses Dyslipidemia E78.5 Cigarette smoker motivated to quit F17.210 Assessment & Plan Assessment & Plan (1) Dyslipidemia: Code(s): E78.5 - Hyperlipidemia, unspecified Category: Medical Plan: Reviewed recent fasting lipid profile with patient with total cholesterol and LDL levels now almost within normal limits. . Continue rosuvastatin 5 mg per tablet taken 1 tablet 3 times a week, denies any side effects from taking the medication. Continue with adherence to low-cholesterol diet and regular exercise, at least 30 minutes 3 to 4 times a week. Advised patient to make healthy food choices, eat more fruits, vegetables, whole grains, wild caught fish and low-fat dairy. Limit amount of meat and fried or fatty food products, as well as processed foods and fast foods. Follow-up scheduled with repeat fasting lipid panel in 4 months. (2) Cigarette smoker motivated to quit: Code(s): F17.210 - Nicotine dependence, cigarettes, uncomplicated Category: Social Hx Plan: Will continue on nicotine 21 mg patch, encouraged to apply it every day, remove it at night before going to sleep. Rotate sites of application. Do not smoke when using the patch. Call after 4 weeks to see if ready to go down to the next dose of 40 mg per patch. Orders: Orders Lipid Panel 07/29/24 E78.5 - Hyperlipidemia, unspecified Aspartate Amino Transferase 07/29/24 E78.5 - Hyperlipidemia, unspecified Alanine Aminotransferase 07/29/24 E78.5 - Hyperlipidemia, unspecified
== END 2024-04-07 10:01 | disposition home or self-care (01) ==
LOC: HO.HMCC 09:08
PROVIDERS: PCP Internal Medicine; Visit Provider Internal Medicine
DX: E78.5 Hyperlipidemia, unspecified (principal); F17.210 Nicotine dependence, cigarettes, uncomplicated

== ENCOUNTER 2024-04-28 14:32 | Outpatient (AMB) | payer OTHER, SELFPAY ==
[2024-04-28 14:33] VITALS: BP 126/82; PULSE 74; O2SAT 98
--- NOTE | 2024-04-28 14:33 | AM.OFFWIN_ITS ---
Intake Vital Signs 04/28/24 14:33 Weight 154 lb BP 126/82 Blood Pressure Location Rt brachial Position Sitting Pulse 74 Pulse Source Pulse Oximeter Pulse Oximetry (%) 98 Oxygen Delivery Method Room Air Intake Visit Reasons: EP abscess under RT breast, LT armpit and leg Intake Note: Patient here for abscess under breast and back of right leg that has been present for 3 days. Patient Tobacco Use Status: Former Tobacco user Allergies adhesive tape Allergy (Intermediate, Verified 04/28/24 14:38) Blister egg Allergy (Unknown, Verified 04/28/24 14:38) Nausea lorazepam Adverse Reaction (Unknown, Verified 04/28/24 14:38) increased anxiety & anger Medication List - Last Reconciled 04/28/24 by Sharmaine Zamora CNP albuterol sulfate 90 mcg/actuation (ProAir HFA) 2 puffs inhalation Q4-6H PRN ascorbate calcium (vitamin C) 500 mg PO DAILY clonazepam 0.25 mg PO DAILY PRN fluticasone propionate 110 mcg/actuation 1 puff inhalation Q12H hydrocortisone-pramoxine 1-1 % 1 appl [place] QID PRN mupirocin 2% 1 appl topical BID 5 days nicotine 1 patch transdermal DAILY nystatin 1 appl topical BID PRN rosuvastatin 5 mg PO 3XW 3 months sertraline 50 mg PO DAILY Do you need a note to return to daycare/school/sports/work: No HPI HPI Comments History of Present Illness Details 63 yo female presents to walk-in clinic with c/o recurrent cyst left underarm, below left breast fold, and below right buttocks fold that is presently causing her pain, fatigue, headache and general malaise. She denies fever, chills, CP, SOB, abdominal pain, changes in bowels or bladder. [facility] Medical History Mixed urge and stress incontinence Generalized anxiety disorder Cigarette smoker motivated to quit Hidradenitis suppurativa of multiple sites Hx of major depression No vaccination-pt refuse Hemorrhoids with complication Erythema intertrigo Hemorrhoid thrombosis ADHD Depression, major, recurrent COVID-19 vaccination declined Dyslipidemia Refused influenza vaccine Auditory hallucinations Surgical History History of hemorrhoidectomy History of excision of epidermal inclusion cyst (10/24/21) H/O oophorectomy Family History Father Substance use disorder Mother Lung cancer Substance use disorder Maternal Grandmother Diabetes mellitus Brother Lung cancer Substance use disorder Mental health disorder Brother Substance use disorder Brother Substance use disorder Brother Substance use disorder Brother Substance use disorder Sister Substance use disorder Mental health disorder Son No problems noted. Social History Housing: Condominium Alcohol intake: current Alcohol intake frequency: holidays/special occasions only Patient Tobacco Use Status: Former Tobacco user Tobacco use type: Cigarette Cigarette Packs Per Day: 0.5 Cigarettes Per Day: 7 e-Cigarette/Vaping Use: Never Used Second Hand Smoke Exposure: No service: No Current occupational status: unemployed Cognitive needs: No Hearing needs: No Vision needs: No Female Reproductive History Menstrual Age of Menarche: 16 Review of Systems Const All systems reviewed & are unremarkable except as noted in HPI and below Physical Exam Vital Signs: Last Vital Signs Pulse 74 04/28/24 14:33 BP 126/82 04/28/24 14:33 Pulse Ox 98 04/28/24 14:33 Oxygen Delivery Method Room Air 04/28/24 14:33 Const General: healthy appearing and no acute distress Orientation/consciousness: patient oriented x3 Limitations: no limitations HEENT Head: Yes normal to inspection and Yes normocephalic Ears: hearing grossly normal bilaterally Eyes General: appearance normal, both eyes and all related structures Neck Neck: Yes normal visual inspection, Yes full ROM and Yes no lymphadenopathy Chest Chest palpation & inspection: normal inspection of the chest Resp Effort & Inspection: normal respiratory effort, no cough, no respiratory distress and not tachypneic Auscultation: clear to auscultation bilaterally, no rales, no rhonchi and no wheezes Cardio Rate: regular rate Heart sounds: S1 normal heart sound present, S2 normal heart sound present and no murmurs Peripheral pulses: Peripheral pulses 2+ throughout GI Inspection: Yes normal to inspection Palpation (GI): Soft to palpation, nontender and no guarding Percussion: Yes normal to percussion Auscultation: normoactive bowel sounds Skin Other: Non visual mobile cyst palpated left axilary, below left breast, erythema, warm to touch and painful cyst that appears infected. Also noted below right buttocks fold a small dime size pilonidal cyst which is also erythamtous and warm to touch. Neuro General: patient oriented x3, gait normal and moves all extremities Extrem General: Yes normal to inspection, Yes full ROM, Yes capillary refill normal and Yes no clubbing, cyanosis or edema Psych Appearance: grossly normal Affect: normal affect Attitude: cooperative Assessment & Plan Assessment & Plan (1) Sebaceous cyst of left axilla: Code(s): L72.3 - Sebaceous cyst Plan: 63 yo female w/ recurrent sebaceous cyst seen in walk-in clinic for evaluation and treatment of infected below left breast and right buttocks abscess. -- Will treat with Bactrim DS 1 tablet po bid x 10 days, encouraged to take w/ food to reduce GI upset -- Ibuprofen 600 mg po q 6hrs prn pain -- Encouraged to f/u w/ PCP or boiler control room operator if symptoms do not improve for possible I&D -- Encouraged warm epson salt soaks/bath for below right buttocks fold cyst. Return to walk-in clinic if worsening symptoms. (2) Sebaceous cyst of skin of left breast: Code(s): N60.82 - Other benign mammary dysplasias of left breast Plan: -- Will treat with Bactrim DS 1 tablet po bid x 10 days, encouraged to take w/ food to reduce GI upset -- Ibuprofen 600 mg po q 6hrs prn pain -- Encouraged to f/u w/ PCP or boiler control room operator if symptoms do not improve for possible I&D -- Encouraged warm epson salt soaks/bath for below right buttocks fold cyst. Return to walk-in clinic if worsening symptoms. (3) Infected pilonidal cyst: Code(s): L05.91 - Pilonidal cyst without abscess Plan: -- Will treat with Bactrim DS 1 tablet po bid x 10 days, encouraged to take w/ food to reduce GI upset -- Ibuprofen 600 mg po q 6hrs prn pain -- Encouraged to f/u w/ PCP or boiler control room operator if symptoms do not improve for possible I&D -- Encouraged warm epson salt soaks/bath for below right buttocks fold cyst. Return to walk-in clinic if worsening symptoms. Medications: New sulfamethoxazole-trimethoprim 800-160 mg (Bactrim DS) 1 tab PO BID 10 days 20 tabs 0RF L05.91 - Pilonidal cyst without abscess, L72.3 - Sebaceous cyst, N60.82 - Other benign mammary dysplasias of left breast ibuprofen 600 mg PO Q6H PRN 20 tabs 0RF pain L05.91 - Pilonidal cyst without abscess Coding Level of Care Code Est Pt Level 3 (93615) Diagnoses Sebaceous cyst of left axilla L72.3 Sebaceous cyst of skin of left breast N60.82 Infected pilonidal cyst L05.91
== END 2024-04-28 14:53 | disposition home or self-care (01) ==
PROVIDERS: PCP Internal Medicine; Visit Provider Nurse Practitioner Acute Care
DX: L72.3 Sebaceous cyst (principal); N60.82 Other benign mammary dysplasias of left breast; L05.91 Pilonidal cyst without abscess

== ENCOUNTER → 2024-04-28 14:32 | Outpatient (BNVA) | payer OTHER, SELFPAY | PROVIDERS: PCP Internal Medicine; Visit Provider Nurse Practitioner Acute Care | DX: L72.3 Sebaceous cyst (principal); L05.91 Pilonidal cyst without abscess; N60.82 Other benign mammary dysplasias of left breast | CPT/HCPCS: 99212 ==

== ENCOUNTER 2024-06-13 15:12 | Outpatient (AMB) | payer OTHER, SELFPAY ==
--- NOTE | 2024-06-13 15:13 | A.OFFVIS_ITS ---
Vital Signs 3 06/13/24 15:23 Height 5 ft 2 in Weight 156 lb BMI 28.5 BP 117/59 L Blood Pressure Location Lt brachial Position Sitting Pulse 75 Intake Visit Reasons: left breast abscess Intake Note: Patient is seen in office for evaluation of a left breast abscess. Pt c/o: left cyst/boil in the left breast, had antbx twice went away for a week and came back, onset 2 wks, currently is red with no discharge, just finished antbx couple days ago L.OV: 02/17/22 (right breast & axilla) Motor Grader Rough Grade Required: No Glove Brusher: Glove Brusher Present Accompanied by: Self / Same As Patient Allergies adhesive tape Allergy (Intermediate, Verified 06/13/24 15:14) Blister egg Allergy (Unknown, Verified 06/13/24 15:14) Nausea lorazepam Adverse Reaction (Unknown, Verified 06/13/24 15:14) increased anxiety & anger Medication List - Last Reconciled 06/13/24 by Troy Macias MD albuterol sulfate 90 mcg/actuation (ProAir HFA) 2 puffs inhalation Q4-6H PRN ascorbate calcium (vitamin C) 500 mg PO DAILY clonazepam 0.25 mg PO DAILY PRN fluticasone propionate 110 mcg/actuation 1 puff inhalation Q12H hydrocortisone-pramoxine 1-1 % 1 appl [place] QID PRN ibuprofen 600 mg PO Q6H PRN mupirocin 2% 1 appl topical BID 5 days nicotine 1 patch transdermal DAILY nystatin 1 appl topical BID PRN rosuvastatin 5 mg PO 3XW 3 months sertraline 50 mg PO DAILY HPI Comments Details: 63-year-old female patient with a long history of hidradenitis and skin infections presenting with for new skin cysts in the left breast which occasionally have become red, painful with purulence discharge. She was placed on antibiotics on 2 occasions with some improvement in the size of the lesions while on the antibiotic. She now feels that the this have increased in size once again and was told to be evaluated by a surgeon. She denies any fever or chills. She would like to have the 4 lesions excised. [facility] Medical History Mixed urge and stress incontinence Generalized anxiety disorder Cigarette smoker motivated to quit Hidradenitis suppurativa of multiple sites Hx of major depression No vaccination-pt refuse Hemorrhoids with complication Erythema intertrigo Hemorrhoid thrombosis ADHD Depression, major, recurrent COVID-19 vaccination declined Dyslipidemia Refused influenza vaccine Auditory hallucinations Surgical History History of hemorrhoidectomy History of excision of epidermal inclusion cyst (10/24/21) H/O oophorectomy Family History Father Substance use disorder Mother Lung cancer Substance use disorder Maternal Grandmother Diabetes mellitus Brother Lung cancer Substance use disorder Mental health disorder Brother Substance use disorder Brother Substance use disorder Brother Substance use disorder Brother Substance use disorder Sister Substance use disorder Mental health disorder Son No problems noted. [facility] Alcohol intake: current Alcohol intake frequency: holidays/special occasions only Patient Tobacco Use Status: Former Tobacco user Tobacco use type: Cigarette Cigarette Packs Per Day: 0.5 Cigarettes Per Day: 7 e-Cigarette/Vaping Use: Never Used Second Hand Smoke Exposure: No service: No Current occupational status: unemployed Cognitive needs: No Hearing needs: No Vision needs: No Female Reproductive History Menstrual Age of Menarche: 16 Review of Systems Const All systems reviewed & are unremarkable except as noted in HPI and below Physical Exam Const General: no acute distress Nutritional Appearance: well nourished Orientation/consciousness: patient oriented x3 Limitations: no limitations HEENT Head: Yes normocephalic Neck Other: Multiple noninfected small epidermal inclusion cyst in the posterior neck with previous excision sites throughout the posterior neck. No evidence of acute infection at this time. Chest Other: Left breast with for areas of redness with underlying skin cysts in the medial breast mainly lower inner quadrant. See diagram below Chest/axillae images: 2 1. 0.5 cm raised epidermal inclusion cyst 2. Adjacent 0.5 cm raised epidermal inclusion cyst 3. 1 cm raised epidermal inclusion cyst 4. 1 cm raised epidermal inclusion cyst with red skin Skin Other: Warm, dry, no rashes Neuro General: patient oriented x3 Extrem General: Yes no clubbing, cyanosis or edema Assessment & Plan Assessment & Plan (1) Sebaceous cyst of breast: Code(s): N60.89 - Other benign mammary dysplasias of unspecified breast Category: Medical Qualifiers: Laterality: left Qualified Code(s): N60.82 - Other benign mammary dysplasias of left breast Plan 63-year-old female patient with a previously infected sebaceous cyst of the left breast x4. Patient has requested excision of these 4 lesions to prevent further infection. I reviewed the procedure, risks, and alternatives and she consents to excision of the left breast epidermal inclusion cyst x4. This will be scheduled as a short-stay surgery at her earliest convenience. Coding Level of Care Code New Pt Level 4 (73974) Diagnoses Sebaceous cyst of skin of left breast N60.82 Laterality: left
[2024-06-13 15:23] VITALS: BP 117/59; PULSE 75; BMI 28.5
== END 2024-06-13 15:36 | disposition home or self-care (01) ==
PROVIDERS: PCP Internal Medicine; Visit Provider Surgery
DX: N60.82 Other benign mammary dysplasias of left breast (principal)
CPT/HCPCS: 99204

== ENCOUNTER → 2024-06-13 15:12 | Outpatient (BNVA) | payer OTHER, SELFPAY | PROVIDERS: PCP Internal Medicine; Visit Provider Surgery | DX: N60.82 Other benign mammary dysplasias of left breast (principal) | CPT/HCPCS: 99202 ==

== ENCOUNTER 2024-07-21 08:47 | Outpatient (AMB) | payer OTHER, SELFPAY ==
--- NOTE | 2024-07-21 08:42 | MHC.PC.OV ---
Intake Visit Reasons: GLP-1 Medication Allergies adhesive tape Allergy (Intermediate, Verified 07/23/24 02:25) Blister egg Allergy (Mild, Verified 07/23/24 02:25) Nausea lorazepam Adverse Reaction (Intermediate, Verified 07/23/24 02:25) increased anxiety & anger Medication List - Last Reconciled 07/21/24 by Leda Al MD albuterol sulfate 90 mcg/actuation 2 puffs inhalation Q4-6H PRN ascorbate calcium (vitamin C) 500 mg PO DAILY cholecalciferol (vitamin D3) (Vitamin D3) 25 mcg PO QAM clonazepam 0.25 mg PO DAILY PRN coenzyme Q10 100 mg PO DAILY fluticasone propionate 110 mcg/actuation 1 puff inhalation Q12H hydrocortisone-pramoxine 1-1 % 1 appl MA QID PRN lamotrigine mg PO DAILY gvikygkkefvg-tgt-yare-FA-vit K 18 mg iron-400 mcg-25 mcg (One Daily Women's) 1 tab PO QAM mupirocin 2% 1 appl topical BID 5 days nicotine 1 patch transdermal DAILY nystatin 1 appl topical BID PRN rosuvastatin 5 mg PO 3XW 3 months Saccharomyces boulardii (Daily Probiotic (S. boulardii)) 250 mg PO BID sertraline 50 mg PO DAILY Tobacco use date assessed: 07/21/24 Dental Screening Dental Screen Date: 07/21/24 Did you have a dental visit in the last 12 months?: Yes Did you have a dental problem in the last 6 months where you did not have access to dental care?: No Was dental information given to patient?: Patient has dentist HPI GLP-1 Medication HPI Details 63-year-old lady with history hidradenitis suppurativa, here today requesting to be prescribed by a GLP 1 agonist as per recommendation by her surgeon. As per patient, she was told that they found GLP 1 agonist to be beneficial in preventing further outbreaks of her hidradenitis suppurativa lesions. She has been seen at [facility] dermatology and was receiving steroid injections in to her cysts which affords only temporary relief. [facility] Medical History Depression Nicotine dependence, cigarettes, uncomplicated Mixed urge and stress incontinence Generalized anxiety disorder Hidradenitis suppurativa of multiple sites Erythema intertrigo ADHD Dyslipidemia Auditory hallucinations Surgical History History of hemorrhoidectomy History of excision of epidermal inclusion cyst (10/24/21) H/O oophorectomy Family History Father Substance use disorder Mother Lung cancer Substance use disorder Maternal Grandmother Diabetes mellitus Brother Lung cancer Substance use disorder Mental health disorder Brother Substance use disorder Brother Substance use disorder Brother Substance use disorder Brother Substance use disorder Sister Substance use disorder Mental health disorder Son No problems noted. Social History Housing: Condominium Alcohol intake: current Alcohol intake frequency: holidays/special occasions only Patient Tobacco Use Status: Former Tobacco user Tobacco use type: Cigarette Cigarette Packs Per Day: 0.5 Cigarettes Per Day: 7 e-Cigarette/Vaping Use: Never Used Second Hand Smoke Exposure: No service: No Current occupational status: unemployed Cognitive needs: No Hearing needs: No Vision needs: No Female Reproductive History Menstrual Age of Menarche: 16 Questionnaire PHQ-9 Over the last 2 weeks, how often have you been bothered by any of the following problems? 1. Little interest or pleasure in doing things: not at all 2. Feeling down, depressed, or hopeless: not at all 3. Trouble falling or staying asleep, or sleeping too much: several days 4. Feeling tired or having little energy: several days 5. Poor appetite or overeating: not at all 6. Feeling bad about yourself - or that you are a failure or have let yourself or your family down: not at all 7. Trouble concentrating on things, such as reading the newspaper or watching television: not at all 8. Moving or speaking so slowly that other people could have noticed. Or the opposite - being so fidgety or restless that you have been moving around a lot more than usual: not at all 9. Thoughts that you would be better off or of hurting yourself in some way: not at all Total score: 2 Depression Screening Interpretation: Negative Depression Screening Done: Yes 13870 - PHQ-9 Billing: Yes Source: Developed by Drs. Bahman Titus, Sergio Devi and colleagues, with an educational radha from [employer]. Thrive Questionnaire Date Thrive assessed: 07/21/24 I am a: Patient What is your living situation today?: I have a steady place to live Within the past 12 months, did the food you bought not last and you didn't have the money to get more?: Never true Within the past 12 months, did you worry whether your food would run out before you got money to buy more?: Never true Do you have trouble paying for medicines?: No Do you have trouble getting transportation to medical appointments?: No Do you have trouble paying your heating and electricity bill?: No Do you have trouble taking care of your child, family member or friend?: No Do you have trouble with day-to-day activities such as bathing, preparing meals, shopping, managing finances, etc.?: No Are you currently unemployed and looking for a job?: No Are you interested in more education?: Yes Please select the resources that you would like help with: Housing/Usp Currently or been in a relationship where the following occur: No concerns reported THRIVE Score: 0 AUDIT C Alcohol Use Questionnaire (AUDIT-C) 1. How often do you have a drink containing alcohol?: Never 3. How often do you have six or more drinks on one occasion?: Never Total Score: 0 Score Reviewed/Action Taken: Yes ARCELIA-7 AMB Questionnaire ARCELIA-7 Date ARCELIA - 7 assessed: 01/07/24 Source: Developed by Drs. Bahman Titus, Gena Martinez, Sergio Ching and colleagues, with an educational radha from [employer]. Review of Systems Const Reports as per HPI ENT Reports no additional complaints Card Denies chest pain, Denies chest pain with activity, Denies rapid heart rate and Denies dyspnea Resp Denies cough and Denies dyspnea GI Reports no additional complaints Denies dysuria, Denies urinary incontinence, Denies urinary hesitancy and Denies urinary urgency Musc Reports no additional complaints Skin/Breast Reports as per HPI Neuro Reports no additional complaints Psych Reports as per HPI Endo Reports no additional complaints Lefty/Lymph Reports no additional complaints Aller/Immun Reports no additional complaints Physical exam (Primary Care) Tobacco/Smoking Status: Tobacco use Status Tobacco use date assessed 07/21/24 07/21/24 08:47 Patient Tobacco Use Status Former Tobacco user 07/21/24 08:47 Tobacco use type Cigarette 07/21/24 08:47 e-Cigarette/Vaping Use Never Used 07/21/24 08:47 Depression Screening Interpretation: Negative Thrive Assessment: Date of Thrive Assessment Date Thrive assessed 07/21/24 07/21/24 08:47 Currently or been in a relationship where the following occur: No concerns reported Telehealth Telehealth Telehealth Platform: [facility] Location of provider rendering services: practice address Location of patient: address on file Patient Identification confirmed using: Name, : Yes Telehealth method: video Patient verbally consented to treatment: Yes Patient verbally consented to billing insurance company: Yes Patient informed of any privacy concerns related to visit: Yes Minutes spent on Phone/Video with Pt.: 15 Coding Level of Care Code Tele Est Pt Level 3 (95272) Diagnoses Hidradenitis suppurativa of multiple sites L73.2 Additional Codes PHQ-9 - 81742 - PHQ-9 Billing: Yes ([id number]) Assessment & Plan Assessment & Plan (1) Hidradenitis suppurativa of multiple sites: Code(s): L73.2 - Hidradenitis suppurativa Category: Medical Plan: Explained to patient that and GLP 1 agonist is still not indicated for treatment or prevention of hidradenitis suppurativa lesions. Patient requesting for 2nd opinion with Dermatology, referral to [place] dermatology ordered. Patient also sent a prescription for mupirocin 2% nasal ointment to apply intranasally twice a day for 5 days. Orders: Referrals Dermatology Referral L73.2 - Hidradenitis suppurativa Medications: New mupirocin 2% apply small amount of ointment intranasally twice a day for 5 days 1 appl topical BID 22 grams 0RF L73.2 - Hidradenitis suppurativa
--- OUTSIDE RECORDS SUMMARY | 2024-07-21 09:09 | XMS_ITS | Data Portability ---
Author Organization [facility] Address [address] [place] [id number] Care Team Providers Care Mobile Application Architect Name Role Phone [facility] Referring Provider Assessment Encounter Date Assessment Date Assessment LastModified by Organization Details LastModified Time 04/17/2023 04/17/2023 I provided real -time medical direction via phone for this encounter, and was available for additional phone based assistance as needed. I have reviewed and agree with the Assessment and Plan as documented by the Manufacturing Engineer. Patient given the opportunity to ask questions. As per above , patient calls with COPD exacerbation and cough. Also has shortness of breath. She has stable vitals and is satting well on room air. She just finished an antibiotic course of 2 weeks of amoxicillin and clavulanic acid. She is using her ProAir inhaler appropriately. She denies any chest pain or shortness of breath. She does not have a productive cough. A- COPD exacerbation with cough, SOB / May have COPD asthma overlap syndrome P- Just completed Augmentin so will hold on abx, short course of Prednisone 40 mg po Qday times 5 days and Delsym for cough suppression as she can't take guanfacine We discussed the diagnostic uncertainty of home visits and the risk associated with this. In this case, the patient and I felt this to be an acceptable and reasonable amount of risk given the benefit of avoiding an ED visit. We discussed the need to seek care urgently/emergen tly in the setting of any new or worsening serious symptoms, particularly fever chills [email or web address] Not available 04/17/2023 21:48:47 05/28/2023 05/28/2023 I provided real -time medical direction via phone for this encounter, and was available for additional phone based assistance as needed. I have reviewed and agree with the Assessment and Plan as documented by the Manufacturing Engineer. Patient given the opportunity to ask questions. Advised also follow-up with PCP after the holiday weekend. If develops CP/severe SOB/turning blue/uncontrolle d n/v/d or black/bloody emesis or stool/ AMS/ syncope/ hi fever unresponsive to APAP to call 911- verbalized understanding of instructions [email or web address] Not available 05/28/2023 23:29:31 Plan of Treatment Reminders Order Date Submit Date Provider Last Modified By Organization Details Last Modified Time Details Appointments None recorded. Lab rapid SARS CoV 2 Ag, QL IA, respiratory specimen 2022 023 [email or web address], [phone], 23:30:39 Referral None recorded. Procedures None recorded. Surgeries None recorded. Imaging None recorded. Medication Orders prednisone 20 mg tablet 2022 023 [id number], [address] [place] [address], [id number], 3 23:30:40 Delsym 12 hour 30 mg/5 mL oral suspension, extended release 2022 023 [facility] [id number], [phone] [facility], [place], [address], 3 23:30:40 prednisone 20 mg tablet 2022 023 [id number] [address] [place] [address], [phone], 3 17:04:15 Delsym 12 hour 30 mg/5 mL oral suspension, extended release 2022 023 [id number], [address] [place] [address], [phone], 3 17:04:15 Patient TargetsNo targets recorded. Patient InstructionsNo instructions recorded. Reason for Referral None Reported. Results Created Date Observation Date Name Description Value Unit Range Abnormal Flag Note LastModifiedBy Organization Detail LastModifiedTime 05/28/20 23 05/28/2023 rapid SARS CoV 2 Ag, QL IA, respi rator y speci men rapid SARS CoV 2 Ag, QL IA, respiratory specimen negati ve Not Available [facility] - [facility] [address] [facility], [place], [phone], 05/28/2023 21:04:03 Result Notes None recorded. Medical Equipment None Reported. Allergies No known drug allergies Medications Name Sig Start Date Stop Date Status Note LastModified by Organization Details LastModified Time quetiapine 25 mg tablet TAKE 1 TABLET BY MOUTH TWICE A DAY DIRECTED active Not Available Not Available No t Available amoxicillin 500 mg capsule TAKE 1 CAPSULE BY MOUTH EVERY 8 HOURS UNTIL FINISHED active Not Available Not Available No t Available Delsym 12 hour 30 mg/5 mL oral suspension,e xtended release Take 5 mL every 12 hours by oral route as directed for 7 days. 2022 active Not Available Not Available Not Avai lable paroxetine 10 mg tablet TAKE 1 TABLET BY MOUTH EVERY DAY AT BEDTIME active Not Available Not Available No t Available nicotine 14 mg/24 hr daily transdermal patch APPLY 1 PATCH TRANSDERMAL LY DAILY active Not Available Not Available No t Available azithromycin 250 mg tablet TAKE 2 TABLETS BY MOUTH TODAY, THEN TAKE 1 TABLET DAILY FOR 4 DAYS DIRECTED active Not Available Not Available No t Available ibuprofen 800 mg tablet TAKE 1 TABLET BY MOUTH EVERY 6 HOURS NEEDED FOR PAIN active Not Available Not Available No t Available methylphenid ate 10 mg tablet TAKE 1 TABLET BY MOUTH EVERY DAY IN THE MORNING active Not Available Not Available No t Available prednisone 20 mg tablet TAKE 2 TABLETS EVERY DAY BY ORAL ROUTE WITH MEAL(S) FOR 4 DAYS. active Not Available Not Available No t Available clonazepam 0.5 mg tablet TAKE ONE TABLET DAILY NEEDED FOR ANXIETY. MAY USE UP TO 20 TIMES PER MONTH active Not Available Not Available No t Available doxepin 10 mg capsule TAKE 3 CAPSULES BY MOUTH AT BEDTIME active Not Available Not Available No t Available olanzapine 2.5 mg tablet TAKE 1 TABLET BY MOUTH EVERY DAY AT BEDTIME FOR 30 DAYS active Not Available Not Available No t Available quetiapine 100 mg tablet TAKE 1 TABLET BY MOUTH EVERYDAY AT BEDTIME active Not Available Not Available No t Available oxycodone-ac etaminophen 5 mg-325 mg tablet TAKE 1 TABLET BY MOUTH EVERY 4 TO 6 HOURS NEEDED FOR PAIN active Not Available Not Available No t Available amoxicillin 875 mg tablet TAKE 1 TABLET BY MOUTH EVERY 12 HOURS active Not Available Not Available No t Available nystatin 100,000 unit/gram topical cream APPLY TO AFFECTED AREA TWICE A DAY NEEDED FOR RASH active Not Available Not Available No t Available docusate sodium 100 mg capsule TAKE 1 CAPSULE BY MOUTH TWICE A DAY active Not Available Not Available No t Available mupirocin 2 % topical ointment 1 APPL TOPICALLY 2 TIMES A DAY FOR 5 DAYS active Not Available Not Available N ot Available ibuprofen 600 mg tablet TAKE 1 TAB (600 MG) ORALLY EVERY 6 HOURS NEEDED FOR PAIN active Not Available Not Available No t Available albuterol sulfate HFA 90 mcg/actuatio n aerosol inhaler INHALE 2 PUFFS EVERY 4 TO 6 HOURS NEEDED FOR SHORTNESS OF BREATH OR FOR WHEEZE active Not Available Not Available No t Available hydrocortiso ne-pramoxine 1 %-1 % rectal cream active Not Available Not Available Not Available atomoxetine 60 mg capsule TAKE 1 CAPSULE BY MOUTH EVERY DAY DIRECTED FOR 30 DAYS active Not Available Not Available Not Available bupropion HCl XL 150 mg 24 hr tablet, extended release TAKE 1 TABLET BY MOUTH EVERY MORNING active Not Available Not Available No t Available mirtazapine 7.5 mg tablet TAKE 1 TABLET BY MOUTH EVERY DAY AT BEDTIME FOR 30 DAYS active Not Available Not Available No t Available Flovent HFA 110 mcg/actuatio n aerosol inhaler INHALE 1 PUFF INTO LUNGS EVERY 12 HOURS WITH SPACER active Not Available Not Available Not Available Nyamyc 100,000 unit/gram topical powder 1 APPL TOPICALLY 2 TIMES A DAY NEEDED FOR RASH active Not Available Not Available No t Available atomoxetine 100 mg capsule TAKE 1 CAPSULE BY MOUTH EVERY DAY active Not Available Not Available No t Available sodium fluoride 1.1 %-potassium nitrate 5 % dental paste USE DIRECTED ON PACKAGE active Not Available Not Available No t Available quetiapine 50 mg tablet TAKE 1 TABLET BY MOUTH TWICE A DAY DIRECTED active Not Available Not Available No t Available quetiapine ER 50 mg tablet,exten ded release 24 hr TAKE 1 TABLET BY MOUTH EVERY DAY AT BEDTIME FOR MOOD active Not Available Not Available No t Available lurasidone 20 mg tablet TAKE 1 TABLET BY MOUTH EVERY DAY IN THE EVENING FOR 30 DAYS active Not Available Not Available No t Available Vraylar 1.5 mg capsule TAKE 1 CAPSULE BY MOUTH EVERY DAY DIRECTED FOR 30 DAYS active Not Available Not Available Not Available Vitals Date Recorded Body weight Oxygen saturation Oxygen saturation in Arterial blood by Pulse oximetry Body temperature Respiratory rate Heart rate Body height Systolic blood pressure Diastolic blood pressure Provider Name and Address Organization Details Last Updated DateTime 3 39673.3 52 g 97 % 97 % 98.3 [degF] 20 /min 72 /min 157.48 cm 138 mm[Hg] 80 mm[Hg] Not Available [facility] 3 17:31:15 Date Recorded Heart rate Respiratory rate Body temperature Oxygen saturation Oxygen saturation in Arterial blood by Pulse oximetry Systolic blood pressure Diastolic blood pressure Provider Name and Address Organization Details Last Updated DateTime 3 90 /min 18 /min 99.5 [degF] 94 % 94 % 131 mm[Hg] 84 mm[Hg] Not Available [facility] [employer] [facility] [employer] 3 16:50:54 Date Recorded Body weight Heart rate Respiratory rate Body height Oxygen saturation Oxygen saturation in Arterial blood by Pulse oximetry Body temperature Systolic blood pressure Diastolic blood pressure Provider Name and Address Organization Details Last Updated DateTime 3 67831.7 2 g 87 /min 18 /min 157.48 cm 96 % 96 % 97.7 [degF] 130 mm[Hg] 70 mm[Hg] Not Available [facility] [employer] 3 20:57:50 Social History None recorded. Functional Status None recorded. Mental Status None recorded. Family History Nothing Reported. Medical History No medical history recorded. Gynecological HistoryNo gynecological history recorded. Obstetrics History GPAL:G 0 P 0 0 0 0 Past Encounters Encounter ID Performer Location Encounter Start Date Encounter Closed Date Diagnosis/Indication Diagnosis SNOMED-CT Code Diagnosis ICD10 Code Diagnosis Note [id number] Chikis Gonzalez MD [facility] [address] [place] [phone] 04/05/2023 17:31:13 04/06/2023 11:29:43 Dyspnea 556663016 R06.00 I provided real -time medical direction via phone for this encounter, and was available for additional phone based assistance as needed. I have reviewed and agree with the Assessment and Plan as documented by the Manufacturing Engineer. Patient given the opportunit y to ask questions. 62 yo F w/ underlying COPD and schizophre davian called w/ c/o MOYA for the last week with some associated cough and palpitatio ns. Notes that she has been using albuterol inhaler quite frequently and that the palpitatio ns 2/2 beta agonism make her more anxious. Exam unremarkab le- no increased WOB, lungs CTABL no w/r/r, SpO2 wnl at rest on RA and on ambulation . Covid negative. pt endorsing that she thinks her anxiety caused her dyspnea the past several days and that sx overall improved today since she reduced use of albuterol inhaler. [id number] Donya Farrell MD [facility] [address] [place] [phone] 04/17/2023 16:50:53 04/19/2023 09:53:43 Respiratory tract congestion and cough [id number] R05.9 [id number] Elenita Iyer MD [facility] [address] [place] [phone] 05/28/2023 20:57:44 06/01/2023 12:03:10 Cough [id number] R05.9 Patient requesting azithromyc in and prednisone . She reports her PCP always gives her azithromyc in. She is not a diabetic. Advise she has no fever, clear lungs, not producing darkly colored sputum thus antibiotic s are contraindi cated. Advised should discuss with PCP. Will prescribe a short course of prednisone as I believe from looking at record review there is some history of pulmonary disease/as thma. Patient requesting cough syrup. Stated the Delsym she was given in March helpedAdvi sed to continue using her albuterol MDI 2 puffs 4 times a day Health Concerns Section Related Observation LastModified by Organization Detai ls LastModified Time None Recorded Concern Status LastModified by Organization Details LastModified Time None Recorded Advance Directives Directive None Recorded Payers Encounter Date Sequence Insurance Name Policy Number Policy Glover Covered Member ID Glover Member ID Guarantor Name 04/05/2023 1 [facility] - DOS ON OR AFTER 2022 - DUAL ELIGIBLE - [employer]LTER OPTIONS AND ONE CARE (MEDICARE REPLACEMENT/ADV ANTAGE - HMO) Karli Victor [id number] Karli Victor 04/17/2023 1 [facility] - DOS ON OR AFTER 2022 - DUAL ELIGIBLE - [employer]LTER OPTIONS AND ONE CARE (MEDICARE REPLACEMENT/ADV ANTAGE - HMO) Karli Victor [id number] Karli Victor 05/28/2023 1 [facility] - DOS ON OR AFTER 2022 - DUAL ELIGIBLE - [employer] OPTIONS AND ONE CARE (MEDICARE REPLACEMENT/ADV ANTAGE - HMO) Karli Victor [id number] Karli Victor Notes Date Note Type Note Provider Name and Address Organization Details Recorded Time 04/05/2023 text/html [facility] Nursing Assessment: Chief Complaints: Cough PMH: Severe Persistent Mental Illness (SPMI) Allergies: No Known Comments: Requesting visit for cough and shortness of breath for the last week. Speaking full sentences. Increased fatigue. Denies fevers. Tested negative for Covid. Taking OTC cough/decongestion medication. ................... ................... ................... ................... ................... ................... ................... ........ Manufacturing Engineer Note From Sha Davies: Dispatched to above address for URI shortness of breath for 1 week. Patient 62 y/o F, ambulating around apartment with normal gait unassisted, AOX4, airway patent, speaking in full sentences, good color, in no apparent distress, slightly anxious. Patient states she has had shortness of breath and anxiety for a little over 1 week, went to urgent care but left before being seen due to long wait and anxiety. Reports she took an at home Covid-19 test 4 days ago with negative result. Patients vital signs checked, all WNL. Lung sounds clear all arizmendi, no signs of distress or respiratory compromise. Covid-19 tests preformed with negative result. After speaking with patient further she reports she is out of her anxiety medication and having trouble refilling prescription. Patient denies any additional complaints or problems at this time. Patient advised to use MDI as prescribed, continue fluid intake and get rest. Spoke with [facility] physician who requests and ambulatory assessment. Assessment preformed, patient was easily able to walk over 50 feet without assistance or any difficulty, no change in respiratory status. Patient states she feels less anxious after assessment, agrees with advice given. SC12 cleared scene. EOR. ................... ................... ................... ................... ................... ................... ................... ........ Disposition: Fulfilled Chikis Gonzalez MD [address] [place] [address],[address] [facility], [place], [phone], [employer] 04/05/2023 23:19:25 04/17/2023 text/html [facility] Nursing Assessment: Chief Complaints: Shortness of Breath/Dyspnea PMH: Severe Persistent Mental Illness (SPMI) Allergies: No Known Comments: Finished Amoxicillin 2 days ago for a sinus infection. Increased dyspnea with increased PRN Proair inhaler use. History of emphysema. Speaking full sentences. Donya Farrell MD [address] [place] [address],[address], [place], [phone], [employer] 04/17/2023 21:48:51 05/28/2023 text/html [facility] Nurse Triage Notes (Jeanne Lockett): Reason For Request: URI / sob Chief Complaints: Shortness of Breath/Dyspnea PMH: Severe Persistent Mental Illness (SPMI) Allergies: Unknown Comments: Verified identity / address Member c/o sob that has increased for 2 days. Member has no h/o asthma. But has had an episode like this in the past, she was placed on steroids and an antibiotic. Member is awaiting an sales and marketing administrator appt. Member has an inhaler but not working . Member has a cough with tightness when she breaths, sputum is thick and white. Member is not taking anything OTC RED FLAGS when to call 911 ................... ................... ................... ................... ................... ................... ................... ........ Manufacturing Engineer Note From Sha Davies: 62yo F c/o chronic SOB. Pt reports father sick back Dec and in Jan. She reports thinking she might have picked something up then and since then as been on multiple rounds of antibiotics (azithromycin) and prednisone. Pt reports breathing got harder today. She attempted to go to a walk in clinic, but there as not MD and was sent home. Pt reports frequent urinations Pt reports she doesn't get to the point of feeling dizzy, weak, or lightheaded bc she prevents herself before she exhaust herself. Lungs are clear, pt sts she feels congested, and reports white foamy phlegm, which is hard to cough up. Pt denies fever. MD consult suggests Covid test - NEG, prednisone for [address], DM, and rest. ................... ................... ................... ................... ................... ................... ................... ........ Disposition: FulfilledSEGMD: Patient denies sinus congestion or sore throat. She denies polydipsia, dysuria, hematuria, abdominal pain/nausea vomiting diarrhea. She has no fever. She was last seen by our service on 04/17 and given prednisone for 4 days and Delsym. The [facility] was questioning COPD/asthma overlap but she denies a history of COPD or asthma. She does have an inhaler - has plenty of albuterol in it and she is using it 4-5 times a day.. Elenita Iyer MD [address] [facility],[address], [place], [phone], [employer] 05/28/2023 23:31:23 OBGyn Episode No OBEpisode recorded.
== END 2024-07-21 11:11 | disposition home or self-care (01) ==
LOC: HO.HMCC 08:47
PROVIDERS: PCP Internal Medicine; Visit Provider Internal Medicine
DX: L73.2 Hidradenitis suppurativa (principal)

== ENCOUNTER → 2024-07-21 08:47 | Outpatient (BNVA) | payer OTHER, SELFPAY | PROVIDERS: PCP Internal Medicine; Visit Provider Internal Medicine | DX: L73.2 Hidradenitis suppurativa (principal) | CPT/HCPCS: 96127 ==

== ENCOUNTER 2024-07-24 11:15 | Day surgery (SDC) | payer OTHER, SELFPAY ==
[2024-07-20 09:16] VITALS: BMI 28.5
[2024-07-24] VITALS (7 sets, daily range): BP systolic 115–129; BP diastolic 64–73; PULSE 57–82; RESP 10–18; TEMP 36.1–36.8; O2SAT 8–99; BMI 28.3
[2024-07-24] MEDS: Lactated Ringers 1,000 ML 100 ML IVCONT (12:12)
--- NOTE | 2024-07-24 12:21 | MHC.SHP ---
Pre-Procedural Eval Section A - 24 Hr Update-Section A only Date of Service: 07/24/24 The patient is an INPATIENT: No Changes since office visit: Yes Patient answered all questions; No Cold of Flu in the past 2 weeks, No New Medical Problems and No Changes in Medication The patient has been examined within 24 hours of the surgical procedure. The History & Physical has been completed within 30 days and I have reviewed it.: No Section B - Complete if H&P > 30 days Chief Complaint: Skin lesions of left breast x 4 Details of Present Illness: Skin lesions are less red currently but she does not itchiness in the skin Relevant Family History (Specify if Yes): No Relevant Social History: None Present Medications: None Medical History: No relevant PMH History of Previous Operations: No relevant previous surgery Allergies: Allergies Allergy/AdvReac Type Severity Reaction Status Date / Time adhesive tape Allergy Intermediate Blister Verified 07/24/24 11:47 egg Allergy Mild Nausea Verified 07/24/24 11:47 lorazepam AdvReac Intermediate increased Verified 07/24/24 11:47 anxiety & anger Review of Systems Sugical H&P ROS: Negative: Constitution, Cardiovascular, Respiratory, Allergic/Immunologic, Gastrointestinal, Genitourinary, Musculoskeletal and Integumentary Exam Surgical H&P Exam: Normal: Heart, Normal: Lungs, Normal: Extremities, Normal: Abdomen and Normal: Skin Plan Diagnosis/Plan: Unchanged I have reviewed the history and physical and performed a pertinent physical examination on my patient. No changes have occurred unless specified. Time Spent With Patient Time: Total time managing care of this patient today ____ minutes.
--- NOTE | 2024-07-24 12:38 | P.CONAN_ITS ---
HPI - Anesthesia Eval Consult details Narrative: 63 yo female patient for Excision of Left breast cysts PMFSH Active Problems Active Problems: All Active Problems Sebaceous cyst of breast (Acute) Infected pilonidal cyst (Acute) Sebaceous cyst of skin of left breast (Acute) Sebaceous cyst of left axilla (Acute) No vaccination-pt refuse (Acute) COVID-19 vaccination declined (Acute) Vitamin D deficiency (Acute) Refused influenza vaccine (Acute) Nicotine dependence, cigarettes, uncomplicated (Acute)- quit smoking 6 weeks ago Mixed urge and stress incontinence (Acute) Generalized anxiety disorder (Acute) Hidradenitis suppurativa of multiple sites (Acute) Dyslipidemia (Acute) Past Medical History Medical History Depression Nicotine dependence, cigarettes, uncomplicated Mixed urge and stress incontinence Generalized anxiety disorder Hidradenitis suppurativa of multiple sites Erythema intertrigo ADHD Dyslipidemia Auditory hallucinations Family History Family History Father Substance use disorder Mother Lung cancer Substance use disorder Maternal Grandmother Diabetes mellitus Brother Lung cancer Substance use disorder Mental health disorder Brother Substance use disorder Brother Substance use disorder Brother Substance use disorder Brother Substance use disorder Sister Substance use disorder Mental health disorder Son No problems noted. Family history of problems with anesthesia: No Surgical History Surgical History H/O Spinal surgery History of hemorrhoidectomy History of excision of epidermal inclusion cyst (10/24/21) H/O oophorectomy History of Problems with Anesthesia: No Social History Social History Housing: Condominium Are you a primary acute care physician to a significant other at home: No Do you presently have visiting nurse or other home services: No Alcohol intake: current Alcohol intake frequency: does not drink Patient Tobacco Use Status: Former Tobacco user Tobacco use type: Cigarette Cigarette Packs Per Day: 0.5 Cigarettes Per Day: 7 e-Cigarette/Vaping Use: Never Used Second Hand Smoke Exposure: No service: No Current occupational status: unemployed Cognitive needs: No Hearing needs: No Vision needs: No Meds Allergies Allergy/AdvReac Type Severity Reaction Status Date / Time adhesive tape Allergy Intermediate Blister Verified 07/24/24 11:47 egg Allergy Mild Nausea Verified 07/24/24 11:47 lorazepam AdvReac Intermediate increased Verified 07/24/24 11:47 anxiety & anger Active Medications: Current Medications Albuterol Sulfate (Albuterol Sulfate (0.083%) 2.5 Mg/3 Ml Vial.Neb) 2.5 mg INHALE ONCE PRN PRN Reason: Shortness of Breath/Wheezing Lactated Ringer's (Lr) 1,000 mls @ 100 mls/hr IVCONT .Q10H [facility] Last Admin: 07/24/24 12:12 Dose: 100 mls/hr Lactated Ringer's (Lr) 1,000 mls @ 100 mls/hr IVCONT .Q10H [facility] Home Medications ?Medication ?Instructions ?Recorded ?Confirmed ?Last Taken ?Type clonazepam 0.5 mg tablet 0.25 mg PO DAILY PRN Anxiety 09/02/22 07/24/24 Unknown History ascorbate calcium (vitamin C) 500 500 mg PO DAILY 12/13/23 07/24/24 Unknown History mg tablet albuterol sulfate 90 mcg/actuation 2 puff inhalation Q4-6H PRN 07/20/24 07/24/24 Unknown History aerosol inhaler wheezing Saccharomyces boulardii 250 mg 250 mg PO BID 07/21/24 07/24/24 Unknown History capsule (Daily Probiotic (S. boulardii)) cholecalciferol (vitamin D3) 25 25 mcg PO QAM 07/21/24 07/24/24 Unknown History mcg (1,000 unit) tablet (Vitamin D3) coenzyme Q10 100 mg capsule 100 mg PO DAILY 07/21/24 07/24/24 Unknown History lamotrigine 25 mg tablet 25 mg PO DAILY 07/21/24 07/24/24 07/24/24 History multivit with minerals-iron 18 1 tab PO QAM 07/21/24 07/24/24 Unknown History mg-folic ac 400 mcg-vit K 25 mcg tablet (One Daily Women's) Exam Height,Weight and Vital Signs: Height 5 ft 2 in Weight 70.3 kg Last Vital Signs Temp 98.3 F 07/24/24 12:02 Pulse 82 07/24/24 12:02 Resp 16 07/24/24 12:02 BP 123/64 07/24/24 12:02 Pulse Ox 95 07/24/24 12:02 O2 Del Method Room Air 07/24/24 12:02 Airway Mallampati Class: II TM Dist: >3cm Neck ROM: Full Loose/Missing/Broken Teeth: Yes (Missing molars. Denies broken or loose teeth) Heart: RRR Lungs: CTAB. Diminished Assessment and Plan Assessment Anesthesia Assessment: Anesthesia Plan Discussed and Chart Reviewed Final Anesthetic Review Family History of Problems with Anesthesia: No History of Problems with Anesthesia: No NPO: Yes ASA Class: II Final Preanesthetic Review: No Changes in Pt Med Stat, Meds/Allgs Chart Reviewed, Consent Obtained/Reviewed and Anes Risks/Benef Reviewed Patient Risk: Low Procedure Risk: Low Assessment/Block/Sedation in SS: Assess/Block/Sedation-SS Anesthetic Plan Anesthetic Plan: GA Disposition: Standard PACU
--- NOTE | 2024-07-24 13:15 | W.PM.OPN ---
Operative Note Operative Note Date of Service: 07/24/24 Narrative: Preoperative diagnosis: Epidermal inclusion cyst x4 left breast Postoperative diagnosis: Same Procedure: Excision of epidermal inclusion cyst x4 left breast Surgeon: Troy Macias MD Special Distribution Clerk: Merly Draper PA-C Anesthesia: General LMA Indications for procedure: 63-year-old female patient with previous history of multiple infections of the breast presenting today for excision of four previously infected epidermal inclusion cyst located in the left breast Operative findings: Minimally red epidermal lesions, 2 located in the medial left breast 1 in the mid breast and a 4th located below the inframammary crease Specimen: Epidermal inclusion cyst left breast Estimated blood loss: 2 mL Complications: None Procedure details: Patient was brought to the OR and placed in a supine position. After administering general anesthesia the patient's left breast was prepped with ChloraPrep and draped in a sterile fashion. A surgical time-out was called the consent confirmed. Patient received preoperative antibiotics and Venodyne boots were in place. Local anesthesia was infiltrated around to the previously marked lesions. The 1st lesion included to closely adjacent cysts and was included in 1 specimen. This was located in the medial left breast in the lower inner quadrant. An elliptical incision was made with a scalpel and carried out through subcutaneous tissue. The lesion was excised and sent to pathology for further examination. Hemostasis was assured using electrocautery. Next attention was directed to the lower chest wall below the inframammary crease at the midclavicular line. Again local was infiltrated around the lesion an elliptical incision made with a scalpel. The lesion was completely excised and sent to pathology for further examination. Hemostasis was assured using electrocautery. Attention was then directed to the final lesion in the mid lower breast left side. Again local was infiltrated around the lesion an elliptical incision made with a scalpel. The lesion was completely excised and sent to pathology for further examination. Hemostasis was assured using electrocautery. Skin was then closed in all 3 incisions using interrupted 4-0 nylon sutures. Sterile dressings consisting of 2 x 2 gauze and Tegaderm were then applied. The patient tolerated the procedure well. Sponge, instrument, and needle counts reported as correct. The patient was transferred to PACU in stable condition.
== END 2024-07-24 14:30 | disposition home or self-care (01) ==
PROVIDERS: PCP Internal Medicine; Visit Provider Surgery
PROC: (CPT 11401; principal; 2024-07-24 13:00)
DX: L72.0 Epidermal cyst (principal); L73.2 Hidradenitis suppurativa; F32.A Depression, unspecified; F41.1 Generalized anxiety disorder; F90.9 Attention-deficit hyperactivity disorder, unspecified type; E78.5 Hyperlipidemia, unspecified; R44.0 Auditory hallucinations; Z79.899 Other long term (current) drug therapy; Z79.1 Long term (current) use of non-steroidal anti-inflammatories (NSAID); Z91.012 Allergy to eggs; F17.210 Nicotine dependence, cigarettes, uncomplicated; Z56.0 Unemployment, unspecified
CPT/HCPCS: 11401; 11404 ×2; 88304; J0131; J0690; J1100; J2003; J2250; J2405; J2704; J2795; J3010

== ENCOUNTER → 2024-07-24 11:15 | Outpatient (BNV) | payer OTHER, SELFPAY | PROVIDERS: PCP Internal Medicine; Visit Provider Surgery | DX: L72.0 Epidermal cyst (principal) | CPT/HCPCS: 11401; 11402 ==

== ENCOUNTER 2024-08-03 08:59 | Outpatient (AMB) | payer OTHER, SELFPAY ==
--- NOTE | 2024-08-03 09:10 | A.OFFVIS_ITS ---
Vital Signs 3 08/03/24 09:16 Height 5 ft 2 in Weight 155 lb 2 oz BMI 28.4 BP 124/65 Blood Pressure Location Lt brachial Position Sitting Pulse 77 Intake Visit Reasons: S/P exc. Lt breast skin cysts x4 Intake Note: Patient is seen in office for post op assessment post excision of epidermal inclusion cyst x4 left breast. Pt c/o: denies any concerns, healing as expected, sutures area dry and clean, no infection surgery:07/24/24 Brush Polisher Required: No Bicycle Subassembler: Bicycle Subassembler Present Accompanied by: Self / Same As Patient Allergies adhesive tape Allergy (Intermediate, Verified 08/03/24 09:11) Blister egg Allergy (Mild, Verified 08/03/24 09:11) Nausea lorazepam Adverse Reaction (Intermediate, Verified 08/03/24 09:11) increased anxiety & anger HPI Comments Details: 63-year-old female patient with a long history of hidradenitis and skin infections presenting with for new skin cysts in the left breast which occasionally have become red, painful with purulence discharge. She was placed on antibiotics on 2 occasions with some improvement in the size of the lesions while on the antibiotic. She underwent excision of the 4 lesions on 07/24/2024. Pathology revealed epidermal inclusion cyst with no evidence of malignancy. [facility] Medical History Depression Nicotine dependence, cigarettes, uncomplicated Mixed urge and stress incontinence Generalized anxiety disorder Hidradenitis suppurativa of multiple sites Erythema intertrigo ADHD Dyslipidemia Auditory hallucinations Surgical History History of excision of epidermal inclusion cyst (07/24/24) H/O Spinal surgery History of hemorrhoidectomy History of excision of epidermal inclusion cyst (10/24/21) H/O oophorectomy Family History Father Substance use disorder Mother Lung cancer Substance use disorder Maternal Grandmother Diabetes mellitus Brother Lung cancer Substance use disorder Mental health disorder Brother Substance use disorder Brother Substance use disorder Brother Substance use disorder Brother Substance use disorder Sister Substance use disorder Mental health disorder Son No problems noted. Social History Housing: Condominium Are you a primary medicare interviewer to a significant other at home: No Do you presently have visiting nurse or other home services: No Alcohol intake: current Alcohol intake frequency: does not drink Patient Tobacco Use Status: Former Tobacco user Tobacco use type: Cigarette Cigarette Packs Per Day: 0.5 Cigarettes Per Day: 7 e-Cigarette/Vaping Use: Never Used Second Hand Smoke Exposure: No service: No Current occupational status: unemployed Cognitive needs: No Hearing needs: No Vision needs: No Female Reproductive History Menstrual Age of Menarche: 16 Physical Exam Const General: no acute distress and well developed Nutritional Appearance: well nourished Orientation/consciousness: patient oriented x3 Chest Other: Incisions in the left breast are clean, dry, and intact without redness or discharge. Sutures removed and wounds found to be well healed. Chest/axillae images: 2 1. 2. 3. Resp Effort & Inspection: normal respiratory effort Back/Spine/Pelvis Back/spine/pelvis image: 2 1. Small tender area right buttock adjacent to anal opening. No erythema or fluctuance appreciated. No definite cyst palpable. Neuro General: patient oriented x3 Extrem General: No edema Assessment & Plan Assessment & Plan (1) Sebaceous cyst of skin of left breast: Code(s): N60.82 - Other benign mammary dysplasias of left breast Category: Medical Plan 63-year-old female patient status post excision of 4 epidermal inclusion cysts of the left breast and chest wall. She tolerated the procedure well the wounds are healing nicely. She should follow up as needed. Patient asked to have an area of her anal skin evaluated for possible new cyst. She notes some tenderness in this location however on examination no definite inclusion cyst or abscess is identified. I recommended warm soaks and continued Hibiclens scrub. She should follow up as needed. Coding Level of Care Code Global (64774) Diagnoses Sebaceous cyst of skin of left breast N60.82
[2024-08-03 09:16] VITALS: BP 124/65; PULSE 77; BMI 28.4
== END 2024-08-03 09:31 | disposition home or self-care (01) ==
PROVIDERS: PCP Internal Medicine; Visit Provider Surgery
DX: N60.82 Other benign mammary dysplasias of left breast (principal)
CPT/HCPCS: 99024

== ENCOUNTER → 2024-08-03 08:59 | Outpatient (BNVA) | payer OTHER, SELFPAY | PROVIDERS: PCP Internal Medicine; Visit Provider Surgery | DX: Z09 Encounter for follow-up examination after completed treatment for conditions other than malignant neoplasm (principal); Z87.2 Personal history of diseases of the skin and subcutaneous tissue; Z98.890 Other specified postprocedural states | CPT/HCPCS: 99212 ==

== ENCOUNTER 2024-09-05 12:43 | Outpatient (AMB) | payer OTHER, SELFPAY ==
--- NOTE | 2024-09-05 12:44 | A.OFFVIS_ITS ---
Vital Signs 3 09/05/24 13:06 Height 5 ft 2 in Weight 154 lb 5.177 oz BMI 28.2 BP 110/72 Blood Pressure Location Lt brachial Position Sitting Intake Visit Reasons: mult cysts, 2 hip,1 inner thigh (R), 1 (L) thigh Intake Note: Patient is seen in office for evaluation of multiple skin cyst. Pt c/o: admits to cyst, one in the hip, one stomach rt, one in the inner right thigh, rt side of neck, back of the neck, would like to have them surgically removed, some are itchy Chief Jailer Required: No Accompanied by: Self / Same As Patient Allergies adhesive tape Allergy (Intermediate, Verified 08/03/24 09:11) Blister egg Allergy (Mild, Verified 08/03/24 09:11) Nausea lorazepam Adverse Reaction (Intermediate, Verified 08/03/24 09:11) increased anxiety & anger Medication List - Last Reconciled 09/05/24 by Troy Macias MD albuterol sulfate 90 mcg/actuation 2 puffs inhalation Q4-6H PRN ascorbate calcium (vitamin C) 500 mg PO DAILY chlorhexidine gluconate 4% (Hibiclens) 1 appl topically every 2-3 days, in shower lather entire body and leave on for one minute before rinsing. 1 month cholecalciferol (vitamin D3) (Vitamin D3) 25 mcg PO QAM clonazepam 0.25 mg PO DAILY PRN coenzyme Q10 100 mg PO DAILY fluticasone propionate 110 mcg/actuation 1 puff inhalation Q12H hydrocortisone-pramoxine 1-1 % 1 appl VT QID PRN lamotrigine 25 mg PO DAILY [id number] K 18 mg iron-400 mcg-25 mcg (One Daily Women's) 1 tab PO QAM mupirocin 2% 1 appl topical BID 5 days nicotine 1 patch transdermal DAILY nystatin 1 appl topical BID PRN oxycodone 5 mg PO Q6H PRN rosuvastatin 5 mg PO 3XW 3 months Saccharomyces boulardii (Daily Probiotic (S. boulardii)) 250 mg PO BID sertraline 50 mg PO DAILY HPI Comments Details: 63-year-old female returning with several new painful sebaceous cyst including 2 cyst in the posterior neck, both the left and right side. She reports that the right side and causes more pain and feels larger. She also has a painful cyst of the right lower quadrant abdomen as well as right lateral thigh and right upper inner thigh all of which are red and painful. The inner thigh lesion causing discomfort especially when walking when it rubs against her clothing. She has requested excision of all 5 symptomatic lesions. She recently underwent excision of 4 lesions around the left breast and tolerated this well. Her hidradenitis has been relatively quiet with the use of Hibiclens. [facility] Medical History Depression Nicotine dependence, cigarettes, uncomplicated Mixed urge and stress incontinence Generalized anxiety disorder Hidradenitis suppurativa of multiple sites Erythema intertrigo ADHD Dyslipidemia Auditory hallucinations Surgical History History of excision of epidermal inclusion cyst (07/24/24) H/O Spinal surgery History of hemorrhoidectomy History of excision of epidermal inclusion cyst (10/24/21) H/O oophorectomy Family History Father Substance use disorder Mother Lung cancer Substance use disorder Maternal Grandmother Diabetes mellitus Brother Lung cancer Substance use disorder Mental health disorder Brother Substance use disorder Brother Substance use disorder Brother Substance use disorder Brother Substance use disorder Sister Substance use disorder Mental health disorder Son No problems noted. Social History Housing: Condominium Are you a primary healthcare management consultant to a significant other at home: No Do you presently have visiting nurse or other home services: No Alcohol intake: current Alcohol intake frequency: does not drink Patient Tobacco Use Status: Former Tobacco user Tobacco use type: Cigarette Cigarette Packs Per Day: 0.5 Cigarettes Per Day: 7 e-Cigarette/Vaping Use: Never Used Second Hand Smoke Exposure: No service: No Current occupational status: unemployed Cognitive needs: No Hearing needs: No Vision needs: No Female Reproductive History Menstrual Age of Menarche: 16 Review of Systems Const All systems reviewed & are unremarkable except as noted in HPI and below Physical Exam Const General: no acute distress and well developed Nutritional Appearance: well nourished Orientation/consciousness: patient oriented x3 Neck Neck images: 2 1. 1 cm epidermal inclusion cyst (sebaceous cyst) posterior left neck. No fluctuance noted. No erythema in the overlying skin 2. 1 cm epidermal inclusion cyst posterior right neck. No fluctuance noted. No erythema in the overlying skin Resp Effort & Inspection: normal respiratory effort GI Abdomen image: 2 1. 1 cm raised hard and slightly reddened epidermal inclusion cyst, tender to palpation. No fluctuance to palpation. Neuro General: patient oriented x3 Extrem General: No edema Upper/lower leg/hip images: 2 1. 1 cm epidermal inclusion cyst lateral thigh, tender to palpation with reddened skin, no fluctuance to palpation 2. 1.5 cm epidermal inclusion cyst upper inner thigh with reddened skin, tender to palpation, no fluctuance. Assessment & Plan Assessment & Plan (1) Sebaceous cyst: Code(s): L72.3 - Sebaceous cyst Category: Medical Plan 63-year-old female patient with a long history of infected sebaceous cyst presenting with complaints of several painful lesions involving the posterior neck right lower quadrant abdomen and right thigh. A total of 5 lesions are identified. Patient has requested excision of all 5 lesions because of the ongoing pain. After discussion of the procedure, risks, and alternatives, she consents to an excision under local anesthesia as a minor surgery. Coding Level of Care Code Est Pt Level 4 (36208) Diagnoses Sebaceous cyst L72.3
[2024-09-05 13:06] VITALS: BP 110/72; BMI 28.2
--- OUTSIDE RECORDS SUMMARY | 2024-09-05 15:20 | XMS_ITS | Data Portability ---
Author Organization [employer], [place] [employer] Address [address] [place] [address] Care Team Providers Care Vending Supervisor Name Role Phone [facility] Referring Provider [phone] Assessment Encounter Date Assessment Date Assessment LastModified by Organization Details LastModified Time 04/17/2023 04/17/2023 I provided real -time medical direction via phone for this encounter, and was available for additional phone based assistance as needed. I have reviewed and agree with the Assessment and Plan as documented by the Scouring Train Operator Chief. Patient given the opportunity to ask questions. [...] Assessment and Plan as documented by the Scouring Train Operator Chief. Patient given the opportunity to ask questions. Advised also follow-up with PCP after the holiday weekend. If develops CP/severe SOB/turning blue/uncontrolle d n/v/d or black/bloody emesis or stool/ AMS/ syncope/ hi fever unresponsive to APAP to call 911- verbalized understanding of instructions Not available 05/28/2023 23:29:31 Plan of Treatment Reminders Order Date Submit Date Provider Last Modified By Organization Details Last Modified Time Details Appointments None recorded. Lab rapid SARS CoV 2 Ag, QL IA, respiratory specimen 2022 023 [email or web address], [phone] 23:30:39 Referral None recorded. Procedures None recorded. Surgeries None recorded. Imaging None recorded. Medication Orders prednisone 20 mg tablet 2022 023 [facility]acy #2339, [address] [place] [address], [address], 3 23:30:40 Delsym 12 hour 30 mg/5 mL oral suspension, extended release 2022 023 [facility] #2339, [address] [place] [address], [address], 3 23:30:40 prednisone 20 mg tablet 2022 023 [facility] [address] [place] [address], [address], 3 17:04:15 Delsym 12 hour 30 mg/5 mL oral suspension, extended release 2022 023 [facility] #2339, [address] [place] [address], [address], 3 17:04:15 Patient TargetsNo targets recorded. Patient InstructionsNo instructions recorded. Reason for Referral None Reported. Results Created Date Observation Date Name Description Value Unit Range Abnormal Flag Note LastModifiedBy Organization Detail LastModifiedTime 05/28/2005/28/2023 rapid SARS CoV 2 Ag, QL IA, respi rator y speci men rapid SARS CoV 2 Ag, QL IA, respiratory specimen negati ve Not Available Main - [facility] ed [address] [place] [address], [id number] 05/28/2023 21:04:03 Result Notes None recorded. Medical [...] active Not Available Not Available Not Available [facility] 100,000 unit/gram topical powder 1 APPL TOPICALLY [...] Address Organization Details Last Updated DateTime 3 91055.3 52 g 97 % 97 % 98.3 [degF] 20 /min 72 /min 157.48 cm 138 mm[Hg] 80 mm[Hg] Not Available [employer] - production 3 17:31:15 Date Recorded Heart rate Respiratory rate Body temperature Oxygen saturation Oxygen saturation in Arterial blood by Pulse oximetry Systolic blood pressure Diastolic blood pressure Provider Name and Address Organization Details Last Updated DateTime 3 90 /min 18 /min 99.5 [degF] 94 % 94 % 131 mm[Hg] 84 mm[Hg] Not Available [employer] - production 3 16:50:54 Date Recorded Body weight Heart rate Respiratory rate Body height Oxygen saturation Oxygen saturation in Arterial blood by Pulse oximetry Body temperature Systolic blood pressure Diastolic blood pressure Provider Name and Address Organization Details Last Updated DateTime 3 78622.7 2 g 87 /min 18 /min 157.48 cm 96 % 96 % 97.7 [degF] 130 mm[Hg] 70 mm[Hg] Not Available [employer] 3 20:57:50 Social History None recorded. Functional Status None recorded. Mental Status None recorded. Family History Nothing Reported. Medical History No medical history recorded. Gynecological HistoryNo gynecological history recorded. Obstetrics History GPAL:G 0 P 0 0 0 0 Past Encounters Encounter ID Performer Location Encounter Start Date Encounter Closed Date Diagnosis/Indication Diagnosis SNOMED-CT Code Diagnosis ICD10 Code Diagnosis Note [id number] Chikis Gonzalez MD Main - [facility] [address] [place] [phone] 04/05/2023 17:31:13 04/06/2023 11:29:43 Dyspnea [id number] R06.00 I provided real -time medical direction via phone for this encounter, and was available for additional phone based assistance as needed. I have reviewed and agree with the Assessment and Plan as documented by the Scouring Train Operator Chief. Patient given the opportunit y to ask [...] since she reduced use of albuterol inhaler. [id number] Donya Farrell MD Main - [facility] [address] [place] [phone] 04/17/2023 16:50:53 04/19/2023 09:53:43 Respiratory tract congestion and cough [id number] R05.9 [id number] Elenita Iyer MD Main - [facility] [address] [place] [phone] 05/28/2023 20:57:44 06/01/2023 12:03:10 Cough [id number] R05.9 Patient requesting azithromyc in and prednisone [...] Glover Member ID Guarantor Name 04/05/2023 1 [facility] C[facility] - DOS ON OR AFTER 2022 - DUAL ELIGIBLE - ASSISTED OPTIONS AND ONE CARE (MEDICARE REPLACEMENT/ADV ANTAGE - HMO) Karli Victor [id number] Karli Victor 04/17/2023 1 [facility] - DOS ON OR AFTER 2022 - DUAL ELIGIBLE - ASSISTED OPTIONS AND ONE CARE (MEDICARE REPLACEMENT/ADV ANTAGE - HMO) Karli Victor [id number] Karli Victor 05/28/2023 1 [facility] - DOS ON OR AFTER 2022 - DUAL ELIGIBLE - ASSISTED OPTIONS AND ONE CARE (MEDICARE REPLACEMENT/ADV ANTAGE - HMO) Karli Victor [id number] Karli Victor Notes Date Note Type Note [...] ................... ................... ................... ................... ................... ................... ........ Scouring Train Operator Chief Note From Sha Davies: Dispatched to above [...] fluid intake and get rest. Spoke with [facility] physician who requests and ambulatory assessment. Assessment preformed, patient was easily able to walk over 50 feet without assistance or any difficulty, no change in respiratory status. Patient states she feels less anxious after assessment, agrees with advice given. SC12 cleared scene. EOR. ................... ................... ................... ................... ................... ................... ................... ........ Disposition: Fulfilled Chikis Gonzalez MD [address] [place] [address],[address] [facility], [place], [phone], [facility] 04/05/2023 23:19:25 04/17/2023 text/html CRC Nursing Assessment: Chief Complaints: Shortness of Breath/Dyspnea PMH: Severe Persistent Mental Illness (SPMI) Allergies: No Known Comments: Finished Amoxicillin 2 days ago for a sinus infection. Increased dyspnea with increased PRN Proair inhaler use. History of emphysema. Speaking full sentences. Donya Farrell MD [address] [place] [address],[address], [place], [phone], [employer] 04/17/2023 21:48:51 05/28/2023 text/html CRC Nurse Triage [...] and an antibiotic. Member is awaiting an job recruiter appt. Member has an inhaler but not working . Member has a cough with tightness when she breaths, sputum is thick and white. Member is not taking anything OTC RED FLAGS when to call 911 ................... ................... ................... ................... ................... ................... ................... ........ Scouring Train Operator Chief Note From Sha Davies: 62yo F c/o [...] prednisone for 4 days and Delsym. The [facility] was questioning COPD/asthma overlap but she denies a history of COPD or asthma. She does have an inhaler - has plenty of albuterol in it and she is using it 4-5 times a day.. Elenita Iyer MD [address] [facility],[address], [place], [address], [employer] 05/28/2023 23:31:23 OBGyn Episode No OBEpisode recorded.
== END 2024-09-05 13:11 | disposition home or self-care (01) ==
LOC: HO.HGS 12:44
PROVIDERS: PCP Internal Medicine; Visit Provider Surgery
DX: L72.3 Sebaceous cyst (principal)
CPT/HCPCS: 99214

== ENCOUNTER → 2024-09-05 12:43 | Outpatient (BNVA) | payer OTHER, SELFPAY | PROVIDERS: PCP Internal Medicine; Visit Provider Surgery | DX: L72.3 Sebaceous cyst (principal) | CPT/HCPCS: 99212 ==

== ENCOUNTER 2024-09-19 01:41 | Outpatient (REF) | payer OTHER, SELFPAY ==
[2024-09-19 13:34] VITALS: BP 134/63; PULSE 64; RESP 16; TEMP 36.7; O2SAT 94; BMI 28.3
--- NOTE | 2024-09-19 14:40 | W.PM.OPN ---
Operative Note Operative Note Date of Service: 09/19/24 Narrative: Preoperative diagnosis: Epidermal inclusion cyst of bilateral neck, right lower quadrant abdomen and right upper inner thigh Postoperative diagnosis: Same Procedure: Excision of epidermal inclusion cyst bilateral neck, right upper inner thigh, right lower quadrant abdomen, incision and drainage of abscess upper inner thigh right Surgeon: Troy Macias MD Livestock Slaughterer: Ricco Rajput PA-C Anesthesia: Local lidocaine 1% with epinephrine Indications for procedure: 63-year-old female with a history of multiple cutaneous cyst presenting with multiple additional cutaneous cyst noted above Operative findings: 0.5 cm cutaneous epidermal inclusion cyst times 2 posterior neck, x1 right lower quadrant abdomen, x2 upper inner right thigh Specimen: Epidermal inclusion cyst posterior neck, right lower quadrant abdomen and right upper inner thigh Estimated blood loss: 2 mL Complications: None Procedure details: Patient was brought to the minor surgery suite and placed in a supine position. After assuring informed consent the skin was prepped with Betadine in the right neck and draped in a sterile fashion. Local anesthesia was infiltrated and an elliptical incision created with a 15 blade. Incision was carried down around the cyst wall and the lesion excised. This was sent to pathology for further examination. Skin was closed using interrupted 5 0 nylon sutures. Attention was then directed to the left neck where again local was infiltrated around the lesion. Elliptical incision was made with a scalpel carried out through subcutaneous tissue and around the cyst wall. The lesion was completely excised and sent to pathology for further examination. Skin was then closed using interrupted 5 0 nylon sutures. Attention was then directed to the right lower quadrant abdomen and upper inner thigh right side were again the skin was prepped with Betadine and draped in a sterile fashion. Local anesthesia was infiltrated around all 3 lesions. Beginning in the abdomen an elliptical incision was then created with a scalpel and carried out through subcutaneous tissue. This was carried down around the cyst wall and excised. The lesion was passed off the table and sent to pathology for further examination. Skin was closed using interrupted 4-0 nylon sutures. The right upper inner thigh cyst was excised again using an elliptical incision carried out through subcutaneous tissue and around the cyst wall. The lesion was passed off the table and sent to pathology for further examination. Skin was closed using interrupted 4-0 nylon sutures. Finally the infected cyst in the right upper inner thigh was incised. Mostly phlegmon was encountered without any definite abscess. Wounds were packed with quarter-inch Nu Gauze. Dry sterile dressings were applied to this lesion. The remaining incisions were covered with 2 x 2 gauze followed by Tegaderm. The patient tolerated the procedure well. Sponge, instrument, and needle counts reported as correct. The patient was transferred to PACU in stable condition.
== END 2024-09-19 01:42 | disposition home or self-care (01) ==
LOC: HO.MS 01:41
PROVIDERS: PCP Internal Medicine; Visit Provider Surgery
PROC: (CPT 11420; principal; 2024-09-19 12:00)
DX: L72.0 Epidermal cyst (principal)
CPT/HCPCS: 11420 ×2; 11402 ×2; 88304; J2004

== ENCOUNTER → 2024-09-19 12:00 | Outpatient (BNV) | payer OTHER, SELFPAY | PROVIDERS: PCP Internal Medicine; Visit Provider Surgery | DX: L72.0 Epidermal cyst (principal) | CPT/HCPCS: 11402; 11421; 11422 ==

== ENCOUNTER 2024-09-19 14:46 | Outpatient (REF) | payer OTHER, SELFPAY ==
--- NOTE | ~2024-09-19 | CT_ITS ---
CLINICAL HISTORY: F17.210 - Nicotine dependence, cigarettes, uncomplicated CT lung cancer screening (LDCT) Comparison: CT/GA/SR - CT LUNG SCREENING - 09/10/23 14:31 EDT Technique: Axial CT images of the chest using low-dose technique. Referring provider counseled the patient on shared decision-making for LDCT screening. Additional counseling was provided on smoking cessation. Effective radiation dose total: DLP 30 mGycm, CTDIvol 0.9 mGy. Findings: Lung: Mild emphysema. Stable 2 mm subpleural nodules of the right upper lobe series 4, image 35 and on image 23. Coronary artery calcifications: Mild Limited upper abdomen: Possible cysts of the liver. Other: None Impression: LungRADS 2 - Benign Appearance: Continue annual screening with low dose Chest CT in 12 months. ##L2# Category 1: Normal; continue annual screening Category 2: Benign appearance or behavior, continue annual screening Category 3: Probably benign, [address] recommended Category 4A: Suspicious, [address] recommended; may consider PET/CT Category 4B: Suspicious, Additional diagnostics and/or tissue sampling recommended Category 4X: Suspicious, Additional diagnostics and/or tissue sampling recommended Category 0: Recalls (incomplete screen due to Incomplete coverage, Noise, Respiratory motion, Expiration, Obscured by acute abnormality) This document has been electronically signed by: Len Almazan MD on 09/20/2024 13:44:47
--- OUTSIDE RECORDS SUMMARY | 2024-09-19 17:40 | XMS_ITS | Data Portability ---
Author Organization [employer], [place] [employer] Address [address] [place] [phone] Care Team Providers Care Barrel Builder Name Role Phone [facility] Referring Provider [phone] Assessment Encounter Date Assessment Date Assessment LastModified by Organization Details LastModified Time 04/17/2023 04/17/2023 I provided real -time medical direction via phone for this encounter, and was available for additional phone based assistance as needed. I have reviewed and agree with the Assessment and Plan as documented by the School Bus Driver. Patient given the opportunity to ask questions. [...] Assessment and Plan as documented by the School Bus Driver. Patient given the opportunity to ask questions. Advised also follow-up with PCP after the holiday weekend. If develops CP/severe SOB/turning blue/uncontrolle d n/v/d or black/bloody emesis or stool/ AMS/ syncope/ hi fever unresponsive to APAP to call 911- verbalized understanding of instructions [email or web address] Not available 05/28/2023 23:29:31 Plan of Treatment Reminders Order Date Submit Date Provider Last Modified By Organization Details Last Modified Time Details Appointments None recorded. Lab rapid SARS CoV 2 Ag, QL IA, respiratory specimen 2022 023 [email or web address], [phone] 23:30:39 Referral None recorded. Procedures None recorded. Surgeries None recorded. Imaging None recorded. Medication Orders prednisone 20 mg tablet 2022 023 [facility]armacy #2339, [address] [place] [address], [address], 3 23:30:40 Delsym 12 hour 30 mg/5 mL oral suspension, extended release 2022 023 [facility] #2339, [address] [place] [address], [address], 3 23:30:40 prednisone 20 mg tablet 2022 023 [facility] [address] [place] [address], [address], 3 17:04:15 Delsym 12 hour 30 mg/5 mL oral suspension, extended release 2022 023 [facility] #2339, [address] [place] [address], [address], 3 17:04:15 Patient TargetsNo targets recorded. Patient InstructionsNo instructions recorded. Reason for Referral None Reported. Results Created Date Observation Date Name Description Value Unit Range Abnormal Flag Note LastModifiedBy Organization Detail LastModifiedTime 05/28/2005/28/2023 rapid SARS CoV 2 Ag, QL IA, respi rator y speci men rapid SARS CoV 2 Ag, QL IA, respiratory specimen negati ve Not Available Main - [facility] ed [address] [place] [address], [phone] 05/28/2023 21:04:03 Result Notes None recorded. Medical [...] active Not Available Not Available Not Available [facility] 100,000 unit/gram topical powder 1 APPL TOPICALLY [...] Address Organization Details Last Updated DateTime 3 72222.3 52 g 97 % 97 % 98.3 [degF] 20 /min 72 /min 157.48 cm 138 mm[Hg] 80 mm[Hg] Not Available [employer] production 3 17:31:15 Date Recorded Heart rate Respiratory rate Body temperature Oxygen saturation Oxygen saturation in Arterial blood by Pulse oximetry Systolic blood pressure Diastolic blood pressure Provider Name and Address Organization Details Last Updated DateTime 3 90 /min 18 /min 99.5 [degF] 94 % 94 % 131 mm[Hg] 84 mm[Hg] Not Available [employer] production 3 16:50:54 Date Recorded Body weight Heart rate Respiratory rate Body height Oxygen saturation Oxygen saturation in Arterial blood by Pulse oximetry Body temperature Systolic blood pressure Diastolic blood pressure Provider Name and Address Organization Details Last Updated DateTime 3 39902.7 2 g 87 /min 18 /min 157.48 cm 96 % 96 % 97.7 [degF] 130 mm[Hg] 70 mm[Hg] Not Available [employer] 3 20:57:50 Social History None recorded. Functional Status None recorded. Mental Status None recorded. Family History Nothing Reported. Medical History No medical history recorded. Gynecological HistoryNo gynecological history recorded. Obstetrics History GPAL:G 0 P 0 0 0 0 Past Encounters Encounter ID Performer Location Encounter Start Date Encounter Closed Date Diagnosis/Indication Diagnosis SNOMED-CT Code Diagnosis ICD10 Code Diagnosis Note [id number] Chikis Gonzalez MD Main - [facility] [address] [place] [phone] 04/05/2023 17:31:13 04/06/2023 11:29:43 Dyspnea [id number] R06.00 I provided real -time medical direction via phone for this encounter, and was available for additional phone based assistance as needed. I have reviewed and agree with the Assessment and Plan as documented by the School Bus Driver. Patient given the opportunit y to ask [...] since she reduced use of albuterol inhaler. [id number] Donya Farrell MD Main - [facility] [address] [place] [phone] 04/17/2023 16:50:53 04/19/2023 09:53:43 Respiratory tract congestion and cough [id number] R05.9 [id number] Elenita Iyer MD Main - [facility] [address] [place] [phone] 05/28/2023 20:57:44 06/01/2023 12:03:10 Cough [id number] R05.9 Patient requesting azithromyc in and prednisone [...] Glover Member ID Guarantor Name 04/05/2023 1 [facility] - DOS ON OR AFTER 2022 - DUAL ELIGIBLE - PRISON OPTIONS AND ONE CARE (MEDICARE REPLACEMENT/ADV ANTAGE - HMO) Karli Victor [id number] Karli Victor 04/17/2023 1 [facility] - DOS ON OR AFTER 2022 - DUAL ELIGIBLE - PRISON OPTIONS AND ONE CARE (MEDICARE REPLACEMENT/ADV ANTAGE - HMO) Karli Victor [id number] Karli Victor 05/28/2023 1 [facility] ALLI[facility] - DOS ON OR AFTER 2022 - DUAL ELIGIBLE - PRISON OPTIONS AND ONE CARE (MEDICARE REPLACEMENT/ADV ANTAGE - HMO) Karli Victor [id number] Karli Victor Notes Date Note Type Note [...] ................... ................... ................... ................... ................... ................... ........ School Bus Driver Note From Sha Davies: Dispatched to above [...] fluid intake and get rest. Spoke with [facility] physician who requests and ambulatory assessment. Assessment preformed, patient was easily able to walk over 50 feet without assistance or any difficulty, no change in respiratory status. Patient states she feels less anxious after assessment, agrees with advice given. SC12 cleared scene. EOR. ................... ................... ................... ................... ................... ................... ................... ........ Disposition: Fulfilled Chikis Gonzalez MD [address] [place] [address],[address] [facility], [place], [phone], [employer] 04/05/2023 23:19:25 04/17/2023 text/html CRC Nursing Assessment: Chief Complaints: Shortness of Breath/Dyspnea PMH: Severe Persistent Mental Illness (SPMI) Allergies: No Known Comments: Finished Amoxicillin 2 days ago for a sinus infection. Increased dyspnea with increased PRN Proair inhaler use. History of emphysema. Speaking full sentences. Donya Farrell MD [address] [place] [address],[address], [place], [phone], [employer] 04/17/2023 21:48:51 05/28/2023 text/html CRC Nurse Triage [...] and an antibiotic. Member is awaiting an skinner pelts appt. Member has an inhaler but not working . Member has a cough with tightness when she breaths, sputum is thick and white. Member is not taking anything OTC RED FLAGS when to call 911 ................... ................... ................... ................... ................... ................... ................... ........ School Bus Driver Note From Sha Davies: 62yo F c/o [...] prednisone for 4 days [address] The [facility] was questioning COPD/asthma overlap but she denies a history of COPD or asthma. She does have an inhaler - has plenty of albuterol in it and she is using it 4-5 times a day.. Elenita Iyer MD [address] [facility],[address], [place], [address], [employer] 05/28/2023 23:31:23 OBGyn Episode No OBEpisode recorded.
== END 2024-09-19 14:47 | disposition home or self-care (01) ==
LOC: HO.CT 14:46
PROVIDERS: PCP Internal Medicine; Visit Provider Nurse Practitioner Family
DX: Z12.2 Encounter for screening for malignant neoplasm of respiratory organs (principal); F17.210 Nicotine dependence, cigarettes, uncomplicated
CPT/HCPCS: 71271

== ENCOUNTER → 2024-09-19 14:49 | Outpatient (BNV) | payer OTHER, SELFPAY | PROVIDERS: PCP Internal Medicine; Visit Provider Nuclear Medicine | DX: F17.210 Nicotine dependence, cigarettes, uncomplicated (principal) | CPT/HCPCS: 71271 ==

== ENCOUNTER 2024-09-21 11:50 | Outpatient (AMB) | payer OTHER, SELFPAY ==
[2024-09-21 12:43] VITALS: BP 110/64; PULSE 70; TEMP 36.6; O2SAT 98
--- NOTE | 2024-09-21 12:43 | AM.OFFWIN_ITS ---
Intake Vital Signs 09/21/24 12:43 Weight 153 lb BP 110/64 Blood Pressure Location Rt brachial Position Sitting Pulse 70 Pulse Source Pulse Oximeter Temp 98 F Temp Source Oral Pulse Oximetry (%) 98 Oxygen Delivery Method Room Air Intake Visit Reasons: EP Coughing, sob, hot/cold chills, weak Intake Note: Patient here for cough, SOB, chills that has been present for about 1 week. Patient Tobacco Use Status: Former Tobacco user Allergies adhesive tape Allergy (Intermediate, Verified 09/21/24 12:49) Blister egg Allergy (Mild, Verified 09/21/24 12:49) Nausea lorazepam Adverse Reaction (Intermediate, Verified 09/21/24 12:49) increased anxiety & anger Do you need a note to return to daycare/school/sports/work: No HPI HPI Comments History of Present Illness Details 63 y/o Female patient who presents to [facility] walk in clinic with c/o cough, SOB, body chills that have been present for about 1 week. Denies Fevers, but endorses body chills. Denies nausea or vomiting. Pt currently on Doxy (started 09/19 for 7 days) - Pt had a minor cyst I&D by General surgeon. [facility] Medical History (Updated 09/21/24 @ 13:20 by Myriam Ford NP) Wheezing on auscultation Acute respiratory disease Depression Nicotine dependence, cigarettes, uncomplicated Mixed urge and stress incontinence Generalized anxiety disorder Hidradenitis suppurativa of multiple sites Erythema intertrigo ADHD Dyslipidemia Auditory hallucinations Surgical History History of excision of epidermal inclusion cyst (07/24/24) H/O Spinal surgery History of hemorrhoidectomy History of excision of epidermal inclusion cyst (10/24/21) H/O oophorectomy Family History Father Substance use disorder Mother Lung cancer Substance use disorder Maternal Grandmother Diabetes mellitus Brother Lung cancer Substance use disorder Mental health disorder Brother Substance use disorder Brother Substance use disorder Brother Substance use disorder Brother Substance use disorder Sister Substance use disorder Mental health disorder Son No problems noted. Social History Housing: Condominium Are you a primary complex care nurse to a significant other at home: No Do you presently have visiting nurse or other home services: No Alcohol intake: current Alcohol intake frequency: does not drink Patient Tobacco Use Status: Former Tobacco user Tobacco use type: Cigarette Cigarette Packs Per Day: 0.5 Cigarettes Per Day: 7 e-Cigarette/Vaping Use: Never Used Second Hand Smoke Exposure: No service: No Current occupational status: unemployed Cognitive needs: No Hearing needs: No Vision needs: No Female Reproductive History Menstrual Age of Menarche: 16 Review of Systems Const All systems reviewed & are unremarkable except as noted in HPI and below Physical Exam Vital Signs: Last Vital Signs Temp 98 F 09/21/24 12:43 Pulse 70 09/21/24 12:43 BP 110/64 09/21/24 12:43 Pulse Ox 98 09/21/24 12:43 Oxygen Delivery Method Room Air 09/21/24 12:43 Const General: no acute distress Nutritional Appearance: overweight Orientation/consciousness: patient oriented x3 HEENT Head: Yes normocephalic Ears: external ears normal and TM abnormal with fluid behind the TM bilateral General nose exam: Normal nasal mucous membranes and turbinates present Face and sinus: Yes sinuses nontender Mouth: moist mucous membranes Throat: Yes uvula midline Resp Effort & Inspection: normal respiratory effort, able to speak in complete sentences and Actively coughing Auscultation: no crackles, no rales, rhonchi and wheezes Cardio Heart sounds: S1 normal heart sound present and S2 normal heart sound present Neuro General: patient oriented x3, gait normal and moves all extremities Psych Speech and movement: Normal speech and movement present Affect: Anxious affect present Office Procedures Nebulizer Treatment Nebulizer Treatment 73482-Nifqrklni/MDI RX initial, or Nebulizer Subsequent Treatment Office Meds ipratropium 0.5 mg-albuterol 3 mg (2.5 mg base)/3 mL nebulization soln Performing Provider: Myriam Ford NP [place] [facility] Administered by: Myriam Ford NP on 09/21/24 13:23 Dose Route Admin Location Dispensed Lot Number Expiration Date [facility] Inspector Floor Sub Assembly 3 mL inhalation 3 mL Assessment & Plan Assessment & Plan (1) Acute respiratory disease: Code(s): J06.9 - Acute upper respiratory infection, unspecified Plan: Ordered Neb in Office. Ordered Prednisone for 5 days. Continue on Doxy as directed. No need for another Abx at this time. Continue using Albuterol Inhaler PRN. Ordered SARs. (2) Wheezing on auscultation: Code(s): R06.2 - Wheezing Plan: Ordered Neb in Office. Ordered Prednisone for 5 days. Continue on Doxy as directed. No need for another Abx at this time. Continue using Albuterol Inhaler PRN. Ordered SARs. Orders: Orders SARS-CoV2/FLU/RSV Today J06.9 - Acute upper respiratory infection, unspecified, R06.2 - Wheezing AMB Nebulizer Treatment Today R06.2 - Wheezing Medications: New prednisone 50 mg PO DAILY 5 tabs 0RF 5 days R06.2 - Wheezing benzonatate 200 mg (2 x 100 mg) PO BID 60 caps 0RF cough R05.9 - Cough, unspecified Coding Level of Care Code Est Pt Level 4 (06755) Diagnoses Acute respiratory disease J06.9 Wheezing on auscultation R06.2 CPT Codes Nebulizer Treatment - Nebulizer Treatment, initial or subsequent: [id number]-[id number] ulizer/MDI RX initial, or Nebulizer Subsequent Treatment ([id number]) Time Spent (min) 20
--- OUTSIDE RECORDS SUMMARY | 2024-09-21 14:11 | XMS_ITS | Data Portability ---
Author Organization [employer] Address [address] [place] [id number] Care Team Providers Care Small Parts Shaper Operator Name Role Phone [facility] Referring Provider [phone] Assessment Encounter Date Assessment Date Assessment LastModified by Organization Details LastModified Time 04/17/2023 04/17/2023 I provided real -time medical direction via phone for this encounter, and was available for additional phone based assistance as needed. I have reviewed and agree with the Assessment and Plan as documented by the Bridge Club Manager. Patient given the opportunity to ask questions. [...] Assessment and Plan as documented by the Bridge Club Manager. Patient given the opportunity to ask questions. Advised also follow-up with PCP after the holiday weekend. If develops CP/severe SOB/turning blue/uncontrolle d n/v/d or black/bloody emesis or stool/ AMS/ syncope/ hi fever unresponsive to APAP to call 911- verbalized understanding of instructions [email or web address] Not available 05/28/2023 23:29:31 Plan of Treatment Reminders Order Date Submit Date Provider Last Modified By Organization Details Last Modified Time Details Appointments None recorded. Lab rapid SARS CoV 2 Ag, QL IA, respiratory specimen 2022 023 [email or web address], [phone] 23:30:39 Referral None recorded. Procedures None recorded. Surgeries None recorded. Imaging None recorded. Medication Orders prednisone 20 mg tablet 2022 023 [id number], [address] [place] [address], [id number], 3 23:30:40 Delsym 12 hour 30 mg/5 mL oral suspension, extended release 2022 023 [id number], [address] [place] [address], [id number], 3 23:30:40 prednisone 20 mg tablet 2022 023 [id number] [address] [place] [address], [id number], 3 17:04:15 Delsym 12 hour 30 mg/5 mL oral suspension, extended release 2022 023 [id number], [address] [place] [address], [id number], 3 17:04:15 Patient TargetsNo targets recorded. Patient InstructionsNo instructions recorded. Reason for Referral None Reported. Results Created Date Observation Date Name Description Value Unit Range Abnormal Flag Note LastModifiedBy Organization Detail LastModifiedTime 05/28/2005/28/2023 rapid SARS CoV 2 Ag, QL IA, respi rator y speci men rapid SARS CoV 2 Ag, QL IA, respiratory specimen negati ve Not Available Main - [facility] ed [address] [place] [address], [id number] 05/28/2023 21:04:03 Result Notes None recorded. Medical [...] active Not Available Not Available Not Available [facility] 100,000 unit/gram topical powder 1 APPL [...] Address Organization Details Last Updated DateTime 3 17009.3 52 g 97 % 97 % 98.3 [degF] 20 /min 72 /min 157.48 cm 138 mm[Hg] 80 mm[Hg] Not Available [employer] [facility] [employer] 3 17:31:15 Date Recorded Heart rate Respiratory rate Body temperature Oxygen saturation Oxygen saturation in Arterial blood by Pulse oximetry Systolic blood pressure Diastolic blood pressure Provider Name and Address Organization Details Last Updated DateTime 3 90 /min 18 /min 99.5 [degF] 94 % 94 % 131 mm[Hg] 84 mm[Hg] Not Available [employer] [facility] [employer] 3 16:50:54 Date Recorded Body weight Heart rate Respiratory rate Body height Oxygen saturation Oxygen saturation in Arterial blood by Pulse oximetry Body temperature Systolic blood pressure Diastolic blood pressure Provider Name and Address Organization Details Last Updated DateTime 3 18902.7 2 g 87 /min 18 /min 157.48 cm 96 % 96 % 97.7 [degF] 130 mm[Hg] 70 mm[Hg] Not Available [employer] 3 20:57:50 Social History None recorded. Functional Status None recorded. Mental Status None recorded. Family History Nothing Reported. Medical History No medical history recorded. Gynecological HistoryNo gynecological history recorded. Obstetrics History GPAL:G 0 P 0 0 0 0 Past Encounters Encounter ID Performer Location Encounter Start Date Encounter Closed Date Diagnosis/Indication Diagnosis SNOMED-CT Code Diagnosis ICD10 Code Diagnosis Note [id number] Cihkis Gonzalez MD Main - [facility] [address] [place] [id number] 04/05/2023 17:31:13 04/06/2023 11:29:43 Dyspnea [id number] R06.00 I provided real -time medical direction via phone for this encounter, and was available for additional phone based assistance as needed. I have reviewed and agree with the Assessment and Plan as documented by the Bridge Club Manager. Patient given the opportunit y to ask [...] since she reduced use of albuterol inhaler. [id number] Donya Farrell MD Main - [facility] [address] [place] [phone] 04/17/2023 16:50:53 04/19/2023 09:53:43 Respiratory tract congestion and cough [id number] R05.9 [id number] Elenita Iyer MD Main - [facility] [address] [place] [phone] 05/28/2023 20:57:44 06/01/2023 12:03:10 Cough [id number] R05.9 Patient requesting azithromyc in and prednisone [...] Glover Member ID Guarantor Name 04/05/2023 1 [facility] - DOS ON OR AFTER 2022 - DUAL ELIGIBLE - SNF OPTIONS AND ONE CARE (MEDICARE REPLACEMENT/ADV ANTAGE - HMO) Karli Victor [id number] Karli Victor 04/17/2023 1 [facility] - DOS ON OR AFTER 2022 - DUAL ELIGIBLE - SNF OPTIONS AND ONE CARE (MEDICARE REPLACEMENT/ADV ANTAGE - HMO) Karli Victor [id number] Karli Victor 05/28/2023 1 [facility] - DOS ON OR AFTER 2022 - DUAL ELIGIBLE - SNF OPTIONS AND ONE CARE (MEDICARE REPLACEMENT/ADV ANTAGE - HMO) Karli Victor [id number] Karli Victor Notes Date Note Type Note [...] ................... ................... ................... ................... ................... ................... ........ Bridge Club Manager Note From Sha Davies: Dispatched to above [...] fluid intake and get rest. Spoke with [facility] physician who requests and ambulatory assessment. Assessment preformed, patient was easily able to walk over 50 feet without assistance or any difficulty, no change in respiratory status. Patient states she feels less anxious after assessment, agrees with advice given. SC12 cleared scene. EOR. ................... ................... ................... ................... ................... ................... ................... ........ Disposition: Fulfilled Chikis Gonzalez MD [address] [place] [address],[address] [facility], [place], [phone], [employer] 04/05/2023 23:19:25 04/17/2023 text/html CRC Nursing Assessment: Chief Complaints: Shortness of Breath/Dyspnea PMH: Severe Persistent Mental Illness (SPMI) Allergies: No Known Comments: Finished Amoxicillin 2 days ago for a sinus infection. Increased dyspnea with increased PRN Proair inhaler use. History of emphysema. Speaking full sentences. Donya Farrell MD [address] [place] [address],[address], [place], [phone], [employer] 04/17/2023 21:48:51 05/28/2023 text/html CRC Nurse Triage [...] and an antibiotic. Member is awaiting an integration aide appt. Member has an inhaler but not working . Member has a cough with tightness when she breaths, sputum is thick and white. Member is not taking anything OTC RED FLAGS when to call 911 ................... ................... ................... ................... ................... ................... ................... ........ Bridge Club Manager Note From Sha Davies: 62yo F c/o [...] prednisone for 4 days and Delsym. The [facility] was questioning COPD/asthma overlap but she denies a history of COPD or asthma. She does have an inhaler - has plenty of albuterol in it and she is using it 4-5 times a day.. Elenita Iyer MD [address] [facility],[address], [place], [phone], [employer] 05/28/2023 23:31:23 OBGyn Episode No OBEpisode recorded.
== END 2024-09-21 13:36 | disposition home or self-care (01) ==
PROVIDERS: PCP Internal Medicine; Visit Provider Nurse Practitioner Family
DX: J06.9 Acute upper respiratory infection, unspecified (principal); R06.2 Wheezing

== ENCOUNTER 2024-09-21 11:50 | Outpatient (REF) | payer OTHER, SELFPAY ==
[2024-09-21 17:04] LABS: Influenza A PCR NEGATIVE (Negative); Influenza B PCR NEGATIVE (Negative); Resp Syncy Virus RNA Qual PCR NEGATIVE (Negative); SARS COV2 PCR INHOUSE NEGATIVE (Negative)
== END 2024-09-21 11:51 | disposition home or self-care (01) ==
LOC: HO.LAB 11:50
PROVIDERS: PCP Internal Medicine; Visit Provider Nurse Practitioner Family
DX: J06.9 Acute upper respiratory infection, unspecified (principal); R06.2 Wheezing; R06.02 Shortness of breath
CPT/HCPCS: 0241U; 94640; 99212

== ENCOUNTER 2024-10-03 13:50 | Outpatient (AMB) | payer OTHER, SELFPAY ==
--- NOTE | 2024-10-03 14:07 | MHC.OFFVIS ---
Vital Signs 10/03/24 14:09 Height 5 ft 2 in Weight 153 lb 0.013 oz BMI 28.0 BP 138/76 Blood Pressure Location Lt brachial Position Sitting Pulse 72 Intake Visit Reasons: S/P excision cyst x5 Intake Note: Patient is seen in office for post op assessment post excision cyst x5. Pt c/o: denies any concerns Camera Operator Required: No Accompanied by: Self / Same As Patient Allergies adhesive tape Allergy (Intermediate, Verified 10/03/24 14:09) Blister egg Allergy (Mild, Verified 10/03/24 14:09) Nausea lorazepam Adverse Reaction (Intermediate, Verified 10/03/24 14:09) increased anxiety & anger HPI Comments Details: 63-year-old female returning 1 week following excision of multiple skin cysts including bilateral neck, right lower quadrant abdomen and right upper inner thigh. She tolerated the procedure well and denies any bleeding or discharge. She has already found multiple new lesions throughout her body. [facility] Medical History Wheezing on auscultation Acute respiratory disease Depression Nicotine dependence, cigarettes, uncomplicated Mixed urge and stress incontinence Generalized anxiety disorder Hidradenitis suppurativa of multiple sites Erythema intertrigo ADHD Dyslipidemia Auditory hallucinations Surgical History Hx of excision of epidermal inclusion cyst (09/19/24) History of excision of epidermal inclusion cyst (07/24/24) H/O Spinal surgery History of hemorrhoidectomy History of excision of epidermal inclusion cyst (10/24/21) H/O oophorectomy Family History Father Substance use disorder Mother Lung cancer Substance use disorder Maternal Grandmother Diabetes mellitus Brother Lung cancer Substance use disorder Mental health disorder Brother Substance use disorder Brother Substance use disorder Brother Substance use disorder Brother Substance use disorder Sister Substance use disorder Mental health disorder Son No problems noted. Social History Housing: Condominium Are you a primary ambulatory care coordinator to a significant other at home: No Do you presently have visiting nurse or other home services: No Alcohol intake: current Alcohol intake frequency: does not drink Patient Tobacco Use Status: Former Tobacco user Tobacco use type: Cigarette Cigarette Packs Per Day: 0.5 Cigarettes Per Day: 7 e-Cigarette/Vaping Use: Never Used Second Hand Smoke Exposure: No service: No Current occupational status: unemployed Cognitive needs: No Hearing needs: No Vision needs: No Female Reproductive History Menstrual Age of Menarche: 16 Physical Exam Vital Signs: Last Vital Signs Pulse 72 10/03/24 14:09 BP 138/76 10/03/24 14:09 BMI result Body Mass Index 28.0 Neck Other: Bilateral posterior neck excision sites are clean, dry, and intact without redness or discharge. Sutures removed and wounds found to be well healed. GI Other: Abdominal incision in the right lower quadrant is clean, dry, and intact without redness or discharge. Sutures removed and wounds found to be well healed. Extrem Other: Incision in the right upper inner thigh is clean, dry, and intact without redness or discharge sutures removed and wounds found to be well healed. Assessment & Plan Assessment & Plan (1) Sebaceous cyst: Code(s): L72.3 - Sebaceous cyst Category: Medical Plan 63-year-old female status post excision of multiple sebaceous cysts including the posterior bilateral neck, right lower quadrant abdomen and right upper inner thigh. Her wounds are clean and intact without redness or discharge. Sutures removed from all incisions. She should follow up as needed. Coding Level of Care Code Global (80326) Diagnoses Sebaceous cyst L72.3
[2024-10-03 14:09] VITALS: BP 138/76; PULSE 72; BMI 28.0
--- OUTSIDE RECORDS SUMMARY | 2024-10-03 15:11 | XMS_ITS | Data Portability ---
Author Organization [employer] Address [address] [place] [address] Care Team Providers Care Dress Finisher Name Role Phone [facility] Referring Provider Assessment Encounter Date Assessment Date Assessment LastModified by Organization Details LastModified Time 04/17/2023 04/17/2023 I provided real -time medical direction via phone for this encounter, and was available for additional phone based assistance as needed. I have reviewed and agree with the Assessment and Plan as documented by the [employer] Advanced Operator Maintainer. Patient given the opportunity to ask questions. [...] Assessment and Plan as documented by the [employer] Advanced Operator Maintainer. Patient given the opportunity to ask questions. Advised also follow-up with PCP after the holiday weekend. If develops CP/severe SOB/turning blue/uncontrolle d n/v/d or black/bloody emesis or stool/ AMS/ syncope/ hi fever unresponsive to APAP to call 911- verbalized understanding of instructions [email or web address] Not available 05/28/2023 23:29:31 Plan of Treatment Reminders Order Date Submit Date Provider Last Modified By Organization Details Last Modified Time Details Appointments None recorded. Lab rapid SARS CoV 2 Ag, QL IA, respiratory specimen 2022 023 [email or web address], [address] 23:30:39 Referral None recorded. Procedures None recorded. Surgeries None recorded. Imaging None recorded. Medication Orders prednisone 20 mg tablet 2022 023 [facility], [address] [place] [address], [id number], 3 23:30:40 Delsym 12 hour 30 mg/5 mL oral suspension, extended release 2022 023 [facility], [address] [place] [address], [address], 3 23:30:40 prednisone 20 mg tablet 2022 023 [facility] [address] [place] [address], [address], 3 17:04:15 Delsym 12 hour 30 mg/5 mL oral suspension, extended release 2022 023 [facility], [address] [place] [address], [id number], 3 17:04:15 Patient TargetsNo targets recorded. Patient InstructionsNo instructions recorded. Reason for Referral None Reported. Results Created Date Observation Date Name Description Value Unit Range Abnormal Flag Note LastModifiedBy Organization Detail LastModifiedTime 05/28/2005/28/2023 rapid SARS CoV 2 Ag, QL IA, respi rator y speci men rapid SARS CoV 2 Ag, QL IA, respiratory specimen negati ve Not Available Main - [facility] ed [address] [place] [address], [phone] 05/28/2023 21:04:03 Result Notes None recorded. Medical [...] active Not Available Not Available Not Available [facility]/gram topical powder 1 APPL [...] Address Organization Details Last Updated DateTime 3 62850.3 52 g 97 % 97 % 98.3 [degF] 20 /min 72 /min 157.48 cm 138 mm[Hg] 80 mm[Hg] Not Available [facility] [employer] - production 3 17:31:15 Date Recorded Heart rate Respiratory rate Body temperature Oxygen saturation Oxygen saturation in Arterial blood by Pulse oximetry Systolic blood pressure Diastolic blood pressure Provider Name and Address Organization Details Last Updated DateTime 3 90 /min 18 /min 99.5 [degF] 94 % 94 % 131 mm[Hg] 84 mm[Hg] Not Available [facility] [employer] [facility] - production 3 16:50:54 Date Recorded Body weight Heart rate Respiratory rate Body height Oxygen saturation Oxygen saturation in Arterial blood by Pulse oximetry Body temperature Systolic blood pressure Diastolic blood pressure Provider Name and Address Organization Details Last Updated DateTime 3 72363.7 2 g 87 /min 18 /min 157.48 cm 96 % 96 % 97.7 [degF] 130 mm[Hg] 70 mm[Hg] Not Available [employer] 3 20:57:50 Social History None recorded. Functional Status None recorded. Mental Status None recorded. Family History Nothing Reported. Medical History No medical history recorded. Gynecological HistoryNo gynecological history recorded. Obstetrics History GPAL:G 0 P 0 0 0 0 Past Encounters Encounter ID Performer Location Encounter Start Date Encounter Closed Date Diagnosis/Indication Diagnosis SNOMED-CT Code Diagnosis ICD10 Code Diagnosis Note [id number] Chikis Gonzalez MD Main - [facility] [address] [place] [phone] 04/05/2023 17:31:13 04/06/2023 11:29:43 Dyspnea 812518412 R06.00 I provided real -time medical direction via phone for this encounter, and was available for additional phone based assistance as needed. I have reviewed and agree with the Assessment and Plan as documented by the [employer] Advanced Operator Maintainer. Patient given the opportunit y to ask [...] since she reduced use of albuterol inhaler. [id number] Donya Farrell MD Main - [facility] [address] [place] [phone] 04/17/2023 16:50:53 04/19/2023 09:53:43 Respiratory tract congestion and cough 472576343 R05.9 [id number] Elenita Iyer MD Main - [facility] [address] [place] [phone] 05/28/2023 20:57:44 06/01/2023 12:03:10 Cough [id number] R05.9 Patient requesting azithromyc in and prednisone [...] Glover Member ID Guarantor Name 04/05/2023 1 [facility] - DOS ON OR AFTER 2022 - DUAL ELIGIBLE - LONGTERM OPTIONS AND ONE CARE (MEDICARE REPLACEMENT/ADV ANTAGE - HMO) Karli Victor [id number] Karli Victor 04/17/2023 1 [facility] - DOS ON OR AFTER 2022 - DUAL ELIGIBLE - LONGTERM OPTIONS AND ONE CARE (MEDICARE REPLACEMENT/ADV ANTAGE - HMO) Karli Victor [id number] Karli Victor 05/28/2023 1 [facility] - DOS ON OR AFTER 2022 - DUAL ELIGIBLE - LONGTERM OPTIONS AND ONE CARE (MEDICARE REPLACEMENT/ADV ANTAGE - HMO) Karli Victor [id number] Karli Victor Notes Date Note Type Note [...] ................... ................... ................... ................... ................... ................... ........ [employer] Advanced Operator Maintainer Note From Sha Davies: Dispatched to above [...] fluid intake and get rest. Spoke with [facility] physician who requests and ambulatory assessment. Assessment preformed, patient was easily able to walk over 50 feet without assistance or any difficulty, no change in respiratory status. Patient states she feels less anxious after assessment, agrees with advice given. SC12 cleared scene. EOR. ................... ................... ................... ................... ................... ................... ................... ........ Disposition: Fulfilled Chikis Gonzalez MD [address] [place] [address],[address] [facility], [place], [phone], [employer] 04/05/2023 23:19:25 04/17/2023 text/html CRC Nursing Assessment: Chief Complaints: Shortness of Breath/Dyspnea PMH: Severe Persistent Mental Illness (SPMI) Allergies: No Known Comments: Finished Amoxicillin 2 days ago for a sinus infection. Increased dyspnea with increased PRN Proair inhaler use. History of emphysema. Speaking full sentences. Donya Farrell MD [address] [place] [address],[address], [place], [address], [employer] 04/17/2023 21:48:51 05/28/2023 text/html CRC Nurse Triage [...] and an antibiotic. Member is awaiting an handy worker appt. Member has an inhaler but not working . Member has a cough with tightness when she breaths, sputum is thick and white. Member is not taking anything OTC RED FLAGS when to call 911 ................... ................... ................... ................... ................... ................... ................... ........ [employer] Advanced Operator Maintainer Note From Sha Davies: 62yo F c/o [...] prednisone for 4 days and Delsym. The [facility] was questioning COPD/asthma overlap but she denies a history of COPD or asthma. She does have an inhaler - has plenty of albuterol in it and she is using it 4-5 times a day.. Elenita Iyer MD [address] [facility],[address], [place], [address], [employer] 05/28/2023 23:31:23 OBGyn Episode No OBEpisode recorded.
== END 2024-10-03 14:10 | disposition home or self-care (01) ==
LOC: HO.HGS 13:51
PROVIDERS: PCP Internal Medicine; Visit Provider Surgery
DX: L72.3 Sebaceous cyst (principal)
CPT/HCPCS: 99024

== ENCOUNTER → 2024-10-03 13:50 | Outpatient (BNVA) | payer OTHER, SELFPAY | PROVIDERS: PCP Internal Medicine; Visit Provider Surgery | DX: Z48.817 Encounter for surgical aftercare following surgery on the skin and subcutaneous tissue (principal); Z98.890 Other specified postprocedural states | CPT/HCPCS: 99212 ==

== ENCOUNTER 2024-12-07 14:19 | Outpatient (REF) | payer OTHER, SELFPAY ==
[2024-12-07 16:49] LABS: Alanine Aminotransferase 21 U/L (0-31); Aspartate Amino Transferase 26 U/L (5-31); Cholesterol 173 mg/dL (<200); HDL Cholesterol 57 mg/dL (>40); Triglycerides 108 mg/dL (<150)
== END 2024-12-07 14:20 | disposition home or self-care (01) ==
LOC: HO.HMGCLDS 14:19
PROVIDERS: PCP Internal Medicine; Visit Provider Internal Medicine
DX: H00.012 Hordeolum externum right lower eyelid (principal); E78.5 Hyperlipidemia, unspecified; L72.0 Epidermal cyst
CPT/HCPCS: 36415; 80061; 84450; 84460; 99212

== ENCOUNTER 2024-12-07 14:19 | Outpatient (AMB) | payer OTHER, SELFPAY ==
--- NOTE | 2024-12-07 14:22 | AM.OFFWIN_ITS ---
Intake Vital Signs 12/07/24 14:23 Height 5 ft 2 in Weight 146 lb BMI 26.7 BP 106/70 Blood Pressure Location Lt brachial Position Sitting Pulse 88 Pulse Source Pulse Oximeter Temp 98.1 F Temp Source Oral Pulse Oximetry (%) 95 Oxygen Delivery Method Room Air Intake Visit Reasons: EP Stye on RT eye, infected cyst on neck? Intake Note: presents with stye in right eye for 11 days, left recurring cyst posterior neck. also c/o SOB with dry cough Patient Tobacco Use Status: Former Tobacco user Allergies adhesive tape Allergy (Intermediate, Verified 12/07/24 14:29) Blister egg Allergy (Mild, Verified 12/07/24 14:29) Nausea lorazepam Adverse Reaction (Intermediate, Verified 12/07/24 14:29) increased anxiety & anger Do you need a note to return to daycare/school/sports/work: No HPI HPI Comments History of Present Illness Details History - The patient is a 64-year-old female pr esenting with evaluation of recurrent neck cyst and eye irritation. - The patient had surgery for an epiderm al cyst on the neck a few months ago, performed by Dr. Macias. - Post-surgery, the cyst has become infl dru again, causing mild pain and discomfort. - There is no drainage from the cyst, bu t slight wetness was noted upon touch a few days ago. - The patient also reports irritation in the right lower eyelid, suspected to be a sty, with mild itchiness and swelling. - The patient has been using warm compre sses and tea bags for relief, with limited success. Physical Exam General: Cooperative, healthy appearing, comfortable, no acute distress and well developed Orientation: Patient oriented x3 Limitations: No limitations Head: Normal to inspection Ears: Hearing grossly normal bilaterally Nose: Normal External nose present Face and sinus: Normal facial exam Mouth: normal, moist oral mucosa Eyes: Appearance normal, both eyes and all related structures, right lower lid with inflamed area of erythema with central area of purulence Neck: Normal visual inspection, Yes full ROM, left posterior neck with 0.75cm round, firm area which is slightly tender, no drainage, no fluctuance, no warmth or other signs of infection noted. Respiratory: Normal respiratory effort and able to speak in complete sentences. Skin: no rashes or lesions noted Neuro: Patient oriented x3 Extremities: moving all extremities normally [facility] Medical History Wheezing on auscultation Acute respiratory disease Depression Nicotine dependence, cigarettes, uncomplicated Mixed urge and stress incontinence Generalized anxiety disorder Hidradenitis suppurativa of multiple sites Erythema intertrigo ADHD Dyslipidemia Auditory hallucinations Surgical History Hx of excision of epidermal inclusion cyst (09/19/24) History of excision of epidermal inclusion cyst (07/24/24) H/O Spinal surgery History of hemorrhoidectomy History of excision of epidermal inclusion cyst (10/24/21) H/O oophorectomy Family History Father Substance use disorder Mother Lung cancer Substance use disorder Maternal Grandmother Diabetes mellitus Brother Lung cancer Substance use disorder Mental health disorder Brother Substance use disorder Brother Substance use disorder Brother Substance use disorder Brother Substance use disorder Sister Substance use disorder Mental health disorder Son No problems noted. Social History [facility] Are you a primary acute care occupational therapist to a significant other at home: No Do you presently have visiting nurse or other home services: No Alcohol intake: current Alcohol intake frequency: does not drink Patient Tobacco Use Status: Former Tobacco user Tobacco use type: Cigarette Cigarette Packs Per Day: 0.5 Cigarettes Per Day: 7 e-Cigarette/Vaping Use: Never Used Second Hand Smoke Exposure: No service: No Current occupational status: unemployed Cognitive needs: No Hearing needs: No Vision needs: No Female Reproductive History Menstrual Age of Menarche: 16 Review of Systems Const All systems reviewed & are unremarkable except as noted in HPI and below Physical Exam Vital Signs: Last Vital Signs Temp 98.1 F 12/07/24 14:23 Pulse 88 12/07/24 14:23 BP 106/70 12/07/24 14:23 Pulse Ox 95 12/07/24 14:23 Oxygen Delivery Method Room Air 12/07/24 14:23 BMI result Body Mass Index 26.7 Assessment & Plan Assessment & Plan (1) Hordeolum externum of right lower eyelid: Code(s): H00.012 - Hordeolum externum right lower eyelid Plan: Patient was informed and verbally consented to the use of an ambient scribe for clinic note documentation during this visit - Erythromycin ointment prescribed for application to the affected eyelid four times daily. - Patient advised to continue warm compresses, tea bags and monitor for improvement. - if no improvement, she should follow up with her PCP. (2) Epidermal cyst of neck: Code(s): L72.0 - Epidermal cyst Plan: There does not appear to be any cellulitis in the area of the cyst. Recommended patient follow up at her appointment with her general surgeon in 4 days to address the cyst. No indication for antibiotics at this time. Medications: New erythromycin Apply to left eye 4 times a day while awake 0.5 inches ophthalmic-Right QID 3.5 grams 0RF Coding Level of Care Code Est Pt Level 3 (51414) Diagnoses Hordeolum externum of right lower eyelid H00.012 Epidermal cyst of neck L72.0
[2024-12-07 14:23] VITALS: BP 106/70; PULSE 88; TEMP 36.7; O2SAT 95; BMI 26.7
--- OUTSIDE RECORDS SUMMARY | 2024-12-07 14:32 | XMS_ITS | Data Portability ---
Author Organization [employer], [facility] Address [address] [place] [address] Care Team Providers Care Service Electrician Name Role Phone [facility] Referring Provider Assessment Encounter Date Assessment Date Assessment LastModified by Organization Details LastModified Time 04/17/2023 04/17/2023 I provided real -time medical direction via phone for this encounter, and was available for additional phone based assistance as needed. I have reviewed and agree with the Assessment and Plan as documented by the Science Liaison. Patient given the opportunity to ask questions. [...] Assessment and Plan as documented by the Science Liaison. Patient given the opportunity to ask questions. Advised also follow-up with PCP after the holiday weekend. If develops CP/severe SOB/turning blue/uncontrolle d n/v/d or black/bloody emesis or stool/ AMS/ syncope/ hi fever unresponsive to APAP to call 911- verbalized understanding of instructions [email or web address] Not available 05/28/2023 23:29:31 Plan of Treatment Reminders Order Date Submit Date Provider Last Modified By Organization Details Last Modified Time Details Appointments None recorded. Lab rapid SARS CoV 2 Ag, QL IA, respiratory specimen 2022 023 [email or web address], [address] 23:30:39 Referral None recorded. Procedures None recorded. Surgeries None recorded. Imaging None recorded. Medication Orders prednisone 20 mg tablet 2022 023 [facility] [address] [place] [address], [address], 3 23:30:40 Delsym 12 hour 30 mg/5 mL oral suspension, extended release 2022 023 [facility] #2339, [address] [place] [address], [place], [address], 3 23:30:40 prednisone 20 mg tablet 2022 023 [facility] [address] [place] [address], [address], 3 17:04:15 Delsym 12 hour 30 mg/5 mL oral suspension, extended release 2022 023 [facility] [address] [place] [address], [address], 3 17:04:15 Patient TargetsNo targets recorded. Patient InstructionsNo instructions recorded. Reason for Referral None Reported. Results Created Date Observation Date Name Description Value Unit Range Abnormal Flag Note LastModifiedBy Organization Detail LastModifiedTime 05/28/2005/28/2023 rapid SARS CoV 2 Ag, QL IA, respi rator y speci men rapid SARS CoV 2 Ag, QL IA, respiratory specimen negati ve Not Available Main - [facility] ed [address] [facility], [place], [address] 05/28/2023 21:04:03 Result Notes None recorded. Medical [...] Respiratory rate Heart rate Body height Systolic And Diastolic Provider Name and Address Organization Details Last Updated DateTime 3 40348.3 52 g 97 % 97 % 98.3 [degF] 20 /min 72 /min 157.48 cm 138/80 mm[Hg] Not Available [employer] 3 17:31:15 Date Recorded Heart rate Respiratory rate Body temperature Oxygen saturation Oxygen saturation in Arterial blood by Pulse oximetry Systolic And Diastolic Provider Name and Address Organization Details Last Updated DateTime 3 90 /min 18 /min 99.5 [degF] 94 % 94 % 131/84 mm[Hg] Not Available [employer] 3 16:50:54 Date Recorded Body weight Heart rate Respiratory rate Body height Oxygen saturation Oxygen saturation in Arterial blood by Pulse oximetry Body temperature Systolic And Diastolic Provider Name and Address Organization Details Last Updated DateTime 3 60836.7 2 g 87 /min 18 /min 157.48 cm 96 % 96 % 97.7 [degF] 130/70 mm[Hg] Not Available [employer] 3 20:57:50 Social History None recorded. Functional Status None recorded. Mental Status None recorded. Family History Nothing Reported. Medical History No medical history recorded. Gynecological HistoryNo gynecological history recorded. Obstetrics History GPAL:G 0 P 0 0 0 0 Past Encounters Encounter ID Performer Location Encounter Start Date Encounter Closed Date Diagnosis/Indication Diagnosis SNOMED-CT Code Diagnosis ICD10 Code Diagnosis Note [id number] Chikis Gonzalez MD Main - [address] [address] 04/05/2023 17:31:13 04/06/2023 11:29:43 Dyspnea 632230295 R06.00 I provided real -time medical direction via phone for this encounter, and was available for additional phone based assistance as needed. I have reviewed and agree with the Assessment and Plan as documented by the Science Liaison. Patient given the opportunit y to ask [...] since she reduced use of albuterol inhaler. [id number] Donya Farrell MD Main - [facility] [address] [place] [phone] 04/17/2023 16:50:53 04/19/2023 09:53:43 Respiratory tract congestion and cough [id number] R05.9 [id number] Elenita Iyer MD Main - [facility] [address] [place] [address] 05/28/2023 20:57:44 06/01/2023 12:03:10 Cough 92464286 R05.9 Patient requesting azithromyc in and prednisone [...] Recorded Advance Directives Directive None Recorded Payers Insurance Date Sequence Insurance Name Policy Number Policy Glover Covered Member ID Glover Member ID Guarantor Name 06/01/2023 1 [facility] - DOS ON OR AFTER 2022 - DUAL ELIGIBLE - LONG-TERM OPTIONS AND ONE CARE (MEDICARE REPLACEMENT/ADV ANTAGE - HMO) Karli Victor [id number] Karli Victor Notes Date Note Type Note [...] ................... ................... ................... ................... ................... ................... ........ Science Liaison Note From Sha Davies: Dispatched to above [...] fluid intake and get rest. Spoke with [facility] physician who requests and ambulatory assessment. Assessment preformed, patient was easily able to walk over 50 feet without assistance or any difficulty, no change in respiratory status. Patient states she feels less anxious after assessment, agrees with advice given. SC12 cleared scene. EOR. ................... ................... ................... ................... ................... ................... ................... ........ Disposition: Fulfilled Chikis Gonzalez MD [address] [facility],[address], [place], [address], [employer] 04/05/2023 23:19:25 04/17/2023 text/html CRC Nursing Assessment: Chief Complaints: Shortness of Breath/Dyspnea PMH: Severe Persistent Mental Illness (SPMI) Allergies: No Known Comments: Finished Amoxicillin 2 days ago for a sinus infection. Increased dyspnea with increased PRN Proair inhaler use. History of emphysema. Speaking full sentences. Donya Farrell MD [address] [facility],[address], [place], [address], [employer] 04/17/2023 21:48:51 05/28/2023 text/html CRC Nurse Triage [...] and an antibiotic. Member is awaiting an clinical cytopathologist appt. Member has an inhaler but not working . Member has a cough with tightness when she breaths, sputum is thick and white. Member is not taking anything OTC RED FLAGS when to call 911 ................... ................... ................... ................... ................... ................... ................... ........ Science Liaison Note From Sha Davies: 62yo F c/o [...] prednisone for 4 days and Delsym. The [facility] was questioning COPD/asthma overlap but she denies a history of COPD or asthma. She does have an inhaler - has plenty of albuterol in it and she is using it 4-5 times a day.. Elenita Iyer MD [address] [facility],[address], [place], [address], [employer] 05/28/2023 23:31:23 OBGyn Episode No OBEpisode recorded.
== END 2024-12-07 15:09 | disposition home or self-care (01) ==
PROVIDERS: PCP Internal Medicine; Visit Provider Physician Assistant
DX: H00.012 Hordeolum externum right lower eyelid (principal); L72.0 Epidermal cyst

== ENCOUNTER 2024-12-11 13:23 | Outpatient (AMB) | payer OTHER, SELFPAY ==
--- NOTE | 2024-12-11 13:31 | A.OFFVIS_ITS ---
Vital Signs 3 12/11/24 13:34 Height 5 ft 2 in Weight 148 lb BMI 27.1 BP 128/61 Blood Pressure Location Lt brachial Position Sitting Pulse 77 Intake Visit Reasons: epidermal cyst Intake Note: Patient is seen in office for follow up visit, regarding multiple cysts. Pt c/o: recurrent left and right neck cyst, itchy and burning, has a new one on the back of the right leg Attendance Officer Required: No Accompanied by: Self / Same As Patient Allergies adhesive tape Allergy (Intermediate, Verified 12/11/24 13:34) Blister egg Allergy (Mild, Verified 12/11/24 13:34) Nausea lorazepam Adverse Reaction (Intermediate, Verified 12/11/24 13:34) increased anxiety & anger Medication List - Last Reconciled 12/11/24 by Troy Macias MD albuterol sulfate 90 mcg/actuation 2 puffs inhalation Q4-6H PRN ascorbate calcium (vitamin C) 500 mg PO DAILY benzonatate 200 mg PO BID PRN chlorhexidine gluconate 4% (Hibiclens) 1 appl topically every 2-3 days, in shower lather entire body and leave on for one minute before rinsing. 1 month cholecalciferol (vitamin D3) (Vitamin D3) 25 mcg PO QAM clonazepam 0.25 mg PO DAILY PRN coenzyme Q10 100 mg PO DAILY erythromycin 0.5 inches ophthalmic-Right QID fluticasone propionate 110 mcg/actuation 1 puff inhalation Q12H hydrocortisone-pramoxine 1-1 % 1 appl SD QID PRN ibuprofen 600 mg PO Q8H PRN lamotrigine 25 mg PO DAILY [id number]-[id number]-[id number]-FA-vit K 18 mg iron-400 mcg-25 mcg (One Daily Women's) 1 tab PO QAM nicotine 1 patch transdermal DAILY nystatin 1 appl topical BID PRN rosuvastatin 5 mg PO 3XW 3 months Saccharomyces boulardii (Daily Probiotic (S. boulardii)) 250 mg PO BID sertraline 50 mg PO DAILY HPI Comments Details: 64-year-old female patient with a long history of hidradenitis and skin infections presenting with for new skin cysts in the bilateral posterior neck and posterior right thigh. She reports the lesions are increasing in size and causing discomfort. She occasionally has some discharge and itchiness as well. She also reports bilateral groin cysts consistent with hidradenitis but feels the Hibiclens scrub is helping. She also notes the Hibiclens is causing some inflammation in the perianal skin therefore she is avoiding this. She wishes to have the bilateral neck and posterior right thigh lesions excised. [facility] Medical History Wheezing on auscultation Acute respiratory disease Depression Nicotine dependence, cigarettes, uncomplicated Mixed urge and stress incontinence Generalized anxiety disorder Hidradenitis suppurativa of multiple sites Erythema intertrigo ADHD Dyslipidemia Auditory hallucinations Surgical History Hx of excision of epidermal inclusion cyst (09/19/24) History of excision of epidermal inclusion cyst (07/24/24) H/O Spinal surgery History of hemorrhoidectomy History of excision of epidermal inclusion cyst (10/24/21) H/O oophorectomy Family History Father Substance use disorder Mother Lung cancer Substance use disorder Maternal Grandmother Diabetes mellitus Brother Lung cancer Substance use disorder Mental health disorder Brother Substance use disorder Brother Substance use disorder Brother Substance use disorder Brother Substance use disorder Sister Substance use disorder Mental health disorder Son No problems noted. Social History Housing: Condominium Are you a primary healthcare risk control consultant to a significant other at home: No Do you presently have visiting nurse or other home services: No Alcohol intake: current Alcohol intake frequency: does not drink Patient Tobacco Use Status: Former Tobacco user Tobacco use type: Cigarette Cigarette Packs Per Day: 0.5 Cigarettes Per Day: 7 e-Cigarette/Vaping Use: Never Used Second Hand Smoke Exposure: No service: No Current occupational status: unemployed Cognitive needs: No Hearing needs: No Vision needs: No Female Reproductive History Menstrual Age of Menarche: 16 Review of Systems Const All systems reviewed & are unremarkable except as noted in HPI and below Physical Exam Vital Signs: Last Vital Signs Pulse 77 12/11/24 13:34 BP 128/61 12/11/24 13:34 BMI result Body Mass Index 27.1 Const General: comfortable Nutritional Appearance: well nourished Orientation/consciousness: patient oriented x3 Limitations: no limitations HEENT Head: Yes normal to inspection Neck Neck images: 2 1. 1.5 cm area of possible epidermal inclusion cyst with no erythema or fluctuance noted. 2. 1.5 cm possible epidermal inclusion cyst with no overlying erythema or fluctuance noted. Resp Effort & Inspection: normal respiratory effort, no audible wheezes, no cough and no respiratory distress GI Inspection: Yes normal to inspection Neuro General: patient oriented x3 Extrem Other: Posterior right thigh with a 1 cm firm area, possible fibroma verses epidermal inclusion cyst. Upper/lower leg/hip images: 2 1. Site of posterior right thigh lesion. Assessment & Plan Assessment & Plan (1) Epidermal cyst of neck: Code(s): L72.0 - Epidermal cyst Category: Medical (2) Epidermal inclusion cyst: Code(s): L72.0 - Epidermal cyst Category: Medical Plan 64-year-old female patient with a long history of numerous skin lesions now presenting with 2 new recently infected cyst in the posterior neck and posterior right thigh. Patient has requested excision of the 3 lesions. I reviewed the procedure, risks and alternatives and she wishes to proceed with the procedure under anesthesia as a short-stay surgery. She gives her consent for excision of bilateral neck and posterior right thigh epidermal inclusion cysts. Coding Level of Care Code Est Pt Level 4 (08129) Diagnoses Epidermal cyst of neck L72.0 Epidermal inclusion cyst L72.0
[2024-12-11 13:34] VITALS: BP 128/61; PULSE 77; BMI 27.1
--- OUTSIDE RECORDS SUMMARY | 2024-12-11 14:30 | XMS_ITS | Data Portability ---
Author Organization [employer] [facility], [facility] Address [address] [place] [address] Care Team Providers Care Inside Sales Account Representative Name Role Phone [facility] Referring Provider Assessment Encounter Date Assessment Date Assessment LastModified by Organization Details LastModified Time 04/17/2023 04/17/2023 I provided real -time medical direction via phone for this encounter, and was available for additional phone based assistance as needed. I have reviewed and agree with the Assessment and Plan as documented by the Pump Attendant. Patient given the opportunity to ask questions. [...] Assessment and Plan as documented by the Pump Attendant. Patient given the opportunity to ask questions. Advised also follow-up with PCP after the holiday weekend. If develops CP/severe SOB/turning blue/uncontrolle d n/v/d or black/bloody emesis or stool/ AMS/ syncope/ hi fever unresponsive to APAP to call 911- verbalized understanding of instructions [email or web address] Not available 05/28/2023 23:29:31 Plan of Treatment Reminders Order Date Submit Date Provider Last Modified By Organization Details Last Modified Time Details Appointments None recorded. Lab rapid SARS CoV 2 Ag, QL IA, respiratory specimen 2022 023 [email or web address], [phone] 23:30:39 Referral None recorded. Procedures None recorded. Surgeries None recorded. Imaging None recorded. Medication Orders prednisone 20 mg tablet 2022 023 [id number] [address] [place] [address], [id number], 3 23:30:40 Delsym 12 hour 30 mg/5 mL oral suspension, extended release 2022 023 [id number], [address] [place] [address], [place], [address], 3 23:30:40 prednisone 20 mg tablet 2022 023 [id number], [address] [place] [address], [address], 3 17:04:15 Delsym 12 hour 30 mg/5 mL oral suspension, extended release 2022 023 [id number] [address] [place] [address], [address], 3 17:04:15 Patient TargetsNo targets recorded. Patient InstructionsNo instructions recorded. Reason for Referral None Reported. Results Created Date Observation Date Name Description Value Unit Range Abnormal Flag Note LastModifiedBy Organization Detail LastModifiedTime 05/28/2005/28/2023 rapid SARS CoV 2 Ag, QL IA, respi rator y speci men rapid SARS CoV 2 Ag, QL IA, respiratory specimen negati ve Not Available Main - [facility] ed [address] [facility], [place], [address] 05/28/2023 21:04:03 Result Notes None recorded. Medical [...] Address Organization Details Last Updated DateTime 3 40691.3 52 g 97 % 97 % 98.3 [degF] 20 /min 72 /min 157.48 cm 138/80 mm[Hg] Not Available [employer] 3 17:31:15 Date Recorded Heart rate Respiratory rate Body temperature Oxygen saturation Oxygen saturation in Arterial blood by Pulse oximetry Systolic And Diastolic Provider Name and Address Organization Details Last Updated DateTime 3 90 /min 18 /min 99.5 [degF] 94 % 94 % 131/84 mm[Hg] Not Available [employer] 3 16:50:54 Date Recorded Body weight Heart rate Respiratory rate Body height Oxygen saturation Oxygen saturation in Arterial blood by Pulse oximetry Body temperature Systolic And Diastolic Provider Name and Address Organization Details Last Updated DateTime 3 50819.7 2 g 87 /min 18 /min 157.48 cm 96 % 96 % 97.7 [degF] 130/70 mm[Hg] Not Available [employer] 3 20:57:50 Social History None recorded. Functional Status None recorded. Mental Status None recorded. Family History Nothing Reported. Medical History No medical history recorded. Gynecological HistoryNo gynecological history recorded. Obstetrics History GPAL:G 0 P 0 0 0 0 Past Encounters Encounter ID Performer Location Encounter Start Date Encounter Closed Date Diagnosis/Indication Diagnosis SNOMED-CT Code Diagnosis ICD10 Code Diagnosis Note [id number] Chikis Gonzalez MD Main - [address] [phone] 04/05/2023 17:31:13 04/06/2023 11:29:43 Dyspnea 440215070 R06.00 I provided real -time medical direction via phone for this encounter, and was available for additional phone based assistance as needed. I have reviewed and agree with the Assessment and Plan as documented by the Pump Attendant. Patient given the opportunit y to ask [...] since she reduced use of albuterol inhaler. [id number] Donya Farrell MD Main - [facility] [address] [place] [phone] 04/17/2023 16:50:53 04/19/2023 09:53:43 Respiratory tract congestion and cough 464310024 R05.9 [id number] Elenita Iyer MD Main - [facility] [address] [place] [phone] 05/28/2023 20:57:44 06/01/2023 12:03:10 Cough 53468959 R05.9 Patient requesting azithromyc in and prednisone [...] Glover Member ID Guarantor Name 06/01/2023 1 [facility] - DOS ON OR AFTER 2022 - DUAL ELIGIBLE - [employer] OPTIONS AND ONE CARE (MEDICARE REPLACEMENT/ADV ANTAGE - HMO) Karli Victor [id number] Karli Victor Notes Date Note Type Note [...] ................... ................... ................... ................... ................... ................... ........ Pump Attendant Note From Sha Davies: Dispatched to above [...] fluid intake and get rest. Spoke with [facility] physician who requests and ambulatory assessment. Assessment preformed, patient was easily able to walk over 50 feet without assistance or any difficulty, no change in respiratory status. Patient states she feels less anxious after assessment, agrees with advice given. SC12 cleared scene. EOR. ................... ................... ................... ................... ................... ................... ................... ........ Disposition: Fulfilled Chikis Gonzalez MD [address] [facility],[address], [place], [phone], [employer] 04/05/2023 23:19:25 04/17/2023 text/html [facility] Nursing Assessment: Chief Complaints: Shortness of Breath/Dyspnea PMH: Severe Persistent Mental Illness (SPMI) Allergies: No Known Comments: Finished Amoxicillin 2 days ago for a sinus infection. Increased dyspnea with increased PRN Proair inhaler use. History of emphysema. Speaking full sentences. Donya Farrell MD [address] [facility],[address], [place], [phone], [employer] 04/17/2023 21:48:51 05/28/2023 text/html CRC Nurse Triage [...] and an antibiotic. Member is awaiting an lead man over all dies in pattern shop appt. Member has an inhaler but not working . Member has a cough with tightness when she breaths, sputum is thick and white. Member is not taking anything OTC RED FLAGS when to call 911 ................... ................... ................... ................... ................... ................... ................... ........ Pump Attendant Note From Sha Davies: 62yo F c/o [...] prednisone for 4 days and Delsym. The [facility] was questioning COPD/asthma overlap but she denies a history of COPD or asthma. She does have an inhaler - has plenty of albuterol in it and she is using it 4-5 times a day.. Elenita Iyer MD [address] [facility],[address], [place], [address], [employer] [facility] [employer] 05/28/2023 23:31:23 OBGyn Episode No OBEpisode recorded.
== END 2024-12-11 13:37 | disposition home or self-care (01) ==
LOC: HO.HGS 13:24
PROVIDERS: PCP Internal Medicine; Visit Provider Surgery
DX: L72.0 Epidermal cyst (principal)
CPT/HCPCS: 99214

== ENCOUNTER → 2024-12-11 13:23 | Outpatient (BNVA) | payer OTHER, SELFPAY | PROVIDERS: PCP Internal Medicine; Visit Provider Surgery | DX: L72.0 Epidermal cyst (principal) | CPT/HCPCS: 99212 ==

== ENCOUNTER 2024-12-20 11:47 | Outpatient (AMB) | payer OTHER, SELFPAY ==
--- NOTE | 2024-12-20 12:04 | MHC.OFFWIV ---
Intake Vital Signs 12/20/24 12:06 Height 5 ft 2 in Weight 148 lb BMI 27.1 BP 110/62 Blood Pressure Location Rt brachial Position Sitting Pulse 64 Pulse Source Pulse Oximeter Temp 97.8 F Temp Source Oral Pulse Oximetry (%) 95 Oxygen Delivery Method Room Air Intake Visit Reasons: EP Abscess on neck area Intake Note: presents with abcess to left neck, states scheduled for excision 12/25/24 Patient Tobacco Use Status: Former Tobacco user Allergies adhesive tape Allergy (Intermediate, Verified 12/20/24 12:10) Blister egg Allergy (Mild, Verified 12/20/24 12:10) Nausea lorazepam Adverse Reaction (Intermediate, Verified 12/20/24 12:10) increased anxiety & anger HPI HPI Comments History of Present Illness Details History of Present Illness - The patient is a 64-year-old female presenting with an abscess on the neck. - The abscess began a couple of weeks ago, with an initial evaluation by a doctor. - Surgery was planned but postponed to the upcoming Wednesday. - The patient reports pain and attributes fatigue and weakness to the infection. - There is a history of similar abscesses, with prior surgery that was insufficient, causing recurrence. - Keflex is noted as the most effective antibiotic for the patient. - Epsom salt soaks and warm compresses are used as home treatments. - Lancing provides relief of her pain. - She denies bleeding, drainage, discharge, or fever. Physical Exam General: Cooperative, healthy appearing, comfortable, no acute distress and well developed Neck: Abscess present on the posterior neck at the left base. Full ROM of the neck. Respiratory: Normal respiratory effort and able to speak in complete sentences. Clear to auscultation bilaterally Cardiovascular: Regular rate and rhythm. Normal S1 and S2 Skin: No rashes noted. Small abscess noted to the posterior left base of the neck with fluctuance and slight erythema noted. No induration noted. No streaking noted. Patient was informed and verbally consented to the use of an ambient scribe for clinic note documentation during this visit. [facility] Medical History Wheezing on auscultation Acute respiratory disease Depression Nicotine dependence, cigarettes, uncomplicated Mixed urge and stress incontinence Generalized anxiety disorder Hidradenitis suppurativa of multiple sites Erythema intertrigo ADHD Dyslipidemia Auditory hallucinations Surgical History Hx of excision of epidermal inclusion cyst (09/19/24) History of excision of epidermal inclusion cyst (07/24/24) H/O Spinal surgery History of hemorrhoidectomy History of excision of epidermal inclusion cyst (10/24/21) H/O oophorectomy Family History Father Substance use disorder Mother Lung cancer Substance use disorder Maternal Grandmother Diabetes mellitus Brother Lung cancer Substance use disorder Mental health disorder Brother Substance use disorder Brother Substance use disorder Brother Substance use disorder Brother Substance use disorder Sister Substance use disorder Mental health disorder Son No problems noted. Social History Housing: Condominium Are you a primary intensive care unit nurse to a significant other at home: No Do you presently have visiting nurse or other home services: No Alcohol intake: current Alcohol intake frequency: does not drink Patient Tobacco Use Status: Former Tobacco user Tobacco use type: Cigarette Cigarette Packs Per Day: 0.5 Cigarettes Per Day: 7 e-Cigarette/Vaping Use: Never Used Second Hand Smoke Exposure: No service: No Current occupational status: unemployed Cognitive needs: No Hearing needs: No Vision needs: No Female Reproductive History Menstrual Age of Menarche: 16 Review of Systems Const All systems reviewed & are unremarkable except as noted in HPI and below Physical Exam Vital Signs: Last Vital Signs Temp 97.8 F 12/20/24 12:06 Pulse 64 12/20/24 12:06 BP 110/62 12/20/24 12:06 Pulse Ox 95 12/20/24 12:06 Oxygen Delivery Method Room Air 12/20/24 12:06 BMI result Body Mass Index 27.1 Office Procedures Incision and Drainage Details: neck abscess Incision and drainage performed by: Judy Nava Informed consent given: Yes Consent signed: No Anesthesia: none Incision with: needle Drainage quality: purulent Probed cavity: Yes Culture taken: No Lesion: erythema, drainage and fluctuance Dressing: other (bandaid) Patient tolerated procedure: well Complications: No Assessment & Plan Assessment & Plan (1) Abscess of neck: Code(s): L02.11 - Cutaneous abscess of neck Plan Most likely abscess vs cyst I&D in the office today Plan - Start Keflex to address the infection associated with the abscess. - Maintain warm compresses to help reduce discomfort. - Tylenol or motrin as needed for pain - follow up with surgeon as scheduled on Wednesday Medications: New cephalexin 500 mg PO Q6H 28 caps 0RF Coding Level of Care Code Est Pt Level 4 (45099) Diagnoses Abscess of neck L02.11
[2024-12-20 12:06] VITALS: BP 110/62; PULSE 64; TEMP 36.6; O2SAT 95; BMI 27.1
--- OUTSIDE RECORDS SUMMARY | 2024-12-20 12:37 | XMS_ITS | Data Portability ---
Author Organization [facility], [facility] Address [address] [place] [address] Care Team Providers Care Rock Crusher Operator Name Role Phone [facility] Referring Provider Assessment Encounter Date Assessment Date Assessment LastModified by Organization Details LastModified Time 04/17/2023 04/17/2023 I provided real -time medical direction via phone for this encounter, and was available for additional phone based assistance as needed. I have reviewed and agree with the Assessment and Plan as documented by the Film Cleaner. Patient given the opportunity to ask questions. [...] Assessment and Plan as documented by the Film Cleaner. Patient given the opportunity to ask questions. Advised also follow-up with PCP after the holiday weekend. If develops CP/severe SOB/turning blue/uncontrolle d n/v/d or black/bloody emesis or stool/ AMS/ syncope/ hi fever unresponsive to APAP to call 911- verbalized understanding of instructions [email or web address] Not available 05/28/2023 23:29:31 Plan of Treatment Reminders Order Date Submit Date Provider Last Modified By Organization Details Last Modified Time Details Appointments None recorded. Lab rapid SARS CoV 2 Ag, QL IA, respiratory specimen 2022 023 [email or web address], [phone] 23:30:39 Referral None recorded. Procedures None recorded. Surgeries None recorded. Imaging None recorded. Medication Orders pred[facility]one 20 mg tablet 2022 023 [id number] [address] [place] [address], [id number], 3 23:30:40 Delsym 12 hour 30 mg/5 mL oral suspension, extended release 2022 023 [id number], [address] [place] [address], [place], [id number], 3 23:30:40 prednisone 20 mg tablet 2022 023 [id number], [address] [place] [address], [id number], 3 17:04:15 Delsym 12 hour 30 mg/5 mL oral suspension, extended release 2022 023 [id number], [address] [place] [address], [id number], 3 17:04:15 Patient TargetsNo targets recorded. Patient [...] Main - [facility] ed [address] [facility], [place], [address] 05/28/2023 21:04:03 Result Notes None recorded. Medical [...] Address Organization Details Last Updated DateTime 3 14054.3 52 g 97 % 97 % 98.3 [degF] 20 /min 72 /min 157.48 cm 138/80 mm[Hg] Not Available [employer] production 3 17:31:15 Date Recorded Heart rate Respiratory rate Body temperature Oxygen saturation Oxygen saturation in Arterial blood by Pulse oximetry Systolic And Diastolic Provider Name and Address Organization Details Last Updated DateTime 3 90 /min 18 /min 99.5 [degF] 94 % 94 % 131/84 mm[Hg] Not Available [employer] 3 16:50:54 Date Recorded Body weight Heart rate Respiratory rate Body height Oxygen saturation Oxygen saturation in Arterial blood by Pulse oximetry Body temperature Systolic And Diastolic Provider Name and Address Organization Details Last Updated DateTime 3 18364.7 2 g 87 /min 18 /min 157.48 cm 96 % 96 % 97.7 [degF] 130/70 mm[Hg] Not Available [employer] 3 20:57:50 Social History None recorded. Functional Status None recorded. Mental Status None recorded. Family History Nothing Reported. Medical History No medical history recorded. Gynecological HistoryNo gynecological history recorded. Obstetrics History GPAL:G 0 P 0 0 0 0 Past Encounters Encounter ID Performer Location Encounter Start Date Encounter Closed Date Diagnosis/Indication Diagnosis SNOMED-CT Code Diagnosis ICD10 Code Diagnosis Note [id number] Chikis Gonzalez MD Main - [address] [address] 04/05/2023 17:31:13 04/06/2023 11:29:43 Dyspnea 273484935 R06.00 I provided real -time medical direction via phone for this encounter, and was available for additional phone based assistance as needed. I have reviewed and agree with the Assessment and Plan as documented by the Film Cleaner. Patient given the opportunit y to ask [...] since she reduced use of albuterol inhaler. [id number] Donya Farrell MD Main - [facility] [address] [place] [phone] 04/17/2023 16:50:53 04/19/2023 09:53:43 Respiratory tract congestion and cough [id number] R05.9 [id number] Elenita Iyer MD Main - [facility] [address] [place] [phone] 05/28/2023 20:57:44 06/01/2023 12:03:10 Cough [id number] R05.9 Patient requesting azithromyc in and prednisone [...] Glover Member ID Guarantor Name 06/01/2023 1 [facility] - DOS ON OR AFTER 2022 - DUAL ELIGIBLE - CARE HOME OPTIONS AND ONE CARE (MEDICARE REPLACEMENT/ADV ANTAGE - HMO) Karli Victor [id number] Karli Victor Notes Date Note Type Note [...] ................... ................... ................... ................... ................... ................... ........ Film Cleaner Note From Sha Davies: Dispatched to above [...] fluid intake and get rest. Spoke with [facility] physician who requests and ambulatory assessment. Assessment preformed, patient was easily able to walk over 50 feet without assistance or any difficulty, no change in respiratory status. Patient states she feels less anxious after assessment, agrees with advice given. SC12 cleared scene. EOR. ................... ................... ................... ................... ................... ................... ................... ........ Disposition: Fulfilled Chikis Gonzalez MD [address] [facility], [place], [address], [employer] 04/05/2023 23:19:25 04/17/2023 text/html CRC Nursing Assessment: Chief Complaints: Shortness of Breath/Dyspnea PMH: Severe Persistent Mental Illness (SPMI) Allergies: No Known Comments: Finished Amoxicillin 2 days ago for a sinus infection. Increased dyspnea with increased PRN Proair inhaler use. History of emphysema. Speaking full sentences. Donya Farrell MD [address] [facility],[address], [place], [address], [employer] 04/17/2023 21:48:51 05/28/2023 text/html ROS as noted in the [facility] CRC Nurse Triage Notes (Jeanne Lockett): Reason [...] and an antibiotic. Member is awaiting an machine fur cleaner appt. Member has an inhaler but not working . Member has a cough with tightness when she breaths, sputum is thick and white. Member is not taking anything OTC RED FLAGS when to call 911 ................... ................... ................... ................... ................... ................... ................... ........ Film Cleaner Note From Sha Davies: 62yo F c/o [...] prednisone for 4 days and Delsym. The [facility] was questioning COPD/asthma overlap but she denies a history of COPD or asthma. She does have an inhaler - has plenty of albuterol in it and she is using it 4-5 times a day.. Elenita Iyer MD [address] [facility],[address], [place], [address], [place] [facility] 05/28/2023 23:31:23 OBGyn Episode No OBEpisode recorded.
== END 2024-12-20 13:45 | disposition home or self-care (01) ==
PROVIDERS: PCP Internal Medicine; Visit Provider Physician Assistant Medical
DX: L02.11 Cutaneous abscess of neck (principal)

== ENCOUNTER → 2024-12-20 11:47 | Outpatient (BNVA) | payer OTHER, SELFPAY | PROVIDERS: PCP Internal Medicine; Visit Provider Physician Assistant Medical | DX: L02.11 Cutaneous abscess of neck (principal) | CPT/HCPCS: 99212 ==

== ENCOUNTER 2024-12-25 09:05 | Day surgery (SDC) | payer OTHER, SELFPAY ==
[2024-12-21 09:06] VITALS: BMI 27.1
--- NOTE | 2024-12-22 12:53 | HO.ANESPROP2 ---
Documented by User: Luz Elena Saenz NP 12/22/24 12:55 HPI - Anesthesia Eval Consult details Narrative: 64 yr old female for excision of infected cyst on neck & posterior right thigh s/p cyst excision 08/2024 Recently on keflex following 11/2024 urgent care visit Smoker PMFSH Active Problems Active Problems: All Active Problems Epidermal inclusion cyst (Acute) Epidermal cyst of neck (Acute) Hordeolum externum of right lower eyelid (Acute) Wheezing on auscultation (Acute) Acute respiratory disease (Acute) Sebaceous cyst of breast (Acute) Infected pilonidal cyst (Acute) Sebaceous cyst of skin of left breast (Acute) Sebaceous cyst of left axilla (Acute) No vaccination-pt refuse (Acute) COVID-19 vaccination declined (Acute) Vitamin D deficiency (Acute) Refused influenza vaccine (Acute) Nicotine dependence, cigarettes, uncomplicated (Acute) Mixed urge and stress incontinence (Acute) Generalized anxiety disorder (Acute) Hidradenitis suppurativa of multiple sites (Acute) Dyslipidemia (Acute) Past Medical History Medical History Wheezing on auscultation Acute respiratory disease Depression Nicotine dependence, cigarettes, uncomplicated Mixed urge and stress incontinence Generalized anxiety disorder Hidradenitis suppurativa of multiple sites Erythema intertrigo ADHD Dyslipidemia Auditory hallucinations Family History Family History Father Substance use disorder Mother Lung cancer Substance use disorder Maternal Grandmother Diabetes mellitus Brother Lung cancer Substance use disorder Mental health disorder Brother Substance use disorder Brother Substance use disorder Brother Substance use disorder Brother Substance use disorder Sister Substance use disorder Mental health disorder Son No problems noted. Family history of problems with anesthesia: No Surgical History Surgical History Hx of excision of epidermal inclusion cyst (09/19/24) History of excision of epidermal inclusion cyst (07/24/24) H/O Spinal surgery History of hemorrhoidectomy History of excision of epidermal inclusion cyst (10/24/21) H/O oophorectomy History of Problems with Anesthesia: No Social History [facility] Are you a primary reservoir caretaker to a significant other at home: No Do you presently have visiting nurse or other home services: No Alcohol intake: current Alcohol intake frequency: does not drink Patient Tobacco Use Status: Current everyday Tobacco user Tobacco use type: Cigarette Cigarette Packs Per Day: 0.5 Cigarettes Per Day: 7 e-Cigarette/Vaping Use: Never Used Second Hand Smoke Exposure: No Have you been hit, kicked, punched, or otherwise hurt by someone within the past year? If so, by whom?: No Are you DNR?: No Advance Directives: No Advance Directives Information Provided: Yes service: No Current occupational status: unemployed Cognitive needs: No Hearing needs: No Vision needs: No Meds Allergies Allergy/AdvReac Type Severity Reaction Status Date / Time adhesive tape Allergy Intermediate Blister Verified 12/20/24 12:10 egg Allergy Mild Nausea Verified 12/20/24 12:10 lorazepam AdvReac Intermediate increased Verified 12/20/24 12:10 anxiety & anger Home Medications ?Medication ?Instructions ?Recorded ?Confirmed ?Last Taken ?Type clonazepam 0.5 mg tablet 0.25 mg PO DAILY PRN Anxiety 09/02/22 12/25/24 Unknown History ascorbate calcium (vitamin C) 500 500 mg PO DAILY 12/13/23 12/25/24 Unknown History mg tablet albuterol sulfate 90 mcg/actuation 2 puff inhalation Q4-6H PRN 07/20/24 12/25/24 Unknown History aerosol inhaler wheezing Saccharomyces boulardii 250 mg 250 mg PO BID 07/21/24 12/25/24 Unknown History capsule (Daily Probiotic (S. boulardii)) cholecalciferol (vitamin D3) 25 25 mcg PO QAM 07/21/24 12/25/24 Unknown History mcg (1,000 unit) tablet (Vitamin D3) coenzyme Q10 100 mg capsule 100 mg PO DAILY 07/21/24 12/25/24 Unknown History lamotrigine 25 mg tablet 25 mg PO DAILY 07/21/24 12/25/24 12/25/24 History multivit with minerals-iron 18 1 tab PO QAM 07/21/24 12/25/24 Unknown History mg-folic ac 400 mcg-vit K 25 mcg tablet (One Daily Women's) benzonatate 100 mg capsule 200 mg PO BID PRN cough 12/07/24 12/25/24 Unknown History Exam Height,Weight and Vital Signs: Height 5 ft 2 in Weight 67.132 kg Assessment and Plan Final Anesthetic Review Family History of Problems with Anesthesia: No History of Problems with Anesthesia: No Documented by User: Alaina Fairchild MD 12/25/24 10:27 [facility] Past Medical History Medical History Wheezing on auscultation Acute respiratory disease Depression Nicotine dependence, cigarettes, uncomplicated Mixed urge and stress incontinence Generalized anxiety disorder Hidradenitis suppurativa of multiple sites Erythema intertrigo ADHD Dyslipidemia Auditory hallucinations Family History Family History Father Substance use disorder Mother Lung cancer Substance use disorder Maternal Grandmother Diabetes mellitus Brother Lung cancer Substance use disorder Mental health disorder Brother Substance use disorder Brother Substance use disorder Brother Substance use disorder Brother Substance use disorder Sister Substance use disorder Mental health disorder Son No problems noted. Surgical History Surgical History Hx of excision of epidermal inclusion cyst (09/19/24) History of excision of epidermal inclusion cyst (07/24/24) H/O Spinal surgery History of hemorrhoidectomy History of excision of epidermal inclusion cyst (10/24/21) H/O oophorectomy Social History Social History Housing: Condominium Are you a primary reservoir caretaker to a significant other at home: No Do you presently have visiting nurse or other home services: No Alcohol intake: current Alcohol intake frequency: does not drink Patient Tobacco Use Status: Current everyday Tobacco user Tobacco use type: Cigarette Cigarette Packs Per Day: 0.5 Cigarettes Per Day: 7 e-Cigarette/Vaping Use: Never Used Second Hand Smoke Exposure: No Have you been hit, kicked, punched, or otherwise hurt by someone within the past year? If so, by whom?: No Are you DNR?: No Advance Directives: No Advance Directives Information Provided: Yes service: No Current occupational status: unemployed Cognitive needs: No Hearing needs: No Vision needs: No Meds Allergies Allergy/AdvReac Type Severity Reaction Status Date / Time adhesive tape Allergy Intermediate Blister Verified 12/20/24 12:10 egg Allergy Mild Nausea Verified 12/20/24 12:10 lorazepam AdvReac Intermediate increased Verified 12/20/24 12:10 anxiety & anger Home Medications ?Medication ?Instructions ?Recorded ?Confirmed ?Last Taken ?Type clonazepam 0.5 mg tablet 0.25 mg PO DAILY PRN Anxiety 09/02/22 12/25/24 Unknown History ascorbate calcium (vitamin C) 500 500 mg PO DAILY 12/13/23 12/25/24 Unknown History mg tablet albuterol sulfate 90 mcg/actuation 2 puff inhalation Q4-6H PRN 07/20/24 12/25/24 Unknown History aerosol inhaler wheezing Saccharomyces boulardii 250 mg 250 mg PO BID 07/21/24 12/25/24 Unknown History capsule (Daily Probiotic (S. boulardii)) cholecalciferol (vitamin D3) 25 25 mcg PO QAM 07/21/24 12/25/24 Unknown History mcg (1,000 unit) tablet (Vitamin D3) coenzyme Q10 100 mg capsule 100 mg PO DAILY 07/21/24 12/25/24 Unknown History lamotrigine 25 mg tablet 25 mg PO DAILY 07/21/24 12/25/24 12/25/24 History multivit with minerals-iron 18 1 tab PO QAM 07/21/24 12/25/24 Unknown History mg-folic ac 400 mcg-vit K 25 mcg tablet (One Daily Women's) benzonatate 100 mg capsule 200 mg PO BID PRN cough 12/07/24 12/25/24 Unknown History Exam Airway Mallampati Class: II TM Dist: >3cm Neck ROM: Full Loose/Missing/Broken Teeth: Yes, Upper and Lower Assessment and Plan Assessment Anesthesia Assessment: Anesthesia Plan Discussed and Chart Reviewed Final Anesthetic Review NPO: Yes ASA Class: II Final Preanesthetic Review: No Changes in Pt Med Stat, Meds/Allgs Chart Reviewed, Consent Obtained/Reviewed and Anes Risks/Benef Reviewed Patient Risk: Intermediate Procedure Risk: Low Anesthetic Plan Anesthetic Plan: GA Disposition: Standard PACU
[2024-12-25] VITALS (9 sets, daily range): BP systolic 102–126; BP diastolic 53–65; PULSE 63–80; RESP 13–18; TEMP 36.4–36.6; O2SAT 94–100; BMI 26.8
[2024-12-25] MEDS: Lactated Ringers 1,000 ML 100 ML IVCONT (09:38)
--- NOTE | 2024-12-25 10:50 | P.HPSUR_ITS ---
Pre-Procedural Eval Section A - 24 Hr Update-Section A only Date of Service: 12/25/24 The patient is an INPATIENT: No Changes since office visit: Yes Patient answered all questions; No Cold of Flu in the past 2 weeks, No New Medical Problems and No Changes in Medication The patient has been examined within 24 hours of the surgical procedure. The History & Physical has been completed within 30 days and I have reviewed it.: Yes Section B - Complete if H&P > 30 days Chief Complaint: Epidermal cyst Details of Present Illness: New cyst in the left axilla, previously infected bilateral posterior neck cysts Relevant Family History (Specify if Yes): No Relevant Social History: None Present Medications: see Short Stay Collaborative assessment Medical History: No relevant PMH History of Previous Operations: No relevant previous surgery Allergies: Allergies Allergy/AdvReac Type Severity Reaction Status Date / Time adhesive tape Allergy Intermediate Blister Verified 12/20/24 12:10 egg Allergy Mild Nausea Verified 12/20/24 12:10 lorazepam AdvReac Intermediate increased Verified 12/20/24 12:10 anxiety & anger Review of Systems Sugical H&P ROS: Negative: Constitution, Cardiovascular, Respiratory, Neurological, Psychiatric, Hem-Onc, Allergic/Immunologic, Gastrointestinal, Genitourinary, Musculoskeletal, Integumentary, Endocrine and Eyes/Ears/N ose/Throat Exam Surgical H&P Exam: Normal: HEENT, Normal: Heart, Normal: Lungs, Normal: Extremities, Normal: Abdomen, Normal: Skin and Normal: Neurological Plan Diagnosis/Plan: Unchanged I have reviewed the history and physical and performed a pertinent physical examination on my patient. No changes have occurred unless specified. Time Spent With Patient Time: Total time managing care of this patient today ____ minutes.
--- NOTE | 2024-12-25 11:55 | W.PM.OPN ---
Operative Note Operative Note Date of Service: 12/25/24 Narrative: Preoperative diagnosis: Infected epidermal inclusion cyst posterior neck bilateral, and epidermal inclusion cyst left axilla Postoperative diagnosis: Same Procedure: Excision epidermal inclusion cyst posterior neck bilateral, and left axilla Surgeon: Troy Macias MD Pattern Storage Clerk: Ricco Rajput PA-C, Saba Padilal, MS-3 Anesthesia: General endotracheal Indications for procedure: 64-year-old female patient presenting with a recent history of an infected epidermal inclusion cyst posterior neck we initially placed on antibiotics with improvement in the infection. She now presents for excision of bilateral posterior neck epidermal inclusion cyst. In addition she has a cyst of the left axilla which she is requesting excision. Operative findings: Posterior left neck cyst measures 3 by 2 cm. Posterior right neck cyst measures approximately 2 cm round. Cyst in the left axilla measures 1 cm in diameter. Specimen: Epidermal inclusion cyst posterior neck bilateral, left axilla Estimated blood loss: 3 mL Complications: None Procedure details: Patient was brought to the OR and placed in a supine position. After administering general anesthesia she was placed in a prone position. The patient's posterior neck was prepped with Betadine and draped in a sterile fashion. Patient received preoperative antibiotics and Venodyne boots were in place. Local anesthesia was infiltrated around both posterior neck cysts. Beginning on the left side, an elliptical incision was oriented transversely in the neck to incorporate the previously infected cyst. The incision was carried out through subcutaneous tissue and around the cyst wall. No active infection was noted at this time. Hemostasis was assured using electrocautery. The lesion was passed off the table and sent to pathology for further examination. Attention was then directed to the right posterior neck where again an elliptical incision was created to encompass the entire cyst and carried down through subcutaneous tissue and around the cyst wall. Hemostasis was assured using electrocautery. Skin was closed in both incisions using interrupted 3-0 nylon sutures. Sterile dressings consisting of 4 x 4 gauze and paper tape were then applied. The patient was then placed back in a supine position and the left axillary epidermal inclusion cyst prepped with Betadine and draped in a sterile fashion. Local anesthesia was infiltrated around the cyst wall. An elliptical incision was then made oriented transversely and carried out through subcutaneous tissue and around the cyst wall. The lesion was passed off the table and sent to pathology for further examination. Hemostasis was assured using electrocautery. Skin was closed using interrupted 4-0 nylon sutures. Sterile dressings consisting of 4 x 4 gauze and paper tape were then applied. The patient tolerated the procedure well. Sponge, instrument, and needle counts reported as correct. The patient was transferred to PACU in stable condition.
== END 2024-12-25 13:27 | disposition home or self-care (01) ==
PROVIDERS: PCP Internal Medicine; Visit Provider Surgery
PROC: (CPT 11423; principal; 2024-12-25 11:20)
DX: L72.0 Epidermal cyst (principal); L72.3 Sebaceous cyst; L73.2 Hidradenitis suppurativa; L30.4 Erythema intertrigo; E78.5 Hyperlipidemia, unspecified; J06.9 Acute upper respiratory infection, unspecified; R06.2 Wheezing; N39.46 Mixed incontinence; F32.A Depression, unspecified; R44.0 Auditory hallucinations; Z79.899 Other long term (current) drug therapy; Z79.1 Long term (current) use of non-steroidal anti-inflammatories (NSAID); Z79.51 Long term (current) use of inhaled steroids; L23.1 Allergic contact dermatitis due to adhesives; Z88.8 Allergy status to other drugs, medicaments and biological substances; Z91.012 Allergy to eggs; Z98.890 Other specified postprocedural states; F17.210 Nicotine dependence, cigarettes, uncomplicated
CPT/HCPCS: 11423; 11442; 11401; 88304; J0131; J0690; J1100; J2003; J2250; J2405; J2704; J3010

== ENCOUNTER → 2024-12-25 09:05 | Outpatient (BNV) | payer OTHER, SELFPAY | PROVIDERS: PCP Internal Medicine; Visit Provider Surgery | DX: L72.0 Epidermal cyst (principal) | CPT/HCPCS: 11401; 11422; 11423 ==

== ENCOUNTER 2025-01-02 08:45 | Outpatient (AMB) | payer OTHER, SELFPAY ==
--- NOTE | 2025-01-02 08:47 | A.OFFVIS_ITS ---
Vital Signs 01/02/25 09:01 Weight 146 lb BP 113/56 L Blood Pressure Location Rt brachial Position Sitting Pulse 64 Intake Visit Reasons: S/P exc. infected cyst bilat. neck & posterior Rt Intake Note: Patient is seen in office for post op assessment post excision epidermal inclusion cyst posterior neck bilateral, and left axilla. Pt c/o: reports incisions healing well. Denies redness, oozing. Lt axilla and neck sutures removed without incident. 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 She tolerated the procedure well and returns today for wound check and suture removal. [facility] Medical History (Updated 01/02/25 @ 09:08 by Troy Macias MD) Wheezing on auscultation Acute respiratory disease Depression Nicotine dependence, cigarettes, uncomplicated Mixed urge and stress incontinence Generalized anxiety disorder Hidradenitis suppurativa of multiple sites Erythema intertrigo ADHD Dyslipidemia Auditory hallucinations Surgical History (Updated 01/01/25 @ 11:59 by VERONICA Chen) History of excision of epidermal inclusion cyst (12/25/24) Hx of excision of epidermal inclusion cyst (09/19/24) History of excision of epidermal inclusion cyst (07/24/24) H/O Spinal surgery History of hemorrhoidectomy History of excision of epidermal inclusion cyst (10/24/21) H/O oophorectomy Family History Father Substance use disorder Mother Lung cancer Substance use disorder Maternal Grandmother Diabetes mellitus Brother Lung cancer Substance use disorder Mental health disorder Brother Substance use disorder Brother Substance use disorder Brother Substance use disorder Brother Substance use disorder Sister Substance use disorder Mental health disorder Son No problems noted. Social History Housing: Condominium Are you a primary caregiver assisted living to a significant other at home: No Do you presently have visiting nurse or other home services: No Alcohol intake: current Alcohol intake frequency: does not drink Patient Tobacco Use Status: Current everyday Tobacco user Tobacco use type: Cigarette Cigarette Packs Per Day: 0.5 Cigarettes Per Day: 7 e-Cigarette/Vaping Use: Never Used Second Hand Smoke Exposure: No service: No Current occupational status: unemployed Cognitive needs: No Hearing needs: No Vision needs: No Female Reproductive History Menstrual Age of Menarche: 16 Physical Exam Vital Signs: Last Vital Signs Pulse 64 01/02/25 09:01 BP 113/56 L 01/02/25 09:01 Neck Other: Posterior neck wounds are clean, dry, and intact without redness or discharge. Sutures removed and incisions found to be well healed Chest Other: Left axillary incision is clean, dry, and intact. Sutures removed and wounds found to be well healed. Assessment & Plan Assessment & Plan (1) Hidradenoma: Code(s): D23.9 - Other benign neoplasm of skin, unspecified Category: Medical Plan Patient tolerated the previous excision well without any ill side effects. She has multiple complaints of skin lesions throughout her body which I think would be best monitored by dermatology. We will refer to [facility] for further evaluation and screening. Orders: Referrals Dermatology Referral D23.9 - Other benign neoplasm of skin, unspecified Coding Level of Care Code Global (26539) Diagnoses Hidradenoma D23.9
[2025-01-02 09:01] VITALS: BP 113/56; PULSE 64
== END 2025-01-02 09:46 | disposition home or self-care (01) ==
LOC: HO.HGS 08:46
PROVIDERS: PCP Internal Medicine; Visit Provider Surgery
DX: D23.9 Other benign neoplasm of skin, unspecified (principal)
CPT/HCPCS: 99024

== ENCOUNTER → 2025-01-02 08:45 | Outpatient (BNVA) | payer OTHER, SELFPAY | PROVIDERS: PCP Internal Medicine; Visit Provider Surgery | DX: Z48.02 Encounter for removal of sutures (principal); D23.9 Other benign neoplasm of skin, unspecified | CPT/HCPCS: 99212 ==

== ENCOUNTER 2025-01-16 09:29 | Outpatient (AMB) | payer OTHER, SELFPAY ==
--- NOTE | 2025-01-16 09:43 | MHC.OFFVIS ---
Intake Visit Reasons: 2wk follow up neck wound check Intake Note: Pt reports for SR of excision site left neck. No complaints regarding this site. 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 1 month cholecalciferol (vitamin D3) (Vitamin D3) 25 mcg PO QAM clonazepam 0.25 mg PO DAILY PRN coenzyme Q10 100 mg PO DAILY erythromycin 0.5 inches ophthalmic-Right QID fluticasone propionate 110 mcg/actuation 1 puff inhalation Q12H hydrocortisone-pramoxine 1-1 % 1 appl MD QID PRN ibuprofen 600 mg PO Q8H PRN lamotrigine 25 mg PO DAILY upohhhnddprl-ugo-wzva-FA-vit K 18 mg iron-400 mcg-25 mcg (One Daily Women's) 1 tab PO QAM nicotine 1 patch transdermal DAILY nystatin 1 appl topical BID PRN rosuvastatin 5 mg PO 3XW 3 months Saccharomyces boulardii (Daily Probiotic (S. boulardii)) 250 mg PO BID sertraline 50 mg PO DAILY HPI Comments Details: Karli reports itchiness in the incision but denies any bleeding or discharge. Generally feels improved today. She also reports a lump in the region between the vagina and rectum for which she will be seeing crown perforator operator for further evaluation. [facility] Medical History (Updated 01/02/25 @ 09:08 by Troy Macias MD) Wheezing on auscultation Acute respiratory disease Depression Nicotine dependence, cigarettes, uncomplicated Mixed urge and stress incontinence Generalized anxiety disorder Hidradenitis suppurativa of multiple sites Erythema intertrigo ADHD Dyslipidemia Auditory hallucinations Surgical History (Updated 01/01/25 @ 11:59 by VERONICA Chen) History of excision of epidermal inclusion cyst (12/25/24) Hx of excision of epidermal inclusion cyst (09/19/24) History of excision of epidermal inclusion cyst (07/24/24) H/O Spinal surgery History of hemorrhoidectomy History of excision of epidermal inclusion cyst (10/24/21) H/O oophorectomy Family History Father Substance use disorder Mother Lung cancer Substance use disorder Maternal Grandmother Diabetes mellitus Brother Lung cancer Substance use disorder Mental health disorder Brother Substance use disorder Brother Substance use disorder Brother Substance use disorder Brother Substance use disorder Sister Substance use disorder Mental health disorder Son No problems noted. Social History Housing: Condominium Are you a primary healthcare network consultant to a significant other at home: No Do you presently have visiting nurse or other home services: No Alcohol intake: current Alcohol intake frequency: does not drink Patient Tobacco Use Status: Current everyday Tobacco user Tobacco use type: Cigarette Cigarette Packs Per Day: 0.5 Cigarettes Per Day: 7 e-Cigarette/Vaping Use: Never Used Second Hand Smoke Exposure: No service: No Current occupational status: unemployed Cognitive needs: No Hearing needs: No Vision needs: No Female Reproductive History Menstrual Age of Menarche: 16 Physical Exam Const General: comfortable Nutritional Appearance: well nourished Orientation/consciousness: patient oriented x3 Neck Neck images:  1. Incision in the left posterior neck is clean and intact. All but 2 sutures were removed today and wounds were found to be healing nicely. Neuro General: patient oriented x3 Assessment & Plan Assessment & Plan (1) Hidradenitis suppurativa of multiple sites: Code(s): L73.2 - Hidradenitis suppurativa Category: Medical Plan Wounds are much improved. All the 2 sutures removed today and patient will return in 1 week for the remaining 2 sutures. Coding Level of Care Code Global (61751) Diagnoses Hidradenitis suppurativa of multiple sites L73.2
== END 2025-01-16 09:53 | disposition home or self-care (01) ==
LOC: HO.HGS 09:31
PROVIDERS: PCP Internal Medicine; Visit Provider Surgery
DX: L73.2 Hidradenitis suppurativa (principal)
CPT/HCPCS: 99024

== ENCOUNTER → 2025-01-16 09:29 | Outpatient (BNVA) | payer OTHER, SELFPAY | PROVIDERS: PCP Internal Medicine; Visit Provider Surgery | DX: K64.9 Unspecified hemorrhoids (principal); Z48.817 Encounter for surgical aftercare following surgery on the skin and subcutaneous tissue | CPT/HCPCS: 99212 ==

== ENCOUNTER 2025-01-16 14:24 | Outpatient (AMB) | payer OTHER, SELFPAY ==
[2025-01-16 14:46] VITALS: BP 114/66; PULSE 74; TEMP 36.8; O2SAT 96; BMI 26.5
--- NOTE | 2025-01-16 14:46 | MHC.OFFWIV ---
Intake Vital Signs 01/16/25 14:46 Height 5 ft 2 in Weight 145 lb BMI 26.5 BP 114/66 Blood Pressure Location Lt brachial Position Sitting Pulse 74 Pulse Source Pulse Oximeter Temp 98.3 F Temp Source Oral Pulse Oximetry (%) 96 Oxygen Delivery Method Room Air Intake Visit Reasons: EP Bulging between vagina/rectum Intake Note: presents with bulge to perineum area for about a week- started as mild pressure, tender to touch, swollen inguinal lymph nodes. Also c/o asymptomatic rash developing on forearms Patient Tobacco Use Status: Current everyday Tobacco user Allergies adhesive tape Allergy (Intermediate, Verified 01/16/25 14:48) Blister egg Allergy (Mild, Verified 01/16/25 14:48) Nausea lorazepam Adverse Reaction (Intermediate, Verified 01/16/25 14:48) increased anxiety & anger Do you need a note to return to daycare/school/sports/work: No HPI HPI Comments History of Present Illness Details History of Present Illness - The patient is a 64-year-old female presenting with a bulge between the rectum and vagina. - The issue began approximately five days ago, initially presenting as pressure, followed by the sensation of a bulge upon wiping. - The patient reported tenderness in the lymph nodes and a sensation of wetness in her pants, suggesting possible discharge. - There is uncertainty whether the bulge is a hemorrhoid or a cyst, with the location being between the rectum and vagina. - The patient had stitches removed earlier in the day and was advised to consult a message broker developer, but was referred to urgent care due to scheduling constraints. - The patient also mentioned exposure to a friend's dermatitis, though no symptoms have developed yet. - She denies bleeding, discharge, fever, chills, pain in the vagina, or discharge. Physical Exam General: Cooperative, healthy appearing, comfortable, no acute distress and well developed Orientation: Patient oriented x3 Limitations: No limitations Respiratory: Normal respiratory effort and able to speak in complete sentences. Clear to auscultation bilaterally Cardiovascular: Regular rate and rhythm. Normal S1 and S2 GI: Soft, non-tender, non-distended abdomen. No TTP of the 4 quadrants. Rectal: Large, raised, tender, oval shaped external single hemorrhoid noted above the anus in the perineum Skin: Rash noted on the left forearm Patient was informed and verbally consented to the use of an ambient scribe for clinic note documentation during this visit. COUNT INCLUDES THE [facility] Medical History (Updated 01/02/25 @ 09:08 by Troy Macias MD) Wheezing on auscultation Acute respiratory disease Depression Nicotine dependence, cigarettes, uncomplicated Mixed urge and stress incontinence Generalized anxiety disorder Hidradenitis suppurativa of multiple sites Erythema intertrigo ADHD Dyslipidemia Auditory hallucinations Surgical History (Updated 01/01/25 @ 11:59 by VERONICA Chen) History of excision of epidermal inclusion cyst (12/25/24) Hx of excision of epidermal inclusion cyst (09/19/24) History of excision of epidermal inclusion cyst (07/24/24) H/O Spinal surgery History of hemorrhoidectomy History of excision of epidermal inclusion cyst (10/24/21) H/O oophorectomy Family History Father Substance use disorder Mother Lung cancer Substance use disorder Maternal Grandmother Diabetes mellitus Brother Lung cancer Substance use disorder Mental health disorder Brother Substance use disorder Brother Substance use disorder Brother Substance use disorder Brother Substance use disorder Sister Substance use disorder Mental health disorder Son No problems noted. Social History Housing: Condominium Are you a primary health care marketing specialist to a significant other at home: No Do you presently have visiting nurse or other home services: No Alcohol intake: current Alcohol intake frequency: does not drink Patient Tobacco Use Status: Current everyday Tobacco user Tobacco use type: Cigarette Cigarette Packs Per Day: 0.5 Cigarettes Per Day: 7 e-Cigarette/Vaping Use: Never Used Second Hand Smoke Exposure: No service: No Current occupational status: unemployed Cognitive needs: No Hearing needs: No Vision needs: No Female Reproductive History Menstrual Age of Menarche: 16 Review of Systems Const All systems reviewed & are unremarkable except as noted in HPI and below Physical Exam Vital Signs: Last Vital Signs Temp 98.3 F 01/16/25 14:46 Pulse 74 01/16/25 14:46 BP 114/66 01/16/25 14:46 Pulse Ox 96 01/16/25 14:46 Oxygen Delivery Method Room Air 01/16/25 14:46 BMI result Body Mass Index 26.5 Assessment & Plan Assessment & Plan (1) Hemorrhoid: Code(s): Patrick64.9 - Unspecified hemorrhoids Qualifiers: Hemorrhoid type: unspecified Qualified Code(s): K64.9 - Unspecified hemorrhoids Plan Most likely hemorrhoid, external vs cyst vs abscess however has no induration with erythema Plan - Will treat hemorrhoid with anusol cream, suppositories, colace, and witch nestor pads - Referral to a colorectal specialist is recommended if symptoms persist or do not improve with standard hemorrhoid treatment. Medications: New hydrocortisone acetate (Anusol-HC) [address] BID 24 ea 0RF 7 days docusate sodium (Colace) 100 mg PO DAILY 30 caps 0RF hydrocortisone 2.5% 1 appl topical BID PRN 30 grams 0RF Skin Irritation hydrocortisone 2.5% (Anusol-HC) [address] BID-QID PRN 30 grams 0RF hemorrhoids Coding Level of Care Code Est Pt Level 3 (86561) Diagnoses Hemorrhoids, unspecified hemorrhoid type K64.9 Hemorrhoid type: unspecified
== END 2025-01-16 16:41 | disposition home or self-care (01) ==
PROVIDERS: PCP Internal Medicine; Visit Provider Physician Assistant Medical
DX: K64.9 Unspecified hemorrhoids (principal)

== ENCOUNTER 2025-03-22 14:30 | Outpatient (REF) | payer OTHER, SELFPAY ==
--- NOTE | ~2025-03-22 | XR_ITS ---
EXAMINATION: XR CHEST CLINICAL INFORMATION: R05.9 - Cough, unspecified COMPARISON: X-ray 11/13/2020 TECHNIQUE: 2 views of the chest were obtained. FINDINGS: The cardiomediastinal silhouette is within normal limits. The lungs are well expanded. There is no focal consolidation, edema. Subtle blunting of bilateral costophrenic angles could reflect trace effusions. No pneumothorax. Mild thoracic spine spondylosis. XR/XR chest 2V IMPRESSION: Subtle bilateral costophrenic angle blunting could reflect trace pleural effusion.. No focal consolidation. Electronically signed by: Demarcus Fong MD 03/22/2025 03:45 PM EDT
[2025-03-23 11:21] LABS: Resp Syncy Virus RNA Qual PCR NEGATIVE (Negative); SARS COV2 PCR INHOUSE NEGATIVE (Negative)
== END 2025-03-22 14:31 | disposition home or self-care (01) ==
LOC: HO.HMGCX 14:30
PROVIDERS: Physician Assistant; PCP Internal Medicine; Visit Provider Physician Assistant Medical
DX: R05.1 Acute cough (principal); F17.210 Nicotine dependence, cigarettes, uncomplicated
CPT/HCPCS: 71046; 87637; 99212

== ENCOUNTER 2025-03-22 14:30 | Outpatient (AMB) | payer OTHER, SELFPAY ==
[2025-03-22 14:32] VITALS: BP 114/72; PULSE 80; TEMP 36.7; O2SAT 96; BMI 24.3
--- NOTE | 2025-03-22 14:32 | AM.OFFWIN_ITS ---
Intake Vital Signs 03/22/25 14:32 Height 5 ft 2 in Weight 133 lb BMI 24.3 BP 114/72 Blood Pressure Location Lt brachial Position Sitting Pulse 80 Pulse Source Pulse Oximeter Temp 98.1 F Temp Source Oral Pulse Oximetry (%) 96 Oxygen Delivery Method Room Air Intake Visit Reasons: EP -Cough, Congestion, ?Fever, Chills Intake Note: Patient presents with c/o chest congestion/tightness, sinus/head congestion, cough, SOB, sweats x1 1/2 weeks Patient Tobacco Use Status: Current everyday Tobacco user Allergies adhesive tape Allergy (Intermediate, Verified 03/22/25 14:35) Blister egg Allergy (Mild, Verified 03/22/25 14:35) Nausea lorazepam Adverse Reaction (Intermediate, Verified 03/22/25 14:35) increased anxiety & anger Do you need a note to return to daycare/school/sports/work: No HPI HPI Comments History of Present Illness Details History - The patient is a 64-year-old female pr esenting with difficulty breathing and cough. - The patient reports experiencing diffi culty breathing and a persistent cough for approximately one and a half weeks. - The cough is productive, with yellow-g reen sputum. - She also reports a sore throat and occ asional nausea. - She has been feeling tired and has elijah n in the back from coughing. - The patient denies fever but experienc es sweating episodes. - She has been managing symptoms with ib uprofen and Tylenol, taken separately. - She has no fever or chills, FRIEDMAN, CP, SO B, abd pain, n/v/d. - She has no sick contacts. Physical Exam General: Cooperative, healthy appearing, comfortable and no acute distress Orientation/consciousness: Patient oriented x3 Limitations: No limitations Head: Normal to inspection Ears: Hearing grossly normal bilaterally, external ears normal and TM's normal bilaterally Nose: Normal external nose present, normal nares present, and no nasal discharge present. Face and sinus: Sinuses nontender to palpation. Mouth: Normal oral and palatal mucosa present and moist mucous membranes noted. Throat: Sore throat noted. Tonsils normal. Uvula is midline. Posterior oropharynx with erythema and no exudates. Eyes: Appearance normal, both eyes and all related structures Neck: Normal visual inspection, full ROM. No lymphadenopathy noted. Respiratory: Clear to auscultation bilaterally. Normal respiratory effort, able to speak in complete sentences. No respiratory distress, not tachypneic, no tripod positioning and no use of accessory muscles. Cardiovascular: Regular rate and rhythm. Normal S1 and S2 Skin: No rashes or lesions noted Patient was informed and verbally consented to the use of an ambient scribe for clinic note documentation during this visit [facility] Medical History (Updated 01/02/25 @ 09:08 by Troy Macias MD) Wheezing on auscultation Acute respiratory disease Depression Nicotine dependence, cigarettes, uncomplicated Mixed urge and stress incontinence Generalized anxiety disorder Hidradenitis suppurativa of multiple sites Erythema intertrigo ADHD Dyslipidemia Auditory hallucinations Surgical History (Updated 01/01/25 @ 11:59 by VERONICA Chen) History of excision of epidermal inclusion cyst (12/25/24) Hx of excision of epidermal inclusion cyst (09/19/24) History of excision of epidermal inclusion cyst (07/24/24) H/O Spinal surgery History of hemorrhoidectomy History of excision of epidermal inclusion cyst (10/24/21) H/O oophorectomy Family History Father Substance use disorder Mother Lung cancer Substance use disorder Maternal Grandmother Diabetes mellitus Brother Lung cancer Substance use disorder Mental health disorder Brother Substance use disorder Brother Substance use disorder Brother Substance use disorder Brother Substance use disorder Sister Substance use disorder Mental health disorder Son No problems noted. Social History Housing: Condominium Are you a primary career technical education instructor to a significant other at home: No Do you presently have visiting nurse or other home services: No Alcohol intake: current Alcohol intake frequency: does not drink Patient Tobacco Use Status: Current everyday Tobacco user Tobacco use type: Cigarette Cigarette Packs Per Day: 0.5 Cigarettes Per Day: 7 e-Cigarette/Vaping Use: Never Used Second Hand Smoke Exposure: No service: No Current occupational status: unemployed Cognitive needs: No Hearing needs: No Vision needs: No Female Reproductive History Menstrual Age of Menarche: 16 Review of Systems Const All systems reviewed & are unremarkable except as noted in HPI and below Physical Exam Vital Signs: Last Vital Signs Temp 98.1 F 03/22/25 14:32 Pulse 80 03/22/25 14:32 BP 114/72 03/22/25 14:32 Pulse Ox 96 03/22/25 14:32 Oxygen Delivery Method Room Air 03/22/25 14:32 BMI result Body Mass Index 24.3 Results Reviewed Results Reviewed: will review her CXR in the office Assessment & Plan Assessment & Plan (1) Cough: Code(s): R05.9 - Cough, unspecified Qualifiers: Cough type: acute Qualified Code(s): R05.1 - Acute cough Plan Most likely URI vs pneumonia vs bronchitis vs covid vs flu plan - Plan to perform a resp panel and chest X-ray to rule out pneumonia. - Symptomatic management with ibuprofen and Tylenol as needed. - tessalon perles and albuterol as needed for cough - start the z-uzair as directed - will call with the results of the CXR and resp panel - will adjust the treatment plan based off the results - tylenol or motrin as needed for pain or fever Orders: Orders Resp Pathogen Panel - [facility] Today J06.9 - Acute upper respiratory infection, unspecified XR chest 2V Today R05.9 - Cough, unspecified Medications: New benzonatate 100 mg PO bid-tid PRN 21 caps 0RF Cough 7 days azithromycin For 250 mg dose pack: take 500 mg today (day 1), then 250 mg for 4 days (days 2-5) PO 6 tabs 0RF albuterol sulfate 90 mcg/actuation 2 puffs inhalation Q6H PRN 8.5 grams 0RF shortness of breath or wheezing or cough Coding Level of Care Code Est Pt Level 4 (44520) Diagnoses Acute cough R05.1 Cough type: acute
--- OUTSIDE RECORDS SUMMARY | 2025-03-22 18:21 | XMS_ITS | Data Portability ---
Author Organization [employer] [employer], [facility] Address [address] [place] [address] Care Team Providers Care Microsoft Developer Name Role Phone [facility] Referring Provider [phone] Assessment Encounter Date Assessment Date Assessment LastModified by Organization Details LastModified Time 04/17/2023 04/17/2023 I provided real -time medical direction via phone for this encounter, and was available for additional phone based assistance as needed. I have reviewed and agree with the Assessment and Plan as documented by the Automotive Service Consultant. Patient given the opportunity to ask questions. [...] Assessment and Plan as documented by the Automotive Service Consultant. Patient given the opportunity to ask questions. Advised also follow-up with PCP after the holiday weekend. If develops CP/severe SOB/turning blue/uncontrolle d n/v/d or black/bloody emesis or stool/ AMS/ syncope/ hi fever unresponsive to APAP to call 911- verbalized understanding of instructions [email or web address] Not available 05/28/2023 23:29:31 Plan of Treatment Reminders Order Date Submit Date Provider Last Modified By Organization Details Last Modified Time Details Appointments None recorded. Lab rapid SARS CoV 2 Ag, QL IA, respiratory specimen 2022 023 [email or web address], [id number] 23:30:39 Referral None recorded. Procedures None recorded. Surgeries None recorded. Imaging None recorded. Medication Orders prednisone 20 mg tablet 2022 023 [id number] [address] [place] [address], [id number], 3 23:30:40 Delsym 12 hour 30 mg/5 mL oral suspension, extended release 2022 023 [id number], [address] [place] [address], [place], [address], 3 23:30:40 prednisone 20 mg tablet 2022 023 [id number] [address] [place] [address], [address], 3 17:04:15 Delsym 12 hour 30 mg/5 mL oral suspension, extended release 2022 023 [id number] [address] [place] [address], [id number], 3 17:04:15 Patient TargetsNo targets recorded. Patient InstructionsNo instructions recorded. Reason for Referral None Reported. Results Created Date Observation Date Name Description Value Unit Range Abnormal Flag Note LastModifiedBy Organization Detail LastModifiedTime 05/28/2005/28/2023 rapid SARS CoV 2 Ag, QL IA, respi rator y speci men rapid SARS CoV 2 Ag, QL IA, respiratory specimen negati ve Not Available Main - [facility] ed [address] [facility], [place], [address] 05/28/2023 21:04:03 Result Notes None recorded. Medical [...] Address Organization Details Last Updated DateTime 3 48564.3 52 g 97 % 97 % 98.3 [degF] 20 /min 72 /min 157.48 cm 138/80 mm[Hg] Not Available [employer] 3 17:31:15 Date Recorded Heart rate Respiratory rate Body temperature Oxygen saturation Oxygen saturation in Arterial blood by Pulse oximetry Systolic And Diastolic Provider Name and Address Organization Details Last Updated DateTime 3 90 /min 18 /min 99.5 [degF] 94 % 94 % 131/84 mm[Hg] Not Available [employer] 3 16:50:54 Date Recorded Body weight Heart rate Respiratory rate Body height Oxygen saturation Oxygen saturation in Arterial blood by Pulse oximetry Body temperature Systolic And Diastolic Provider Name and Address Organization Details Last Updated DateTime 3 16792.7 2 g 87 /min 18 /min 157.48 cm 96 % 96 % 97.7 [degF] 130/70 mm[Hg] Not Available [employer] 3 20:57:50 Social History None recorded. Functional Status None recorded. Mental Status None recorded. Family History Nothing Reported. Medical History No medical history recorded. Gynecological HistoryNo gynecological history recorded. Obstetrics History GPAL:G 0 P 0 0 0 0 Past Encounters Encounter ID Performer Location Encounter Start Date Encounter Closed Date Diagnosis/Indication Diagnosis SNOMED-CT Code Diagnosis ICD10 Code Diagnosis IMO Codes Diagnosis Note [id number] Chikis Gonzalez MD Main - [address] [phone] 04/05/2023 17:31:13 04/06/2023 11:29:43 Dyspnea 122318895 R06.00 I provided real -time medical direction via phone for this encounter, and was available for additional phone based assistance as needed. I have reviewed and agree with the Assessment and Plan as documented by the Automotive Service Consultant. Patient given the opportunit y to ask [...] since she reduced use of albuterol inhaler. [id number] Donya Farrell MD Main - [facility] [address] [place] [phone] 04/17/2023 16:50:53 04/19/2023 09:53:43 Respiratory tract congestion and cough 658430926 R05.9 [id number] Elenita Iyer MD Main - [facility] [address] [place] [phone] 05/28/2023 20:57:44 06/01/2023 12:03:10 Cough 29390874 R05.9 Patient requesting azithromyc in and prednisone [...] Glover Member ID Guarantor Name 06/01/[address] [facility] - DOS ON OR AFTER 2022 - DUAL ELIGIBLE - SENIOR LIVING OPTIONS AND ONE CARE (MEDICARE REPLACEMENT/ADV ANTAGE - HMO) Karli Victor [id number] Karli Victor Notes Date Note Type Note [...] ................... ................... ................... ................... ................... ................... ........ Automotive Service Consultant Note From Sha Davies: Dispatched to above [...] fluid intake and get rest. Spoke with [facility] physician who requests and ambulatory assessment. Assessment preformed, patient was easily able to walk over 50 feet without assistance or any difficulty, no change in respiratory status. Patient states she feels less anxious after assessment, agrees with advice given. SC12 cleared scene. EOR. ................... ................... ................... ................... ................... ................... ................... ........ Disposition: Fulfilled Chikis Gonzalez MD [address] [place] [address],[address], [place], [phone], [employer] 04/05/2023 23:19:25 04/17/2023 text/html CRC Nursing Assessment: Chief Complaints: Shortness of Breath/Dyspnea PMH: Severe Persistent Mental Illness (SPMI) Allergies: No Known Comments: Finished Amoxicillin 2 days ago for a sinus infection. Increased dyspnea with increased PRN Proair inhaler use. History of emphysema. Speaking full sentences. Donya Farrell MD [address] [place] [address],[address], [place], [address], [employer] 04/17/2023 21:48:51 05/28/2023 text/html ROS as noted in the [facility] Nurse Triage Notes (Jeanne Lockett): Reason [...] and an antibiotic. Member is awaiting an motor vehicles supervisor appt. Member has an inhaler but not working . Member has a cough with tightness when she breaths, sputum is thick and white. Member is not taking anything OTC RED FLAGS when to call 911 ................... ................... ................... ................... ................... ................... ................... ........ Automotive Service Consultant Note From Sha Davies: 62yo F c/o [...] prednisone for 4 days and Delsym. The [facility] was questioning COPD/asthma overlap but she denies a history of COPD or asthma. She does have an inhaler - has plenty of albuterol in it and she is using it 4-5 times a day.. Elenita Iyer MD [address] [facility],[address], [place], [phone], [employer] 05/28/2023 23:31:23 OBGyn Episode No OBEpisode recorded.
== END 2025-03-22 15:30 | disposition home or self-care (01) ==
PROVIDERS: PCP Internal Medicine; Visit Provider Physician Assistant Medical
DX: R05.1 Acute cough (principal)

== ENCOUNTER → 2025-03-22 15:35 | Outpatient (BNV) | payer OTHER, SELFPAY | PROVIDERS: PCP Internal Medicine; Visit Provider Radiology Diagnostic Ultrasound | DX: R05.9 Cough, unspecified (principal) | CPT/HCPCS: 71046 ==

== ENCOUNTER 2025-03-23 09:42 | Outpatient (REF) | payer OTHER, SELFPAY | END 2025-03-23 09:43 | disposition home or self-care (01) | LOC: HO.LAB 09:42 | PROVIDERS: Visit Provider Physician Assistant | DX: Z13.89 Encounter for screening for other disorder (principal) ==

== ENCOUNTER 2025-05-01 13:42 | Outpatient (AMB) | payer OTHER, SELFPAY ==
[2025-05-01 13:47] VITALS: BP 110/60; PULSE 82; RESP 16; TEMP 36.8; O2SAT 96; BMI 24.9
--- NOTE | 2025-05-01 13:47 | A.OFFPC_ITS ---
Vital Signs 05/01/25 13:47 Height 5 ft 2 in Weight 136 lb BMI 24.9 BP 110/60 Blood Pressure Location Rt brachial Respiration 16 Pulse 82 Pulse Source Pulse Oximeter Temp 98.3 F Temp Source Oral Pulse Oximetry (%) 96 Oxygen Delivery Method Room Air Intake Visit Reasons: Rt shoulder pain no injury noted Intake Note: Pt is here today c/o Rt shoulder pain no injury noted Table Tender Sludge Required: No Allergies adhesive tape Allergy (Intermediate, Verified 05/01/25 13:58) Blister egg Allergy (Mild, Verified 05/01/25 13:58) Nausea lorazepam Adverse Reaction (Intermediate, Verified 05/01/25 13:58) increased anxiety & anger Medication List - Last Reconciled 05/01/25 by Leda Al MD albuterol sulfate 90 mcg/actuation 2 puffs inhalation Q4-6H PRN albuterol sulfate 90 mcg/actuation 2 puffs inhalation Q6H PRN ascorbate calcium (vitamin C) 500 mg PO DAILY benzonatate 100 mg PO bid-tid PRN 7 days chlorhexidine gluconate 4% (Hibiclens) 1 appl topically every 2-3 days, in shower lather entire body and leave on for one minute before rinsing. 1 month cholecalciferol (vitamin D3) (Vitamin D3) 25 mcg PO QAM clonazepam 0.25 mg PO DAILY PRN coenzyme Q10 100 mg PO DAILY docusate sodium (Colace) 100 mg PO DAILY fluticasone propionate 110 mcg/actuation 1 puff inhalation Q12H hydrocortisone 2.5% 1 appl topical BID PRN ibuprofen 600 mg PO Q8H PRN lamotrigine 25 mg PO DAILY [id number]-[id number]-bmcd-FA-vit K 18 mg iron-400 mcg-25 mcg (One Daily Women's) 1 tab PO QAM rosuvastatin 5 mg PO 3XW 3 months sertraline 100 mg PO QAM Tobacco use date assessed: 05/01/25 Dental Screening Dental Screen Date: 05/01/25 Did you have a dental visit in the last 12 months?: Yes Did you have a dental problem in the last 6 months where you did not have access to dental care?: No Was dental information given to patient?: Patient has dentist HPI Rt shoulder pain no injury noted HPI Details The patient is a 64 year old individual presenting for evaluation of shoulder and chest pain, and for health maintenance. The patient reports recurrent fleeting shoulder pain, described as a sharp, occasionally burning sensation that occurs intermittently. Range of motion exercises of the shoulder do not elicit pain. No history of trauma The patient also reports an intermittent, sharp, jabbing pain in the chest wall near the breastbone. The patient denies symptoms of heartburn. The patient is treated for hyperlipidemia with rosuvastatin three times a week and CoQ10. Recent lab work showed an improvement in cholesterol levels, with LDL decreasing from 122 to 95 mg/dL and total cholesterol from 204 to 173 mg/dL. The patient reports no side effects from the medication. The patient reports being postmenopausal since the early 40s , has never used hormone therapy. The patient has no history of bone fractures. A mammogram last year was normal. Past imaging includes annual lung CT scans which have shown mild emphysema and a 2 mm subpleural nodule in the right upper lobe, which is being monitored. A recent chest x-ray was within normal limits. The patient has a history of recurrent neck cysts, and one that was surgically removed has returned superficially. Complains of recurrent cysts forming her neck, axillary area and abdomen and thigh. Would like a referral now to see Dermatology. Has been seen by Dr. Diaz in the past and has been tried on several creams and oral antibiotic all of which has not helped PFSH Medical History Costochondritis Depression Nicotine dependence, cigarettes, uncomplicated Mixed urge and stress incontinence Generalized anxiety disorder Hidradenitis suppurativa of multiple sites ADHD Dyslipidemia Surgical History History of excision of epidermal inclusion cyst (12/25/24) Hx of excision of epidermal inclusion cyst (09/19/24) History of excision of epidermal inclusion cyst (07/24/24) H/O Spinal surgery History of hemorrhoidectomy History of excision of epidermal inclusion cyst (10/24/21) H/O oophorectomy Family History Father Substance use disorder Mother Lung cancer Substance use disorder Maternal Grandmother Diabetes mellitus Brother Lung cancer Substance use disorder Mental health disorder Brother Substance use disorder Brother Substance use disorder Brother Substance use disorder Brother Substance use disorder Sister Substance use disorder Mental health disorder Son No problems noted. Social History Housing: Condominium Are you a primary vp care management to a significant other at home: No Do you presently have visiting nurse or other home services: No Alcohol intake: current Alcohol intake frequency: does not drink Patient Tobacco Use Status: Current everyday Tobacco user Tobacco use type: Cigarette Cigarette Packs Per Day: 0.5 Cigarettes Per Day: 7 e-Cigarette/Vaping Use: Never Used Second Hand Smoke Exposure: No service: No Current occupational status: unemployed Cognitive needs: No Hearing needs: No Vision needs: No Female Reproductive History Menstrual Age of Menarche: 16 Questionnaire Thrive Questionnaire Date Thrive assessed: 12/13/23 I am a: Patient What is your living situation today?: I have a steady place to live Within the past 12 months, did the food you bought not last and you didn't have the money to get more?: Never true Within the past 12 months, did you worry whether your food would run out before you got money to buy more?: Never true Do you have trouble paying for medicines?: No Do you have trouble getting transportation to medical appointments?: No Do you have trouble paying your heating and electricity bill?: No Do you have trouble taking care of your child, family member or friend?: No Do you have trouble with day-to-day activities such as bathing, preparing meals, shopping, managing finances, etc.?: No Are you currently unemployed and looking for a job?: No Are you interested in more education?: Yes Please select the resources that you would like help with: None Currently or been in a relationship where the following occur: No concerns reported THRIVE Score: 0 ARCELIA-7 AMB Questionnaire ARCELIA-7 Date ARCELIA - 7 assessed: 01/07/24 Source: Developed by Drs. Bahman Titus, Gena Martinez, Sergio Ching and colleagues, with an educational radha from [employer] Review of Systems Const All systems reviewed & are unremarkable except as noted in HPI and below Physical exam (Primary Care) Vital Signs: Last Vital Signs Temp 98.3 F 05/01/25 13:47 Pulse 82 05/01/25 13:47 Resp 16 05/01/25 13:47 BP 110/60 05/01/25 13:47 Pulse Ox 96 05/01/25 13:47 Oxygen Delivery Method Room Air 05/01/25 13:47 BMI result Body Mass Index 24.9 Tobacco/Smoking Status: Tobacco use Status Tobacco use date assessed 05/01/25 05/01/25 13:55 Patient Tobacco Use Status Current everyday Tobacco 05/01/25 13:55 Tobacco use type Cigarette 05/01/25 13:55 e-Cigarette/Vaping Use Never Used 05/01/25 13:55 Thrive Assessment: Date of Thrive Assessment Date Thrive assessed 12/13/23 05/01/25 13:55 Currently or been in a relationship where the following occur: No concerns reported Const Other: Alert oriented x3, no acute distress noted, normal gait HENMT Head: Yes normocephalic Ears: TM's normal bilaterally and EAC's normal Face and sinus: Yes face symmetric Mouth: Normal oral and palatal mucosa present and moist mucous membranes Eyes General: appearance normal, both eyes and all related structures Neck Neck: Yes full ROM, Yes no lymphadenopathy and Yes supple Chest Other: Slight tenderness on palpation over left sternal border, no gross bone deformity or lesions seen Resp Auscultation: clear to auscultation bilaterally Cardio Rate: regular rate Rhythm: regular rhythm Heart sounds: S1 normal heart sound present and S2 normal heart sound present GI Palpation (GI): Soft to palpation, nontender, no guarding and no masses Auscultation: normal bowel sounds General: Yes no CVA tenderness Back/Spine/Pelvis Other: Slight tenderness on palpation over medial aspect of left scapular area, no gross bone deformity or skin lesion noted in the area Back: no CVA tenderness and No back tenderness Skin Other: Multiple scars noted on posterior neck, axillary area, lower abdominal area Neuro General: gait normal, moves all extremities, Normal light touch and pain sensation, no focal motor deficits and CN's II-XI intact bilaterally Extrem General: Yes full ROM, Yes no joint enlargement, Yes no clubbing, cyanosis or edema and Yes normal gait Results Reviewed Results Reviewed: Name: Karli Victor Age/Sex: 64/F : 1960 Unit#: [id number] Attend Dr: Leda Al MD Re12/07/24 Status: DEP REF Location: [facility] Disch: SPEC : [id number] BERTRAM: 12/07/24-1509 STATUS: COMP REQ : [id number] RECD: 12/07/24-[address]: Leda Al MD COMP: 12/07/24-1649 ENTERED: 12/07/24-[address]: ORDERED: AST, ALT, Lipid Panel Test Result Flag Reference AST (GOT) 26 5-31 U/L ALT (GPT) 21 0-31 U/L Triglyceride 108 <150 mg/dL Desirable Triglyceride: less than 150 mg/dL Borderline High Triglyceride 150-199 mg/dL High Triglyceride: 200-499 mg/dL Very High Triglyceride: greater than or equal to 5OO mg/dL Cholesterol 173 <200 mg/dL Desirable Cholesterol: less than 200 mg/dL Borderline High Cholesterol: 200-239 mg/dL High Cholesterol: greater than 239 mg/dL LDL Calculated 95 <100 mg/dL Desirable LDL: less than 100 mg/dL Near Optimal/Above Optimal LDL: 110-129 mg/dL Borderline High LDL: 130-159 mg/dL High LDL: 160-189 mg/dL Very High LDL: greater than or equal to 190 mg/dL HDL 57 >40 mg/dL Desirable HDL: greater than 40 mg/dL Note: This HDL assay may give artificially low results in patients with liver disease. Coding Level of Care Code Est Pt Level 4 (08578) Diagnoses Encounter for screening for osteoporosis Z13.820 Hidradenitis suppurativa of multiple sites L73.2 Dyslipidemia E78.5 Costochondritis M94.0 Assessment & Plan Assessment & Plan (1) Encounter for screening for osteoporosis: Code(s): Z13.820 - Encounter for screening for osteoporosis Plan: DEXA scan ordered, reinforced importance of doing regular weight-bearing exercise, taking adequate calcium from dietary sources and taking vitamin-D 3 at least 2000 units daily (2) Hidradenitis suppurativa of multiple sites: Code(s): L73.2 - Hidradenitis suppurativa Category: Medical Plan: Has had multiple she is excised by surgeon, which keep coming back. Referred to [facility] for further evaluation management (3) Dyslipidemia: Code(s): E78.5 - Hyperlipidemia, unspecified Category: Medical Plan: Reviewed recent fasting lipid profile with patient with levels now within normal limit . Continue rosuvastatin 5 mg taken 3 times a week together with Co Q10 supplements. , in addition to adherence to low-cholesterol diet and regular exercise, at least 30 minutes 3 to 4 times a week. Advised patient to make healthy food choices, eat more fruits, vegetables, whole grains, wild caught fish and low-fat dairy. Limit amount of meat and fried or fatty food products, as well as processed foods and fast foods. (4) Costochondritis: Code(s): M94.0 - Chondrocostal junction syndrome [Tietze] Category: Medical Plan: Advised to try massaging Advil cream to affected area as needed for pain control Orders: Orders MM tomosynthesis screening BI Today Z12.31 - Encounter for screening mammogram for malignant neoplasm of breast XR DEXA axial skeleton Today Z13.820 - Encounter for screening for osteoporosis, Z78.0 - Asymptomatic menopausal state Referrals Dermatology Referral L73.2 - Hidradenitis suppurativa
== END 2025-05-01 14:48 | disposition home or self-care (01) ==
LOC: HO.HMCC 13:43
PROVIDERS: PCP Internal Medicine; Visit Provider Internal Medicine
DX: Z13.820 Encounter for screening for osteoporosis (principal); L73.2 Hidradenitis suppurativa; E78.5 Hyperlipidemia, unspecified; M94.0 Chondrocostal junction syndrome [Tietze]

== ENCOUNTER → 2025-05-01 13:42 | Outpatient (BNVA) | payer OTHER, SELFPAY | PROVIDERS: PCP Internal Medicine; Visit Provider Internal Medicine | DX: M25.511 Pain in right shoulder (principal); R07.9 Chest pain, unspecified; E78.5 Hyperlipidemia, unspecified; L73.2 Hidradenitis suppurativa; M94.0 Chondrocostal junction syndrome [Tietze]; Z79.899 Other long term (current) drug therapy | CPT/HCPCS: 99212 ==